=== PATIENT | female | born 1985 | race Caucasian/White ===

== ENCOUNTER 2023-03-24 08:50 | Emergency (ER) | payer BC ==
[2023-03-24 09:15] LABS: Absolute Lymphocytes (CBC) 1.8 K/uL (0.7-4.9); Hematocrit 38.4 % (36.0-45.0); Lymphocytes % 30.8 % (15.3-44.8); MCV 87.2 fL (80-100); MPV 8.8 fL (7.6-11.3); Platelets 231 thou/uL (152-406); RBC Red Blood Cell Count 4.41 M/uL (3.86-4.86)
--- OUTSIDE RECORDS SUMMARY | 2023-03-24 09:17 | XMS REPORT | Continuity of Care Document ---
:1985 Author Organization [facility] t Address [address] [facility]. [address] [place] [address] Care Team Providers Name Role Phone Bryon Lopez Jr. Primary Care Physician Courtney Brooks Attending Clinician Unavailable Barbara Macdonald Attending Clinician STEPHANI BARRETT Attending Clinician Unavailable Yanira Perry MD Attending Clinician ISSAC BARBER Attending Clinician Unavailable Stephani Barrett PA-C Attending Clinician Doctor Unassigned, [place] Attending Clinician Unavailable KRISTIN LOZANO Attending Clinician Unavailable MD KRISTIN LOZANO Attending Clinician Unavailable KRISTIN LOZANO Admitting Clinician Unavailable MD KRISTIN LOZANO Admitting Clinician Unavailable Payers Payer Name Policy Type Policy Number Effective Date Expiration Date S karen [employer] 6 [id number] 2021 [facility] t [employer] of 00:00:00 - [facility] Problems Condition Condition Condition Status Onset Resolution Last Treating Co mments Source Name Details Category Date Date Treatment Clinician Date [id number] Reactive Problem Com wed airway Spirit disease - [facility]I with acute [facility] exacerbati [facility] on, Medical unspecifie Center d asthma severity, unspecifie d whether persistent Allergic Allergic Problem Commo n rhinitis rhinitis [facility] [id number] BMI Problem Common 34.0-34.9, [facility] adult - [facility] [id number] Gross Problem Common hematuria [facility] Chronic Chronic Problem Common obstructiv obstructiv Sp elias e e asthma, - CHI pulmonary unspecifie St disease d [facility] Exacerbati Unspecifie Problem C ommon on of d asthma Spirit asthma with - [facility]I (acute) exacerbati [facility] Allergic Chronic Problem Common rhinitis allergic Spirit caused by rhinitis - [facility]I pollen due to [facility] unspecifie [facility]ica [facility] d Center seasonalit y Allergies, Adverse Reactions, Alerts Allergy Allergy Status Severity Reaction(s) Onset Inactive Treating Comm ents Source Name Type Date Date Clinician Iodine Propensi Active Hives 2019-05 Throat Methodi ty to 2-[address] adverse 00:00: Hospita reaction 00 l s to drug Shrimp Propensi Active Hives 2019-05 Methodi ty to 2-24 st adverse 00:00: Hospita reaction 00 l s to drug Iodine Propensi Active Hives 2018-0 Univers ty to 614 ity of adverse 00:00: [place] reaction 00 [facility] Shellfis Propensi Active Hives 2018-0 Univer s h ty to 614 ity of Derived adverse 00:00: [place] reaction 00 [facility] IODINE DRUG Active Med Hives 2018-0 Univers INGREDI 614 ity of 00:00: [place] 00 [facility] SHELLFIS DRUG Active Anaphylaxis 2018-0 Uni vers H INGREDI 14 ity of DERIVED 00:00: [place] 00 [facility] Shellfis Shellfis Active hives Common h (FN) h (FN) [facility] [id number] Drug Active hives Common 82 allergy [facility] Family History Family Member Diagnosis Comments Start Date Stop Date Source Other [facility]ergies [facility] Diabetes [facility] Other Hearing loss [facility] Other Hypertension [facility] Other Stroke [facility] Social History Social Habit Start Date Stop Date Quantity Comments Source [facility] of [facility] - Use [facility] Sex Assigned At Common Sp elias - [facility] Exposure to 2020-06-18 2020-07-18 Not sure University of SARS-CoV-2 (event) 00:00:00 11:31:00 [facility] Alcohol intake 2020-06-05 2020-06-05 Lifetime Buddhist 00:00:00 00:00:00 non-drinker Hospital (finding) History of Social 2020-06-05 2020-06-[address] function 00:00:00 00:00:00 Hospital Tobacco use and 2018-10-14 2018-10-14 Smokeless Universit y of exposure 00:00:00 00:00:00 tobacco non-user [facility] [facility] Smoking Status Start Date Stop Date Source Never Smoker [facility] Medications Ordered Filled Start Stop Current Ordering Indication Dosage Frequency Signature Comments Components Source Medication Medication Date Date Medication? Clinician (SIG) Name Name Amoxicillin Amoxicillin 2022-05 No 1{table BID Amoxicilli -Pot -Pot 0-30 t} n-Pot Clavulanate Clavulanate 00:00: Clavulanat 875-125 MG 875-125 MG 00 e 875-125 MG Amoxicillin Amoxicillin 2022-05 No 1{table BID Amoxicilli -Pot -Pot 0-30 t} n-Pot Clavulanate Clavulanate 00:00: Clavulanat 875-125 MG 875-125 MG 00 e 875-125 MG Amoxicillin Amoxicillin 2022-05 No 1{table BID Amoxicilli -Pot -Pot 0-30 t} n-Pot Clavulanate Clavulanate 00:00: Clavulanat 875-125 MG 875-125 MG 00 e 875-125 MG Amoxicillin Amoxicillin 2022-05 No 1{table BID Amoxicilli -Pot -Pot 0-30 t} n-Pot Clavulanate Clavulanate 00:00: Clavulanat 875-125 MG 875-125 MG 00 e 875-125 MG Amoxicillin Amoxicillin 2022-05 No 1{table BID Amoxicilli -Pot -Pot 0-30 t} n-Pot Clavulanate Clavulanate 00:00: Clavulanat 875-125 MG 875-125 MG 00 e 875-125 MG Amoxicillin Amoxicillin 2022- No 1{table BID Amoxicilli -Pot -Pot 0-30 t} n-Pot Clavulanate Clavulanate 00:00: Clavulanat 875-125 MG 875-125 MG 00 e 875-125 MG Amoxicillin Amoxicillin 2022- No 1{table BID Amoxicilli -Pot -Pot 0-30 t} n-Pot Clavulanate Clavulanate 00:00: Clavulanat 875-125 MG 875-125 MG 00 e 875-125 MG Amoxicillin Amoxicillin 2022- No 1{table BID Amoxicilli -Pot -Pot 0-30 t} n-Pot Clavulanate Clavulanate 00:00: Clavulanat 875-125 MG 875-125 MG 00 e 875-125 MG Amoxicillin Amoxicillin 2022- No 1{table BID Amoxicilli -Pot -Pot 0-30 t} n-Pot Clavulanate Clavulanate 00:00: Clavulanat 875-125 MG 875-125 MG 00 e 875-125 MG Amoxicillin Amoxicillin 2022- No 1{table BID Amoxicilli -Pot -Pot 0-30 t} n-Pot Clavulanate Clavulanate 00:00: Clavulanat 875-125 MG 875-125 MG 00 e 875-125 MG Amoxicillin Amoxicillin 2022-1 No 1{table BID Amoxicilli -Pot -Pot 0-30 t} n-Pot Clavulanate Clavulanate 00:00: Clavulanat 875-125 MG 875-125 MG 00 e 875-125 MG Amoxicillin Amoxicillin 2022- No 1{table BID Amoxicilli -Pot -Pot 0-30 t} n-Pot Clavulanate Clavulanate 00:00: Clavulanat 875-125 MG 875-125 MG 00 e 875-125 MG Amoxicillin Amoxicillin 2022- No 1{table BID Amoxicilli -Pot -Pot 0-30 t} n-Pot Clavulanate Clavulanate 00:00: Clavulanat 875-125 MG 875-125 MG 00 e 875-125 MG Amoxicillin Amoxicillin 2022-1 No 1{table BID Amoxicilli -Pot -Pot 0-30 t} n-Pot Clavulanate Clavulanate 00:00: Clavulanat 875-125 MG 875-125 MG 00 e 875-125 MG allergy allergy 2023-0 No .2mL Common extract extract 6-30 Spirit 00:00: - [facility]I 00 [facility] allergy allergy 2023-0 No .2mL Common extract extract 30 Spirit 00:00: - [facility]I 00 [facility] allergy allergy 2023-0 No .2mL Common extract extract 10-30 Spirit 00:00: - [facility]I 00 [facility] allergy allergy 2023-0 No .2mL Common extract extract 10-30 Spirit 00:00: - [facility] 00 [facility] allergy allergy 2023-0 No .2mL Common extract extract 10-30 Spirit 00:00: - [facility] 00 [facility] allergy allergy 2023-0 No .2mL Common extract extract 10-30 Spirit 00:00: - [facility] allergy allergy 2023-0 No .2mL Common extract extract 10-30 Spirit 00:00: - CHI [facility] allergy allergy 2023-0 No .2mL Common extract extract 10-30 Spirit 00:00: - [facility] 00 [facility] allergy allergy 2023-0 No .2mL Common extract extract 10-30 Spirit 00:00: - [facility] 00 [facility] allergy allergy 2023-0 No .2mL Common extract extract 10-30 Spirit 00:00: - [facility] 00 [facility] allergy allergy 2023-0 No .2mL Common extract extract 10-30 Spirit 00:00: - [facility] 00 [facility] allergy allergy 2023-0 No .2mL Common extract extract 10-30 Spirit 00:00: - [facility] 00 [facility] allergy allergy 2023-0 No .2mL Common extract extract 10-30 Spirit 00:00: - [facility] 00 [facility] allergy allergy 2023-0 No .2mL Common extract extract 10-30 Spirit 00:00: - [facility] 00 [facility] allergy allergy 2023-0 No .2mL Common extract extract 10-30 Spirit 00:00: - [facility] 00 [facility] allergy allergy 2023-0 No .2mL Common extract extract 30 Spirit 00:00: - [facility] 00 [facility] allergy allergy 2023-0 No .2mL Common extract extract 6-30 Spirit 00:00: - [facility] 00 [facility] allergy allergy 3-0 No .2mL Common extract extract 630 Spirit 00:00: - [facility]I 00 [facility] allergy allergy 3-0 No .2mL Common extract extract 630 Spirit 00:00: - [facility] 00 [facility] allergy allergy 3-0 No .2mL Common extract extract 630 Spirit 00:00: - [facility] 00 [facility] allergy allergy 3-0 No .2mL Common extract extract 30 Spirit 00:00: - CHI [facility] allergy allergy 3-0 No .2mL Common extract extract 10-30 Spirit 00:00: - CHI [facility] allergy allergy 3-0 No .2mL Common extract extract 10-30 Spirit 00:00: - CH[facility] allergy allergy 3-0 No .2mL Common extract extract 10-30 Spirit 00:00: - CHI [facility] allergy allergy 3-0 No .2mL Common extract extract 10-30 Spirit 00:00: - CH[facility] allergy allergy 3-0 No .2mL Common extract extract 10-30 Spirit 00:00: - CHI [facility] allergy allergy 3-0 No .2mL Common extract extract 10-30 Spirit 00:00: - CHI [facility] allergy allergy 3-0 No .2mL Common extract extract 30 Spirit 00:00: - CHI [facility] allergy allergy 2023-0 No .2mL Common extract extract 10-30 Spirit 00:00: - [facility] 00 [facility] allergy allergy 2023-0 No .2mL Common extract extract 30 Spirit 00:00: - [facility] 00 [facility] allergy allergy 2023-0 No .2mL Common extract extract 30 Spirit 00:00: - [facility] 00 [facility] allergy allergy 2023-0 No .2mL Common extract extract 630 Spirit 00:00: - [facility] 00 [facility] allergy allergy 2023-0 No .2mL Common extract extract 630 Spirit 00:00: - [facility] 00 [facility] allergy allergy 2023-0 No .2mL Common extract extract 6-30 Spirit 00:00: - [facility] 00 [facility] allergy allergy 2023-0 No .2mL Common extract extract 30 Spirit 00:00: - [facility] 00 [facility] allergy allergy 3-0 No .2mL Common extract extract 30 Spirit 00:00: - [facility] 00 [facility] allergy allergy 2023-0 No .2mL Common extract extract 30 Spirit 00:00: - [facility] 00 [facility] allergy allergy 3-0 No .2mL Common extract extract 10-30 Spirit 00:00: - [facility]I 00 [facility] allergy allergy 3-0 No .2mL Common extract extract 10-30 Spirit 00:00: - CHI [facility] allergy allergy 3-0 No .2mL Common extract extract 10-30 Spirit 00:00: - CHI [facility] allergy allergy 3-0 No .2mL Common extract extract 10-30 Spirit 00:00: - CHI [facility] allergy allergy 3-0 No .2mL Common extract extract 10-30 Spirit 00:00: - CHI [facility] allergy allergy 3-0 No .2mL Common extract extract 10-30 Spirit 00:00: - CHI [facility] allergy allergy 3-0 No .2mL Common extract extract 10-30 Spirit 00:00: - [facility]I 00 [facility] allergy allergy 3-0 No .2mL Common extract extract 10-30 Spirit 00:00: - CHI [facility] allergy allergy 2023-0 No .2mL Common extract extract 10-30 Spirit 00:00: - [facility]I 00 [facility] allergy allergy 2023-0 No .2mL Common extract extract 10-30 Spirit 00:00: - [facility] 00 [facility] allergy allergy 2023-0 No .2mL Common extract extract 10-30 Spirit 00:00: - [facility]I 00 [facility] allergy allergy 2023-0 No .2mL Common extract extract 30 Spirit 00:00: - [facility]I 00 [facility] allergy allergy 2023-0 No .2mL Common extract extract 30 Spirit 00:00: - [facility]I 00 [facility] allergy allergy 2023-0 No .2mL Common extract extract 30 Spirit 00:00: - [facility] 00 [facility] allergy allergy 2023-0 No .2mL Common extract extract 10-30 Spirit 00:00: - [facility]I 00 [facility] allergy allergy 2023-0 No .2mL Common extract extract 10-30 Spirit 00:00: - [facility] 00 [facility] allergy allergy 2023-0 No .2mL Common extract extract 10-30 Spirit 00:00: - [facility] 00 [facility] allergy allergy 2023-0 No .2mL Common extract extract 10-30 Spirit 00:00: - [facility] 00 [facility] allergy allergy 3-0 No .2mL Common extract extract 10-30 Spirit 00:00: - [facility] 00 [facility] allergy allergy 3-0 No .2mL Common extract extract 10-30 Spirit 00:00: - [facility] 00 [facility] allergy allergy 3-0 No .2mL Common extract extract 10-30 Spirit 00:00: - CHI [facility] allergy allergy 3-0 No .2mL Common extract extract 10-30 Spirit 00:00: - [facility]I 00 [facility] allergy allergy 3-0 No .2mL Common extract extract 10-30 Spirit 00:00: - [facility] 00 [facility] allergy allergy 3-0 No .2mL Common extract extract 10-30 Spirit 00:00: - [facility] 00 [facility] allergy allergy 2023-0 No .2mL Common extract extract 10-30 Spirit 00:00: - [facility] 00 [facility] allergy allergy 2023-0 No .2mL Common extract extract 10-30 Spirit 00:00: - [facility] 00 [facility] allergy allergy 2023-0 No .2mL Common extract extract 10-30 Spirit 00:00: - [facility] 00 [facility] allergy allergy 2023-0 No .2mL Common extract extract 10-30 Spirit 00:00: - [facility] 00 [facility] allergy allergy 2023-0 No .2mL Common extract extract 10-30 Spirit 00:00: - [facility] 00 [facility] allergy allergy 2023-0 No .2mL Common extract extract 10-30 Spirit 00:00: - [facility]I 00 [facility] allergy allergy 2023-0 No .2mL Common extract extract 6-30 Spirit 00:00: - [facility] 00 [facility] allergy allergy 2023-0 No .2mL Common extract extract 630 Spirit 00:00: - [facility] 00 [facility] allergy allergy 2023-0 No .2mL Common extract extract 630 Spirit 00:00: - [facility] 00 [facility] allergy allergy 2023-0 No .2mL Common extract extract 630 [facility] 00:00: - [facility] 00 [facility] allergy allergy 2023-0 No .2mL Common extract extract 630 Spirit 00:00: - [facility] 00 [facility] allergy allergy 2023-0 No .15mL Common extract extract 6 Spirit 00:00: - [facility] 00 [facility] allergy allergy 2023-0 No .15mL Common extract extract 6 Spirit 00:00: - [facility] 00 [facility] allergy allergy 2023-0 No .15mL Common extract extract 6 Spirit 00:00: - [facility] 00 [facility] allergy allergy 2023-0 No .15mL Common extract extract 6 Spirit 00:00: - [facility] 00 [facility] allergy allergy 2023-0 No .15mL Common extract extract 6 Spirit 00:00: - [facility] 00 [facility] allergy allergy 2023-0 No .15mL Common extract extract 6 Spirit 00:00: - [facility] 00 [facility] allergy allergy 2023-0 No .15mL Common extract extract 6 Spirit 00:00: - [facility] 00 [facility] allergy allergy 2023-0 No .15mL Common extract extract 6-23 Spirit 00:00: - [facility] 00 [facility] allergy allergy 2023-0 No .15mL Common extract extract 6- Spirit 00:00: - [facility]I 00 [facility] allergy allergy 2023-0 No .15mL Common extract extract 6-23 Spirit 00:00: - [facility] 00 [facility] allergy allergy 2023-0 No .15mL Common extract extract 6- Spirit 00:00: - [facility] 00 [facility] allergy allergy 2023-0 No .15mL Common extract extract 6-23 Spirit 00:00: - [facility] 00 [facility] allergy allergy 2023-0 No .15mL Common extract extract 6-23 Spirit 00:00: - [facility] 00 [facility] allergy allergy 2023-0 No .15mL Common extract extract 6-23 Spirit 00:00: - [facility] 00 [facility] allergy allergy 2023-0 No .15mL Common extract extract 6-23 Spirit 00:00: - [facility] 00 [facility] allergy allergy 3-0 No .15mL Common extract extract 6-23 Spirit 00:00: - [facility] 00 [facility] allergy allergy 3-0 No .15mL Common extract extract 6-23 Spirit 00:00: - [facility] 00 [facility] allergy allergy 3-0 No .15mL Common extract extract 6- Spirit 00:00: - [facility] 00 [facility] allergy allergy 3-0 No .15mL Common extract extract 6-23 Spirit 00:00: - [facility] 00 [facility] allergy allergy 3-0 No .15mL Common extract extract 6 Spirit 00:00: - [facility] 00 [facility] allergy allergy 3-0 No .15mL Common extract extract 6-23 Spirit 00:00: - [facility] 00 [facility] allergy allergy 3-0 No .15mL Common extract extract 6- Spirit 00:00: - [facility] 00 [facility] allergy allergy 3-0 No .15mL Common extract extract 6-23 Spirit 00:00: - [facility] 00 [facility] allergy allergy 3-0 No .15mL Common extract extract 6-23 Spirit 00:00: - [facility] 00 [facility] allergy allergy 2023-0 No .15mL Common extract extract 6-23 Spirit 00:00: - [facility] 00 [facility] allergy allergy 2023-0 No .15mL Common extract extract 6-23 Spirit 00:00: - [facility] 00 [facility] allergy allergy 2023-0 No .15mL Common extract extract 6-23 Spirit 00:00: - [facility] 00 [facility] allergy allergy 2023-0 No .15mL Common extract extract 6-23 Spirit 00:00: - [facility] 00 [facility] allergy allergy 2023-0 No .15mL Common extract extract 6-23 Spirit 00:00: - [facility] 00 [facility] allergy allergy 2023-0 No .15mL Common extract extract 6-23 Spirit 00:00: - [facility] 00 [facility] allergy allergy 2023-0 No .15mL Common extract extract 6 Spirit 00:00: - [facility] 00 [facility] allergy allergy 2023-0 No .15mL Common extract extract 6 Spirit 00:00: - [facility] 00 [facility] allergy allergy 3-0 No .15mL Common extract extract 6 Spirit 00:00: - [facility] 00 [facility] allergy allergy 2023-0 No .15mL Common extract extract 6 [facility] 00:00: - [facility] 00 [facility] allergy allergy 2023-0 No .15mL Common extract extract 6 Spirit 00:00: - [facility] 00 [facility] allergy allergy 3-0 No .15mL Common extract extract 6 Spirit 00:00: - [facility] 00 [facility] allergy allergy 3-0 No .15mL Common extract extract 6 [facility] 00:00: - [facility] 00 [facility] allergy allergy 2023-0 No .15mL Common extract extract 6 [facility] 00:00: - [facility] 00 [facility] allergy allergy 2023-0 No .15mL Common extract extract 6 [facility] 00:00: - [facility] 00 [facility] allergy allergy 3-0 No .15mL Common extract extract 6 [facility] 00:00: - [facility] 00 [facility] allergy allergy 2023-0 No .15mL Common extract extract 10-23 Spirit 00:00: - [facility] 00 [facility] allergy allergy 2023-0 No .15mL Common extract extract 6 [facility] 00:00: - [facility] 00 [facility] allergy allergy 2023-0 No .15mL Common extract extract 6 [facility] 00:00: - [facility] 00 [facility] allergy allergy 2023-0 No .15mL Common extract extract 6 [facility] 00:00: - [facility] 00 [facility] allergy allergy 2023-0 No .15mL Common extract extract 6 [facility] 00:00: - [facility] 00 [facility] allergy allergy 2023-0 No .15mL Common extract extract 6 [facility] 00:00: - [facility] 00 [facility] allergy allergy 2023-0 No .15mL Common extract extract 623 Spirit 00:00: - [facility] 00 [facility] allergy allergy 2023-0 No .15mL Common extract extract 6-23 [facility] 00:00: - [facility] 00 [facility] allergy allergy 2023-0 No .15mL Common extract extract 6- Spirit 00:00: - [facility] 00 [facility] allergy allergy 2023-0 No .15mL Common extract extract 6- Spirit 00:00: - [facility] 00 [facility] allergy allergy 2023-0 No .15mL Common extract extract 6- Spirit 00:00: - [facility] 00 [facility] allergy allergy 2023-0 No .15mL Common extract extract 6 [facility] 00:00: - [facility] 00 [facility] allergy allergy 2023-0 No .15mL Common extract extract 6 [facility] 00:00: - [facility] 00 [facility] allergy allergy 2023-0 No .15mL Common extract extract 6 [facility] 00:00: - [facility] 00 [facility] allergy allergy 2023-0 No .15mL Common extract extract 6 Spirit 00:00: - [facility] 00 [facility] allergy allergy 2023-0 No .15mL Common extract extract 6 Spirit 00:00: - [facility] 00 [facility] allergy allergy 2023-0 No .15mL Common extract extract 6 [facility] 00:00: - [facility] 00 [facility] allergy allergy 2023-0 No .15mL Common extract extract 6 Spirit 00:00: - [facility] 00 [facility] allergy allergy 2023-0 No .15mL Common extract extract 6 [facility] 00:00: - [facility] 00 [facility] allergy allergy 2023-0 No .15mL Common extract extract 6-23 Spirit 00:00: - [facility] 00 [facility] allergy allergy 2023-0 No .15mL Common extract extract 6- Spirit 00:00: - [facility] 00 [facility] allergy allergy 2023-0 No .15mL Common extract extract 6- Spirit 00:00: - [facility] 00 [facility] allergy allergy 2023-0 No .15mL Common extract extract 6-23 [facility] 00:00: - [facility] 00 [facility] allergy allergy 2023-0 No .15mL Common extract extract 6-23 [facility] 00:00: - [facility] 00 [facility] allergy allergy 2023-0 No .15mL Common extract extract 6-23 [facility] 00:00: - [facility] 00 [facility] allergy allergy 2023-0 No .15mL Common extract extract 6 [facility] 00:00: - [facility] 00 [facility] allergy allergy 2023-0 No .15mL Common extract extract 6 [facility] 00:00: - [facility] 00 [facility] allergy allergy 2023-0 No .15mL Common extract extract 10-23 Spirit 00:00: - [facility] 00 [facility] allergy allergy 2023-0 No .15mL Common extract extract 10-23 [facility] 00:00: - [facility] 00 [facility] allergy allergy 2023-0 No .15mL Common extract extract 10-23 [facility] 00:00: - [facility] 00 [facility] allergy allergy 2023-0 No .15mL Common extract extract 10-23 [facility] 00:00: - [facility] 00 [facility] allergy allergy 2023-0 No .15mL Common extract extract 10-23 [facility] 00:00: - [facility] 00 [facility] allergy allergy 2023-0 No .1mL Common extract extract 6-16 Spirit 00:00: - [facility] 00 [facility] allergy allergy 2023-0 No .1mL Common extract extract 616 [facility] 00:00: - [facility] 00 [facility] allergy allergy 2023-0 No .1mL Common extract extract 6-16 [facility] 00:00: - [facility] 00 [facility] allergy allergy 2023-0 No .1mL Common extract extract 6-16 [facility] 00:00: - [facility] 00 [facility] allergy allergy 2023-0 No .1mL Common extract extract 6-16 [facility] 00:00: - [facility] 00 [facility] allergy allergy 2023-0 No .1mL Common extract extract 6-16 [facility] 00:00: - [facility] 00 [facility] allergy allergy 2023-0 No .1mL Common extract extract 6-16 [facility] 00:00: - [facility] 00 [facility] allergy allergy 2023-0 No .1mL Common extract extract 6-16 [facility] 00:00: - [facility] 00 [facility] allergy allergy 2023-0 No .1mL Common extract extract 6-16 [facility] 00:00: - [facility] 00 [facility] allergy allergy 2023-0 No .1mL Common extract extract 6-16 [facility] 00:00: - [facility] 00 [facility] allergy allergy 2023-0 No .1mL Common extract extract 6-16 [facility] 00:00: - [facility] 00 [facility] allergy allergy 3-0 No .1mL Common extract extract 6-16 [facility] 00:00: - [facility] 00 [facility] allergy allergy 3-0 No .1mL Common extract extract 6-16 [facility] 00:00: - [facility] 00 [facility] allergy allergy 3-0 No .1mL Common extract extract 6-16 [facility] 00:00: - [facility] 00 [facility] allergy allergy 3-0 No .1mL Common extract extract 616 [facility] 00:00: - [facility] 00 [facility] allergy allergy 3-0 No .1mL Common extract extract 16 [facility] 00:00: - [facility] 00 [facility] allergy allergy 3-0 No .1mL Common extract extract 16 [facility] 00:00: - [facility] 00 [facility] allergy allergy 3-0 No .1mL Common extract extract 616 [facility] 00:00: - [facility] 00 [facility] allergy allergy 3-0 No .1mL Common extract extract 16 [facility] 00:00: - [facility] 00 [facility] allergy allergy 3-0 No .1mL Common extract extract 616 [facility] 00:00: - [facility] 00 [facility] allergy allergy 3-0 No .1mL Common extract extract 16 [facility] 00:00: - [facility] 00 [facility] allergy allergy 3-0 No .1mL Common extract extract 6-16 [facility] 00:00: - [facility] 00 [facility] allergy allergy 2023-0 No .1mL Common extract extract -16 [facility] 00:00: - [facility] 00 [facility] allergy allergy 2023-0 No .1mL Common extract extract 6-16 [facility] 00:00: - [facility] 00 [facility] allergy allergy 3-0 No .1mL Common extract extract 6-16 [facility] 00:00: - [facility] 00 [facility] allergy allergy 2023-0 No .1mL Common extract extract [facility] 00:00: - [facility] 00 [facility] allergy allergy 2023-0 No .1mL Common extract extract [facility]16 [facility] 00:00: - [facility] 00 [facility] allergy allergy 2023-0 No .1mL Common extract extract [facility]16 [facility] 00:00: - [facility] 00 [facility] allergy allergy 3-0 No .1mL Common extract extract [facility]16 [facility] 00:00: - [facility] 00 [facility] allergy allergy 3-0 No .1mL Common extract extract [facility] 00:00: - [facility] 00 [facility] allergy allergy 3-0 No .1mL Common extract extract [facility]16 [facility] 00:00: - [facility] 00 [facility] allergy allergy 3-0 No .1mL Common extract extract [facility] 00:00: - [facility] 00 [facility] allergy allergy 3-0 No .1mL Common extract extract [facility]16 [facility] 00:00: - [facility] 00 [facility] allergy allergy 3-0 No .1mL Common extract extract [facility]16 [facility] 00:00: - [facility] 00 [facility] allergy allergy 3-0 No .1mL Common extract extract [facility]16 [facility] 00:00: - [facility] 00 [facility] allergy allergy 3-0 No .1mL Common extract extract [facility]16 [facility] 00:00: - [facility] 00 [facility] allergy allergy 3-0 No .1mL Common extract extract [facility]16 [facility] 00:00: - [facility] 00 [facility] allergy allergy 3-0 No .1mL Common extract extract 616 [facility] 00:00: - [facility] 00 [facility] allergy allergy 3-0 No .1mL Common extract extract [facility]16 [facility] 00:00: - [facility] 00 [facility] allergy allergy 2023-0 No .1mL Common extract extract [facility]16 [facility] 00:00: - [facility]I 00 [facility] allergy allergy 2023-0 No .1mL Common extract extract [facility] 00:00: - [facility] 00 [facility] allergy allergy 2023-0 No .1mL Common extract extract [facility] 00:00: - [facility] 00 [facility] allergy allergy 2023-0 No .1mL Common extract extract [facility] 00:00: - [facility] 00 [facility] allergy allergy 2023-0 No .1mL Common extract extract [facility] 00:00: - [facility] 00 [facility] allergy allergy 2023-0 No .1mL Common extract extract [facility] 00:00: - [facility] 00 [facility] allergy allergy 2023-0 No .1mL Common extract extract [facility]16 [facility] 00:00: - [facility] 00 [facility] allergy allergy 3-0 No .1mL Common extract extract [facility] 00:00: - [facility] 00 [facility] allergy allergy 2023-0 No .1mL Common extract extract [facility] 00:00: - [facility] 00 [facility] allergy allergy 3-0 No .1mL Common extract extract [facility] 00:00: - [facility] 00 [facility] allergy allergy 3-0 No .1mL Common extract extract [facility] 00:00: - [facility]I 00 [facility] allergy allergy 3-0 No .1mL Common extract extract 16 [facility] 00:00: - [facility]I 00 [facility] allergy allergy 3-0 No .1mL Common extract extract 16 [facility] 00:00: - [facility]I 00 [facility] allergy allergy 3-0 No .1mL Common extract extract 16 [facility] 00:00: - [facility]I 00 [facility] allergy allergy 3-0 No .1mL Common extract extract 16 [facility] 00:00: - [facility] 00 [facility] allergy allergy 3-0 No .1mL Common extract extract 16 [facility] 00:00: - [facility]I 00 [facility] allergy allergy 2023-0 No .1mL Common extract extract 16 [facility] 00:00: - [facility] 00 [facility] allergy allergy 2023-0 No .1mL Common extract extract 16 [facility] 00:00: - [facility] 00 [facility] allergy allergy 2023-0 No .1mL Common extract extract 16 [facility] 00:00: - [facility]I 00 [facility] allergy allergy 2023-0 No .1mL Common extract extract 616 [facility] 00:00: - [facility] 00 [facility] allergy allergy 2023-0 No .1mL Common extract extract [facility] 00:00: - [facility] 00 [facility] allergy allergy 2023-0 No .1mL Common extract extract [facility] 00:00: - [facility] 00 [facility] allergy allergy 2023-0 No .1mL Common extract extract 16 [facility] 00:00: - [facility] 00 [facility] allergy allergy 2023-0 No .1mL Common extract extract [facility] 00:00: - [facility] 00 [facility] allergy allergy 2023-0 No .1mL Common extract extract [facility] 00:00: - [facility] 00 [facility] allergy allergy 2023-0 No .1mL Common extract extract 616 [facility] 00:00: - [facility] 00 [facility] allergy allergy 2023-0 No .1mL Common extract extract 616 [facility] 00:00: - [facility] 00 [facility] allergy allergy 2023-0 No .1mL Common extract extract [facility] 00:00: - [facility] 00 [facility] allergy allergy 2023-0 No .1mL Common extract extract 616 [facility] 00:00: - [facility] 00 [facility] allergy allergy 2023-0 No .1mL Common extract extract [facility] 00:00: - [facility] 00 [facility] allergy allergy 2023-0 No .1mL Common extract extract [facility] 00:00: - [facility] 00 [facility] allergy allergy 2023-0 No .1mL Common extract extract [facility] 00:00: - [facility] 00 [facility] allergy allergy 2023-0 No .1mL Common extract extract [facility] 00:00: - [facility] 00 [facility] allergy allergy 2023-0 No .05mL Common extract extract [facility]05 [facility] 00:00: - [facility] 00 [facility] allergy allergy 2023-0 No .05mL Common extract extract 6[facility]05 [facility] 00:00: - [facility] 00 [facility] allergy allergy 2023-0 No .05mL Common extract extract 6[facility]05 [facility] 00:00: - [facility] 00 [facility] allergy allergy 2023-0 No .05mL Common extract extract [facility] 00:00: - [facility] 00 [facility] allergy allergy 2023-0 No .05mL Common extract extract 6[facility]05 [facility] 00:00: - [facility] 00 [facility] allergy allergy 2023-0 No .05mL Common extract extract 6[facility] 00:00: - [facility] 00 [facility] allergy allergy 2023-0 No .05mL Common extract extract [facility] 00:00: - [facility] 00 [facility] allergy allergy 2023-0 No .05mL Common extract extract 6[facility] 00:00: - [facility] 00 [facility] allergy allergy 2023-0 No .05mL Common extract extract 6[facility] 00:00: - [facility] 00 [facility] allergy allergy 2023-0 No .05mL Common extract extract 6[facility] 00:00: - [facility] 00 [facility] allergy allergy 2023-0 No .05mL Common extract extract 6[facility] 00:00: - [facility] 00 [facility] allergy allergy 2023-0 No .05mL Common extract extract 6[facility] 00:00: - [facility] 00 [facility] allergy allergy 2023-0 No .05mL Common extract extract 6[facility]05 [facility] 00:00: - [facility] 00 [facility] allergy allergy 2023-0 No .05mL Common extract extract 6[facility] 00:00: - [facility] 00 [facility] allergy allergy 2023-0 No .05mL Common extract extract 6[facility]05 [facility] 00:00: - [facility] 00 [facility] allergy allergy 2023-0 No .05mL Common extract extract 6[facility] 00:00: - [facility] 00 [facility] allergy allergy 2023-0 No .05mL Common extract extract [facility] 00:00: - [facility] 00 [facility] allergy allergy 2023-0 No .05mL Common extract extract [facility] 00:00: - [facility] 00 [facility] allergy allergy 2023-0 No .05mL Common extract extract [facility] 00:00: - [facility] 00 [facility] allergy allergy 2023-0 No .05mL Common extract extract 6[facility] 00:00: - [facility] 00 [facility] allergy allergy 2023-0 No .05mL Common extract extract [facility] 00:00: - [facility] 00 [facility] allergy allergy 2023-0 No .05mL Common extract extract [facility] 00:00: - [facility] 00 [facility] allergy allergy 2023-0 No .05mL Common extract extract [facility] 00:00: - [facility] 00 [facility] allergy allergy 2023-0 No .05mL Common extract extract [facility] 00:00: - [facility] 00 [facility] allergy allergy 2023-0 No .05mL Common extract extract [facility] 00:00: - [facility] 00 [facility] allergy allergy 2023-0 No .05mL Common extract extract [facility] 00:00: - [facility] 00 [facility] allergy allergy 2023-0 No .05mL Common extract extract [facility] 00:00: - [facility] 00 [facility] allergy allergy 2023-0 No .05mL Common extract extract [facility] 00:00: - [facility] 00 [facility] allergy allergy 2023-0 No .05mL Common extract extract [facility] 00:00: - [facility] 00 [facility] allergy allergy 2023-0 No .05mL Common extract extract [facility] 00:00: - [facility] 00 [facility] allergy allergy 2023-0 No .05mL Common extract extract [facility] 00:00: - [facility] 00 [facility] allergy allergy 2023-0 No .05mL Common extract extract [facility] 00:00: - [facility] 00 [facility] allergy allergy 2023-0 No .05mL Common extract extract [facility] 00:00: - [facility] 00 [facility] allergy allergy 2023-0 No .05mL Common extract extract [facility] 00:00: - [facility] 00 [facility] allergy allergy 2023-0 No .05mL Common extract extract [facility] 00:00: - [facility] 00 [facility] allergy allergy 2023-0 No .05mL Common extract extract [facility] 00:00: - [facility] 00 [facility] allergy allergy 2023-0 No .05mL Common extract extract 6[facility] 00:00: - [facility] 00 [facility] allergy allergy 2023-0 No .05mL Common extract extract 6[facility] 00:00: - [facility] 00 [facility] allergy allergy 2023-0 No .05mL Common extract extract 6[facility] 00:00: - [facility] 00 [facility] allergy allergy 2023-0 No .05mL Common extract extract [facility] 00:00: - [facility] 00 [facility] allergy allergy 2023-0 No .05mL Common extract extract [facility] 00:00: - [facility] 00 [facility] allergy allergy 2023-0 No .05mL Common extract extract [facility] 00:00: - [facility] 00 [facility] allergy allergy 2023-0 No .05mL Common extract extract [facility] 00:00: - [facility] 00 [facility] allergy allergy 2023-0 No .05mL Common extract extract [facility] 00:00: - [facility] 00 [facility] allergy allergy 2023-0 No .05mL Common extract extract [facility] 00:00: - [facility] 00 [facility] allergy allergy 2023-0 No .05mL Common extract extract [facility] 00:00: - [facility] 00 [facility] allergy allergy 2023-0 No .05mL Common extract extract [facility] 00:00: - [facility] 00 [facility] allergy allergy 2023-0 No .05mL Common extract extract [facility] 00:00: - [facility] 00 [facility] allergy allergy 2023-0 No .05mL Common extract extract [facility] 00:00: - [facility] 00 [facility] allergy allergy 2023-0 No .05mL Common extract extract [facility] 00:00: - [facility] 00 [facility] allergy allergy 2023-0 No .05mL Common extract extract [facility] 00:00: - [facility] 00 [facility] allergy allergy 2023-0 No .05mL Common extract extract [facility] 00:00: - [facility] 00 [facility] allergy allergy 2023-0 No .05mL Common extract extract [facility] 00:00: - [facility] 00 [facility] allergy allergy 2023-0 No .05mL Common extract extract [facility] 00:00: - [facility] 00 [facility] allergy allergy 2023-0 No .05mL Common extract extract [facility] 00:00: - [facility] 00 [facility] allergy allergy 2023-0 No .05mL Common extract extract [facility] 00:00: - [facility] 00 [facility] allergy allergy 2023-0 No .05mL Common extract extract [facility] 00:00: - [facility] 00 [facility] allergy allergy 2023-0 No .05mL Common extract extract [facility] 00:00: - [facility] 00 [facility] allergy allergy 2023-0 No .05mL Common extract extract [facility] 00:00: - [facility] 00 [facility] allergy allergy 2023-0 No .05mL Common extract extract [facility] 00:00: - [facility] 00 [facility] allergy allergy 2023-0 No .05mL Common extract extract [facility] 00:00: - [facility] 00 [facility] allergy allergy 2023-0 No .05mL Common extract extract [facility] 00:00: - [facility] 00 [facility] allergy allergy 2023-0 No .05mL Common extract extract [facility] 00:00: - [facility] 00 [facility] allergy allergy 2023-0 No .05mL Common extract extract [facility] 00:00: - [facility] 00 [facility] allergy allergy 2023-0 No .05mL Common extract extract [facility] 00:00: - [facility] 00 [facility] allergy allergy 2023-0 No .05mL Common extract extract [facility] 00:00: - [facility] 00 [facility] allergy allergy 2023-0 No .05mL Common extract extract 6[facility] 00:00: - [facility] 00 [facility] allergy allergy 2023-0 No .05mL Common extract extract [facility] 00:00: - [facility] 00 [facility] allergy allergy 2023-0 No .05mL Common extract extract [facility] 00:00: - [facility] 00 [facility] allergy allergy 2023-0 No .05mL Common extract extract [facility] 00:00: - [facility] 00 [facility] allergy allergy 2023-0 No .05mL Common extract extract 6[facility] 00:00: - [facility]I 00 [facility] allergy allergy 2023-0 No .05mL Common extract extract [facility] 00:00: - [facility]I 00 [facility] allergy allergy 2023-0 No .5mL Common extract extract 5[facility]26 [facility] 00:00: - [facility]I 00 [facility] allergy allergy 2023-0 No .5mL Common extract extract 5[facility]26 [facility] 00:00: - [facility]I 00 [facility] allergy allergy 2023-0 No .5mL Common extract extract 5[facility]26 [facility] 00:00: - [facility] 00 [facility] allergy allergy 2023-0 No .5mL Common extract extract 5[facility]26 [facility] 00:00: - [facility]I 00 [facility] allergy allergy 2023-0 No .5mL Common extract extract 09-25 [facility] 00:00: - [facility]I 00 [facility] allergy allergy 2023-0 No .5mL Common extract extract 09[facility]25 [facility] 00:00: - [facility]I 00 [facility] allergy allergy 2023-0 No .5mL Common extract extract 09[facility]25 [facility] 00:00: - [facility]I 00 [facility] allergy allergy 2023-0 No .5mL Common extract extract 09[facility]25 [facility] 00:00: - [facility]I 00 [facility] allergy allergy 2023-0 No .5mL Common extract extract 09[facility]25 [facility] 00:00: - [facility]I 00 [facility] allergy allergy 3-0 No .5mL Common extract extract 09-25 [facility] 00:00: - CHI [facility] allergy allergy 2023-0 No .5mL Common extract extract 09[facility]25 [facility] 00:00: - CHI [facility] allergy allergy 3-0 No .5mL Common extract extract 09-25 [facility] 00:00: - CHI [facility] allergy allergy 2023-0 No .5mL Common extract extract 09[facility]25 [facility] 00:00: - [facility] 00 [facility] allergy allergy 3-0 No .5mL Common extract extract 09[facility]25 [facility] 00:00: - CHI [facility] allergy allergy 2023-0 No .5mL Common extract extract 09[facility]25 [facility] 00:00: - CHI [facility] allergy allergy 2023-0 No .5mL Common extract extract 09[facility]25 [facility] 00:00: - [facility]I 00 [facility] allergy allergy 2023-0 No .5mL Common extract extract 09[facility]25 [facility] 00:00: - [facility]I 00 [facility] allergy allergy 2023-0 No .5mL Common extract extract 09[facility]25 [facility] 00:00: - [facility]I 00 [facility] allergy allergy 2023-0 No .5mL Common extract extract 09[facility]25 [facility] 00:00: - [facility] 00 [facility] allergy allergy 2023-0 No .5mL Common extract extract 09[facility]25 [facility] 00:00: - [facility]I 00 [facility] allergy allergy 2023-0 No .5mL Common extract extract 5 [facility] 00:00: - [facility] 00 [facility] allergy allergy 2023-0 No .5mL Common extract extract 09[facility]25 [facility] 00:00: - [facility] 00 [facility] allergy allergy 3-0 No .5mL Common extract extract 09[facility]25 [facility] 00:00: - [facility] 00 [facility] allergy allergy 3-0 No .5mL Common extract extract 09[facility]25 [facility] 00:00: - [facility] 00 [facility] allergy allergy 3-0 No .5mL Common extract extract 09[facility]25 [facility] 00:00: - [facility]I 00 [facility] allergy allergy 3-0 No .5mL Common extract extract 09[facility]25 [facility] 00:00: - [facility]I 00 [facility] allergy allergy 3-0 No .5mL Common extract extract 09[facility]25 [facility] 00:00: - [facility]I 00 [facility] allergy allergy 3-0 No .5mL Common extract extract 09[facility]25 [facility] 00:00: - [facility]I 00 [facility] allergy allergy 3-0 No .5mL Common extract extract 09[facility]25 [facility] 00:00: - [facility]I 00 [facility] allergy allergy 3-0 No .5mL Common extract extract 09[facility]25 [facility] 00:00: - [facility]I 00 [facility] allergy allergy 3-0 No .5mL Common extract extract 09[facility]25 [facility] 00:00: - [facility]I 00 [facility] allergy allergy 3-0 No .5mL Common extract extract 09[facility]25 [facility] 00:00: - [facility]I 00 [facility] allergy allergy 3-0 No .5mL Common extract extract 09[facility]25 [facility] 00:00: - [facility] 00 [facility] allergy allergy 2023-0 No .5mL Common extract extract 09[facility]25 [facility] 00:00: - [facility] 00 [facility] allergy allergy 2023-0 No .5mL Common extract extract 09[facility]25 [facility] 00:00: - [facility]I 00 [facility] allergy allergy 3-0 No .5mL Common extract extract 09[facility]25 [facility] 00:00: - [facility]I 00 [facility] allergy allergy 2023-0 No .5mL Common extract extract 5 [facility] 00:00: - [facility] 00 [facility] allergy allergy 2023-0 No .5mL Common extract extract 5 [facility] 00:00: - [facility] 00 [facility] allergy allergy 2023-0 No .5mL Common extract extract 09[facility]25 [facility] 00:00: - [facility] 00 [facility] allergy allergy 2023-0 No .5mL Common extract extract 09[facility]25 [facility] 00:00: - [facility]I 00 [facility] allergy allergy 2023-0 No .5mL Common extract extract 09[facility]25 [facility] 00:00: - [facility] 00 [facility] allergy allergy 2023-0 No .5mL Common extract extract 09[facility]25 [facility] 00:00: - [facility] 00 [facility] allergy allergy 2023-0 No .5mL Common extract extract 09[facility]25 [facility] 00:00: - [facility] 00 [facility] allergy allergy 2023-0 No .5mL Common extract extract 09[facility]25 [facility] 00:00: - [facility]I 00 [facility] allergy allergy 2023-0 No .5mL Common extract extract 09[facility]25 [facility] 00:00: - [facility] 00 [facility] allergy allergy 2023-0 No .5mL Common extract extract 09-25 [facility] 00:00: - CHI [facility] allergy allergy 2023-0 No .5mL Common extract extract 09[facility]25 [facility] 00:00: - [facility] 00 [facility] allergy allergy 3-0 No .5mL Common extract extract 09[facility]25 [facility] 00:00: - [facility]I 00 [facility] allergy allergy 2023-0 No .5mL Common extract extract 09[facility]25 [facility] 00:00: - [facility] 00 [facility] allergy allergy 2023-0 No .5mL Common extract extract 09[facility]25 [facility] 00:00: - [facility] 00 [facility] allergy allergy 2023-0 No .5mL Common extract extract 09[facility]25 [facility] 00:00: - [facility] 00 [facility] allergy allergy 2023-0 No .5mL Common extract extract 09-25 [facility] 00:00: - [facility] 00 [facility] allergy allergy 2023-0 No .5mL Common extract extract 09[facility]25 [facility] 00:00: - [facility] 00 [facility] allergy allergy 2023-0 No .5mL Common extract extract 09[facility]25 [facility] 00:00: - [facility] 00 [facility] allergy allergy 2023-0 No .5mL Common extract extract 09[facility]25 [facility] 00:00: - [facility] 00 [facility] allergy allergy 2023-0 No .5mL Common extract extract 09[facility]25 [facility] 00:00: - [facility] 00 [facility] allergy allergy 2023-0 No .5mL Common extract extract 09[facility]25 [facility] 00:00: - [facility] 00 [facility] allergy allergy 2023-0 No .5mL Common extract extract 09[facility]25 [facility] 00:00: - [facility] 00 [facility] allergy allergy 2023-0 No .5mL Common extract extract 09[facility]25 [facility] 00:00: - [facility] 00 [facility] allergy allergy 2023-0 No .5mL Common extract extract 09[facility]25 [facility] 00:00: - [facility] 00 [facility] allergy allergy 2023-0 No .5mL Common extract extract 09[facility]25 [facility] 00:00: - [facility] 00 [facility] allergy allergy 3-0 No .5mL Common extract extract 09[facility]25 [facility] 00:00: - [facility] 00 [facility] allergy allergy 2023-0 No .5mL Common extract extract 09[facility]25 [facility] 00:00: - CHI [facility] allergy allergy 2023-0 No .5mL Common extract extract 09[facility]25 [facility] 00:00: - [facility] 00 [facility] allergy allergy 2023-0 No .5mL Common extract extract 09[facility]25 [facility] 00:00: - [facility] 00 [facility] allergy allergy 2023-0 No .5mL Common extract extract 09[facility]25 [facility] 00:00: - CHI [facility] allergy allergy 2023-0 No .5mL Common extract extract 09[facility]25 [facility] 00:00: - [facility] 00 [facility] allergy allergy 2023-0 No .5mL Common extract extract 09[facility]25 [facility] 00:00: - [facility] 00 [facility] allergy allergy 2023-0 No .5mL Common extract extract 09[facility]25 [facility] 00:00: - [facility] 00 [facility] allergy allergy 2023-0 No .5mL Common extract extract 09[facility]25 [facility] 00:00: - [facility] 00 [facility] allergy allergy 2023-0 No .5mL Common extract extract 09[facility]25 [facility] 00:00: - [facility] 00 [facility] allergy allergy 2023-0 No .5mL Common extract extract 09[facility]25 [facility] 00:00: - [facility] 00 [facility] allergy allergy 2023-0 No .4mL Common extract extract 5 [facility] 00:00: - [facility] 00 [facility] allergy allergy 2023-0 No .4mL Common extract extract 5[facility]19 [facility] 00:00: - [facility] 00 [facility] allergy allergy 3-0 No .4mL Common extract extract 5- [facility] 00:00: - [facility] 00 [facility] allergy allergy 3-0 No .4mL Common extract extract 5- [facility] 00:00: - [facility] 00 [facility] allergy allergy 3-0 No .4mL Common extract extract 5- [facility] 00:00: - [facility] 00 [facility] allergy allergy 3-0 No .4mL Common extract extract 5- [facility] 00:00: - [facility] 00 [facility] allergy allergy 3-0 No .4mL Common extract extract 5- [facility] 00:00: - [facility] 00 [facility] allergy allergy 3-0 No .4mL Common extract extract 5 [facility] 00:00: - [facility] 00 [facility] allergy allergy 3-0 No .4mL Common extract extract 5- [facility] 00:00: - [facility] 00 [facility] allergy allergy 3-0 No .4mL Common extract extract 5- [facility] 00:00: - [facility] 00 [facility] allergy allergy 3-0 No .4mL Common extract extract 5- [facility] 00:00: - [facility] 00 [facility] allergy allergy 3-0 No .4mL Common extract extract 5- [facility] 00:00: - [facility] 00 [facility] allergy allergy 3-0 No .4mL Common extract extract 5[facility]19 [facility] 00:00: - [facility] 00 [facility] allergy allergy 2023-0 No .4mL Common extract extract [facility]- [facility] 00:00: - [facility] 00 [facility] allergy allergy 3-0 No .4mL Common extract extract 5- [facility] 00:00: - [facility] 00 [facility] allergy allergy 3-0 No .4mL Common extract extract [facility]- [facility] 00:00: - [facility] 00 [facility] allergy allergy 3-0 No .4mL Common extract extract [facility]- [facility] 00:00: - [facility] 00 [facility] allergy allergy 3-0 No .4mL Common extract extract 5[facility]19 [facility] 00:00: - [facility] 00 [facility] allergy allergy 2023-0 No .4mL Common extract extract 5[facility]19 [facility] 00:00: - [facility] 00 [facility] allergy allergy 3-0 No .4mL Common extract extract 5[facility]19 [facility] 00:00: - [facility] 00 [facility] allergy allergy 3-0 No .4mL Common extract extract 5- [facility] 00:00: - [facility] 00 [facility] allergy allergy 3-0 No .4mL Common extract extract 5[facility]19 [facility] 00:00: - [facility] 00 [facility] allergy allergy 3-0 No .4mL Common extract extract [facility] 00:00: - [facility] 00 [facility] allergy allergy 3-0 No .4mL Common extract extract 5[facility] 00:00: - [facility] 00 [facility] allergy allergy 3-0 No .4mL Common extract extract [facility] 00:00: - [facility] 00 [facility] allergy allergy 3-0 No .4mL Common extract extract [facility] 00:00: - [facility] 00 [facility] allergy allergy 3-0 No .4mL Common extract extract [facility] 00:00: - [facility] 00 [facility] allergy allergy 3-0 No .4mL Common extract extract [facility] 00:00: - [facility] 00 [facility] allergy allergy 3-0 No .4mL Common extract extract [facility] 00:00: - [facility] 00 [facility] allergy allergy 3-0 No .4mL Common extract extract [facility] 00:00: - [facility] 00 [facility] allergy allergy 3-0 No .4mL Common extract extract [facility] 00:00: - [facility] 00 [facility] allergy allergy 3-0 No .4mL Common extract extract [facility] 00:00: - [facility] 00 [facility] allergy allergy 3-0 No .4mL Common extract extract [facility] 00:00: - [facility] 00 [facility] allergy allergy 3-0 No .4mL Common extract extract 5[facility] 00:00: - [facility] 00 [facility] allergy allergy 3-0 No .4mL Common extract extract 5[facility] 00:00: - [facility] 00 [facility] allergy allergy 2023-0 No .4mL Common extract extract 5[facility] 00:00: - [facility] 00 [facility] allergy allergy 3-0 No .4mL Common extract extract 5[facility] 00:00: - [facility] 00 [facility] allergy allergy 3-0 No .4mL Common extract extract [facility] 00:00: - [facility] 00 [facility] allergy allergy 3-0 No .4mL Common extract extract 5[facility]19 [facility] 00:00: - [facility] 00 [facility] allergy allergy 3-0 No .4mL Common extract extract [facility] 00:00: - [facility] 00 [facility] allergy allergy 3-0 No .4mL Common extract extract [facility] 00:00: - [facility] 00 [facility] allergy allergy 3-0 No .4mL Common extract extract [facility] 00:00: - [facility] 00 [facility] allergy allergy 3-0 No .4mL Common extract extract 5- [facility] 00:00: - [facility]I 00 [facility] allergy allergy 3-0 No .4mL Common extract extract 5- [facility] 00:00: - [facility]I 00 [facility] allergy allergy 3-0 No .4mL Common extract extract 5- [facility] 00:00: - [facility]I 00 [facility] allergy allergy 3-0 No .4mL Common extract extract 5- [facility] 00:00: - [facility]I 00 [facility] allergy allergy 3-0 No .4mL Common extract extract 5- [facility] 00:00: - [facility]I 00 [facility] allergy allergy 3-0 No .4mL Common extract extract 5- [facility] 00:00: - [facility]I 00 [facility] allergy allergy 2023-0 No .4mL Common extract extract 5- [facility] 00:00: - [facility]I 00 [facility] allergy allergy 2023-0 No .4mL Common extract extract 5-19 [facility] 00:00: - [facility]I 00 [facility] allergy allergy 2023-0 No .4mL Common extract extract 5-19 [facility] 00:00: - [facility]I 00 [facility] allergy allergy 2023-0 No .4mL Common extract extract 5-19 [facility] 00:00: - [facility] 00 [facility] allergy allergy 3-0 No .4mL Common extract extract 5-19 [facility] 00:00: - [facility]I 00 [facility] allergy allergy 2023-0 No .4mL Common extract extract 5-19 [facility] 00:00: - [facility]I 00 [facility] allergy allergy 3-0 No .4mL Common extract extract 5-19 [facility] 00:00: - [facility]I 00 [facility] allergy allergy 3-0 No .4mL Common extract extract 5-19 [facility] 00:00: - [facility]I 00 [facility] allergy allergy 3-0 No .4mL Common extract extract 5- [facility] 00:00: - [facility]I 00 [facility] allergy allergy 3-0 No .4mL Common extract extract 5- [facility] 00:00: - [facility]I 00 [facility] allergy allergy 3-0 No .4mL Common extract extract 5- [facility] 00:00: - [facility]I 00 [facility] allergy allergy 3-0 No .4mL Common extract extract 5- [facility] 00:00: - [facility]I 00 [facility] allergy allergy 3-0 No .4mL Common extract extract 5- [facility] 00:00: - [facility]I 00 [facility] allergy allergy 3-0 No .4mL Common extract extract 5- [facility] 00:00: - [facility]I 00 [facility] allergy allergy 3-0 No .4mL Common extract extract 5- [facility] 00:00: - [facility]I 00 [facility] allergy allergy 3-0 No .4mL Common extract extract 5- [facility] 00:00: - [facility]I 00 [facility] allergy allergy 3-0 No .4mL Common extract extract 5-19 [facility] 00:00: - [facility]I 00 [facility] allergy allergy 2023-0 No .4mL Common extract extract 5-19 [facility] 00:00: - [facility]I 00 [facility] allergy allergy 2023-0 No .4mL Common extract extract 5-19 [facility] 00:00: - [facility] 00 [facility] allergy allergy 2023-0 No .4mL Common extract extract 5-19 [facility] 00:00: - [facility]I 00 [facility] allergy allergy 2023-0 No .4mL Common extract extract 5-19 [facility] 00:00: - [facility]I 00 [facility] allergy allergy 3-0 No .4mL Common extract extract 5-19 [facility] 00:00: - [facility]I 00 [facility] allergy allergy 2023-0 No .4mL Common extract extract 5-19 [facility] 00:00: - [facility] 00 [facility] allergy allergy 3-0 No .4mL Common extract extract 5-19 [facility] 00:00: - [facility]I 00 [facility] allergy allergy 3-0 No .35mL Common extract extract 5-12 [facility] 00:00: - [facility] 00 [facility] allergy allergy 3-0 No .35mL Common extract extract 5-12 [facility] 00:00: - [facility] 00 [facility] allergy allergy 3-0 No .35mL Common extract extract 5-12 [facility] 00:00: - [facility] 00 [facility] allergy allergy 3-0 No .35mL Common extract extract 5-12 [facility] 00:00: - [facility]I 00 [facility] allergy allergy 3-0 No .35mL Common extract extract 5-12 [facility] 00:00: - CHI [facility] allergy allergy 3-0 No .35mL Common extract extract 5-12 [facility] 00:00: - CHI [facility] allergy allergy 3-0 No .35mL Common extract extract 5-12 [facility] 00:00: - [facility]I 00 [facility] allergy allergy 3-0 No .35mL Common extract extract 5-12 [facility] 00:00: - [facility] 00 [facility] allergy allergy 3-0 No .35mL Common extract extract 5-12 [facility] 00:00: - CHI [facility] allergy allergy 2023-0 No .35mL Common extract extract 5-12 [facility] 00:00: - [facility]I 00 [facility] allergy allergy 2023-0 No .35mL Common extract extract 5-12 [facility] 00:00: - [facility]I 00 [facility] allergy allergy 2023-0 No .35mL Common extract extract 5-12 [facility] 00:00: - [facility] 00 [facility] allergy allergy 2023-0 No .35mL Common extract extract 5-12 [facility] 00:00: - [facility] 00 [facility] allergy allergy 2023-0 No .35mL Common extract extract 5-12 [facility] 00:00: - [facility]I 00 [facility] allergy allergy 2023-0 No .35mL Common extract extract 5-12 [facility] 00:00: - [facility]I 00 [facility] allergy allergy 2023-0 No .35mL Common extract extract 5-12 [facility] 00:00: - [facility] 00 [facility] allergy allergy 3-0 No .35mL Common extract extract 5-12 [facility] 00:00: - [facility]I 00 [facility] allergy allergy 3-0 No .35mL Common extract extract 5-12 [facility] 00:00: - [facility]I 00 [facility] allergy allergy 3-0 No .35mL Common extract extract 5-12 [facility] 00:00: - [facility]I 00 [facility] allergy allergy 3-0 No .35mL Common extract extract 5-12 [facility] 00:00: - [facility] 00 [facility] allergy allergy 3-0 No .35mL Common extract extract 5-12 [facility] 00:00: - [facility] 00 [facility] allergy allergy 3-0 No .35mL Common extract extract 5-12 [facility] 00:00: - CHI [facility] allergy allergy 3-0 No .35mL Common extract extract 5-12 [facility] 00:00: - CHI [facility] allergy allergy 3-0 No .35mL Common extract extract 5-12 [facility] 00:00: - CHI [facility] allergy allergy 3-0 No .35mL Common extract extract 5-12 [facility] 00:00: - [facility] 00 [facility] allergy allergy 3-0 No .35mL Common extract extract 5-12 [facility] 00:00: - CHI [facility] allergy allergy 3-0 No .35mL Common extract extract 5-12 [facility] 00:00: - CHI [facility] allergy allergy 3-0 No .35mL Common extract extract 5-12 [facility] 00:00: - [facility] 00 [facility] allergy allergy 3-0 No .35mL Common extract extract 5-12 [facility] 00:00: - [facility] 00 [facility] allergy allergy 3-0 No .35mL Common extract extract 5-12 [facility] 00:00: - [facility] 00 [facility] allergy allergy 3-0 No .35mL Common extract extract 5-12 [facility] 00:00: - [facility] 00 [facility] allergy allergy 3-0 No .35mL Common extract extract 5-12 [facility] 00:00: - [facility]I 00 [facility] allergy allergy 2023-0 No .35mL Common extract extract 5-12 [facility] 00:00: - [facility] 00 [facility] allergy allergy 3-0 No .35mL Common extract extract 5-12 [facility] 00:00: - [facility] 00 [facility] allergy allergy 3-0 No .35mL Common extract extract 5-12 [facility] 00:00: - [facility]I 00 [facility] allergy allergy 3-0 No .35mL Common extract extract 5-12 [facility] 00:00: - [facility]I 00 [facility] allergy allergy 3-0 No .35mL Common extract extract 5-12 [facility] 00:00: - [facility]I 00 [facility] allergy allergy 3-0 No .35mL Common extract extract 5-12 [facility] 00:00: - [facility] 00 [facility] allergy allergy 3-0 No .35mL Common extract extract 5-12 [facility] 00:00: - [facility] 00 [facility] allergy allergy 3-0 No .35mL Common extract extract 5-12 [facility] 00:00: - CHI [facility] allergy allergy 3-0 No .35mL Common extract extract 5-12 [facility] 00:00: - [facility] 00 [facility] allergy allergy 3-0 No .35mL Common extract extract 5-12 [facility] 00:00: - CHI [facility] allergy allergy 3-0 No .35mL Common extract extract 5-12 [facility] 00:00: - [facility] 00 [facility] allergy allergy 3-0 No .35mL Common extract extract 5-12 [facility] 00:00: - [facility] 00 [facility] allergy allergy 2023-0 No .35mL Common extract extract 5-12 [facility] 00:00: - [facility] 00 [facility] allergy allergy 2023-0 No .35mL Common extract extract 5-12 [facility] 00:00: - [facility] 00 [facility] allergy allergy 2023-0 No .35mL Common extract extract 5-12 [facility] 00:00: - [facility] 00 [facility] allergy allergy 2023-0 No .35mL Common extract extract 5-12 [facility] 00:00: - [facility] 00 [facility] allergy allergy 2023-0 No .35mL Common extract extract 5-12 [facility] 00:00: - [facility] 00 [facility] allergy allergy 2023-0 No .35mL Common extract extract 5-12 [facility] 00:00: - [facility] 00 [facility] allergy allergy 2023-0 No .35mL Common extract extract 5-12 [facility] 00:00: - [facility] 00 [facility] allergy allergy 3-0 No .35mL Common extract extract 5-12 [facility] 00:00: - [facility] 00 [facility] allergy allergy 3-0 No .35mL Common extract extract 5-12 [facility] 00:00: - [facility] 00 [facility] allergy allergy 3-0 No .35mL Common extract extract 5-12 [facility] 00:00: - [facility] 00 [facility] allergy allergy 3-0 No .35mL Common extract extract 5-12 [facility] 00:00: - [facility] 00 [facility] allergy allergy 3-0 No .35mL Common extract extract 5-12 [facility] 00:00: - [facility] 00 [facility] allergy allergy 3-0 No .35mL Common extract extract 5-12 [facility] 00:00: - [facility] 00 [facility] allergy allergy 3-0 No .35mL Common extract extract 5-12 [facility] 00:00: - [facility] 00 [facility] allergy allergy 3-0 No .35mL Common extract extract 5-12 [facility] 00:00: - [facility] 00 [facility] allergy allergy 3-0 No .35mL Common extract extract 5-12 [facility] 00:00: - [facility] 00 [facility] allergy allergy 3-0 No .35mL Common extract extract 5-12 [facility] 00:00: - [facility] 00 [facility] allergy allergy 3-0 No .35mL Common extract extract 5-12 [facility] 00:00: - [facility]I 00 [facility] allergy allergy 2023-0 No .35mL Common extract extract 5-12 [facility] 00:00: - [facility] 00 [facility] allergy allergy 3-0 No .35mL Common extract extract 5-12 [facility] 00:00: - [facility] 00 [facility] allergy allergy 3-0 No .35mL Common extract extract 5-12 [facility] 00:00: - [facility] 00 [facility] allergy allergy 2023-0 No .35mL Common extract extract 5-12 [facility] 00:00: - [facility] 00 [facility] allergy allergy 2023-0 No .35mL Common extract extract 5-12 [facility] 00:00: - [facility]I 00 [facility] allergy allergy 2023-0 No .35mL Common extract extract 5-12 [facility] 00:00: - [facility]I 00 [facility] allergy allergy 2023-0 No .35mL Common extract extract 5-12 [facility] 00:00: - [facility]I 00 [facility] allergy allergy 2023-0 No .35mL Common extract extract 5-12 [facility] 00:00: - [facility]I 00 [facility] allergy allergy 3-0 No .35mL Common extract extract 5-12 [facility] 00:00: - [facility]I 00 [facility] allergy allergy 2023-0 No .35mL Common extract extract 5-12 [facility] 00:00: - [facility]I 00 [facility] allergy allergy 3-0 No .3mL Common extract extract [facility]- [facility] 00:00: - [facility] 00 [facility] allergy allergy 3-0 No .3mL Common extract extract 5- [facility] 00:00: - CHI [facility] allergy allergy 3-0 No .3mL Common extract extract 5- [facility] 00:00: - CHI [facility] allergy allergy 2023-0 No .3mL Common extract extract 5- [facility] 00:00: - [facility]I 00 [facility] allergy allergy 3-0 No .3mL Common extract extract 5- [facility] 00:00: - [facility]I 00 [facility] allergy allergy 2023-0 No .3mL Common extract extract 5- [facility] 00:00: - [facility]I 00 [facility] allergy allergy 2023-0 No .3mL Common extract extract 5- [facility] 00:00: - [facility]I 00 [facility] allergy allergy 2023-0 No .3mL Common extract extract 5- [facility] 00:00: - [facility]I 00 [facility] allergy allergy 2023-0 No .3mL Common extract extract 5- [facility] 00:00: - [facility]I 00 [facility] allergy allergy 2023-0 No .3mL Common extract extract 5- [facility] 00:00: - [facility]I 00 [facility] allergy allergy 2023-0 No .3mL Common extract extract 5- [facility] 00:00: - [facility]I 00 [facility] allergy allergy 2023-0 No .3mL Common extract extract 5- [facility] 00:00: - [facility]I 00 [facility] allergy allergy 2023-0 No .3mL Common extract extract 5- [facility] 00:00: - [facility]I 00 [facility] allergy allergy 2023-0 No .3mL Common extract extract 5- [facility] 00:00: - [facility]I 00 [facility] allergy allergy 2023-0 No .3mL Common extract extract 5- [facility] 00:00: - [facility]I 00 [facility] allergy allergy 2023-0 No .3mL Common extract extract 5- [facility] 00:00: - [facility]I 00 [facility] allergy allergy 2023-0 No .3mL Common extract extract 5- [facility] 00:00: - [facility]I 00 [facility] allergy allergy 3-0 No .3mL Common extract extract 5- [facility] 00:00: - [facility]I 00 [facility] allergy allergy 3-0 No .3mL Common extract extract - [facility] 00:00: - [facility]I 00 [facility] allergy allergy 2023-0 No .3mL Common extract extract 5- [facility] 00:00: - [facility]I 00 [facility] allergy allergy 2023-0 No .3mL Common extract extract - [facility] 00:00: - [facility] 00 [facility] allergy allergy 3-0 No .3mL Common extract extract 5- [facility] 00:00: - [facility]I 00 [facility] allergy allergy 3-0 No .3mL Common extract extract - [facility] 00:00: - [facility]I 00 [facility] allergy allergy 2023-0 No .3mL Common extract extract 5- [facility] 00:00: - [facility]I 00 [facility] allergy allergy 2023-0 No .3mL Common extract extract 5- [facility] 00:00: - [facility]I 00 [facility] allergy allergy 2023-0 No .3mL Common extract extract 5- [facility] 00:00: - [facility]I 00 [facility] allergy allergy 2023-0 No .3mL Common extract extract 5- [facility] 00:00: - [facility]I 00 [facility] allergy allergy 2023-0 No .3mL Common extract extract 5- [facility] 00:00: - [facility]I 00 [facility] allergy allergy 2023-0 No .3mL Common extract extract 5- [facility] 00:00: - [facility]I 00 [facility] allergy allergy 2023-0 No .3mL Common extract extract 5- [facility] 00:00: - [facility]I 00 [facility] allergy allergy 2023-0 No .3mL Common extract extract 5- [facility] 00:00: - [facility]I 00 [facility] allergy allergy 2023-0 No .3mL Common extract extract 5- [facility] 00:00: - [facility]I 00 [facility] allergy allergy 2023-0 No .3mL Common extract extract 5- [facility] 00:00: - [facility]I 00 [facility] allergy allergy 2023-0 No .3mL Common extract extract - [facility] 00:00: - [facility]I 00 [facility] allergy allergy 2023-0 No .3mL Common extract extract 09-02 [facility] 00:00: - [facility] 00 [facility] allergy allergy 2023-0 No .3mL Common extract extract 09-02 [facility] 00:00: - [facility]I 00 [facility] allergy allergy 2023-0 No .3mL Common extract extract - [facility] 00:00: - [facility]I 00 [facility] allergy allergy 2023-0 No .3mL Common extract extract 09-02 [facility] 00:00: - [facility]I 00 [facility] allergy allergy 2023-0 No .3mL Common extract extract 09-02 [facility] 00:00: - [facility]I 00 [facility] allergy allergy 2023-0 No .3mL Common extract extract 09-02 [facility] 00:00: - [facility]I 00 [facility] allergy allergy 2023-0 No .3mL Common extract extract 09-02 [facility] 00:00: - [facility]I 00 [facility] allergy allergy 2023-0 No .3mL Common extract extract - [facility] 00:00: - [facility]I 00 [facility] allergy allergy 2023-0 No .3mL Common extract extract - [facility] 00:00: - [facility]I 00 [facility] allergy allergy 2023-0 No .3mL Common extract extract 5- [facility] 00:00: - [facility]I 00 [facility] allergy allergy 2023-0 No .3mL Common extract extract - [facility] 00:00: - [facility]I 00 [facility] allergy allergy 2023-0 No .3mL Common extract extract - [facility] 00:00: - [facility]I 00 [facility] allergy allergy 2023-0 No .3mL Common extract extract - [facility] 00:00: - [facility]I 00 [facility] allergy allergy 2023-0 No .3mL Common extract extract 5- [facility] 00:00: - [facility]I 00 [facility] allergy allergy 2023-0 No .3mL Common extract extract - [facility] 00:00: - [facility]I 00 [facility] allergy allergy 2023-0 No .3mL Common extract extract - [facility] 00:00: - [facility]I 00 [facility] allergy allergy 2023-0 No .3mL Common extract extract - [facility] 00:00: - [facility]I 00 [facility] allergy allergy 2023-0 No .3mL Common extract extract 09-02 [facility] 00:00: - [facility] 00 [facility] allergy allergy 2023-0 No .3mL Common extract extract 09-02 [facility] 00:00: - [facility] 00 [facility] allergy allergy 2023-0 No .3mL Common extract extract 09-02 [facility] 00:00: - [facility]I 00 [facility] allergy allergy 2023-0 No .3mL Common extract extract 09-02 [facility] 00:00: - [facility]I 00 [facility] allergy allergy 2023-0 No .3mL Common extract extract 09-02 [facility] 00:00: - [facility]I 00 [facility] allergy allergy 2023-0 No .3mL Common extract extract 09-02 [facility] 00:00: - [facility]I 00 [facility] allergy allergy 2023-0 No .3mL Common extract extract 09-02 [facility] 00:00: - [facility]I 00 [facility] allergy allergy 2023-0 No .3mL Common extract extract - [facility] 00:00: - [facility]I 00 [facility] allergy allergy 2023-0 No .3mL Common extract extract - [facility] 00:00: - [facility]I 00 [facility] allergy allergy 2023-0 No .3mL Common extract extract 09-02 [facility] 00:00: - [facility] 00 [facility] allergy allergy 2023-0 No .3mL Common extract extract - [facility] 00:00: - [facility]I 00 [facility] allergy allergy 2023-0 No .3mL Common extract extract - [facility] 00:00: - [facility] 00 [facility] allergy allergy 2023-0 No .3mL Common extract extract 5- [facility] 00:00: - [facility]I 00 [facility] allergy allergy 2023-0 No .3mL Common extract extract 5- [facility] 00:00: - [facility]I 00 [facility] allergy allergy 2023-0 No .3mL Common extract extract 5- [facility] 00:00: - [facility] 00 [facility] allergy allergy 2023-0 No .3mL Common extract extract 5- [facility] 00:00: - [facility]I 00 [facility] allergy allergy 2023-0 No .3mL Common extract extract 5- [facility] 00:00: - [facility]I 00 [facility] allergy allergy 2023-0 No .3mL Common extract extract 5 [facility] 00:00: - [facility] 00 [facility] allergy allergy 2023-0 No .3mL Common extract extract 5 [facility] 00:00: - [facility] 00 [facility] allergy allergy 2023-0 No .3mL Common extract extract 5 [facility] 00:00: - [facility] 00 [facility] allergy allergy 2023-0 No .3mL Common extract extract 5- [facility] 00:00: - [facility]I 00 [facility] allergy allergy 2023-0 No .2mL Common extract extract 08-28 [facility] 00:00: - [facility] 00 [facility] allergy allergy 2023-0 No .2mL Common extract extract - [facility] 00:00: - [facility]I 00 [facility] allergy allergy 2023-0 No .2mL Common extract extract 08-28 [facility] 00:00: - [facility]I 00 [facility] allergy allergy 2023-0 No .2mL Common extract extract 4-28 [facility] 00:00: - [facility] 00 [facility] allergy allergy 2023-0 No .2mL Common extract extract 4- [facility] 00:00: - [facility]I 00 [facility] allergy allergy 2023-0 No .2mL Common extract extract 4- [facility] 00:00: - [facility]I 00 [facility] allergy allergy 2023-0 No .2mL Common extract extract 4- [facility] 00:00: - [facility]I 00 [facility] allergy allergy 2023-0 No .2mL Common extract extract 4- [facility] 00:00: - [facility]I 00 [facility] allergy allergy 2023-0 No .2mL Common extract extract 4- [facility] 00:00: - [facility]I 00 [facility] allergy allergy 2023-0 No .2mL Common extract extract 08-28 [facility] 00:00: - [facility] 00 [facility] allergy allergy 2023-0 No .2mL Common extract extract 08-28 [facility] 00:00: - [facility]I 00 [facility] allergy allergy 2023-0 No .2mL Common extract extract 08-28 [facility] 00:00: - [facility] 00 [facility] allergy allergy 2023-0 No .2mL Common extract extract 08-28 [facility] 00:00: - [facility]I 00 [facility] allergy allergy 2023-0 No .2mL Common extract extract 08-28 [facility] 00:00: - [facility]I 00 [facility] allergy allergy 3-0 No .2mL Common extract extract 08-28 [facility] 00:00: - [facility] 00 [facility] allergy allergy 3-0 No .2mL Common extract extract 08-28 [facility] 00:00: - [facility]I 00 [facility] allergy allergy 2023-0 No .2mL Common extract extract 08-28 [facility] 00:00: - [facility]I 00 [facility] allergy allergy 2023-0 No .2mL Common extract extract 08-28 [facility] 00:00: - [facility] 00 [facility] allergy allergy 3-0 No .2mL Common extract extract 08-28 [facility] 00:00: - [facility] 00 [facility] allergy allergy 2023-0 No .2mL Common extract extract 08-28 [facility] 00:00: - [facility] 00 [facility] allergy allergy 2023-0 No .2mL Common extract extract 08-28 [facility] 00:00: - [facility] 00 [facility] allergy allergy 2023-0 No .2mL Common extract extract 08-28 [facility] 00:00: - [facility]I 00 [facility] allergy allergy 2023-0 No .2mL Common extract extract 08-28 [facility] 00:00: - [facility]I 00 [facility] allergy allergy 2023-0 No .2mL Common extract extract 08-28 [facility] 00:00: - [facility]I 00 [facility] allergy allergy 2023-0 No .2mL Common extract extract 08-28 [facility] 00:00: - [facility] 00 [facility] allergy allergy 2023-0 No .2mL Common extract extract 08-28 [facility] 00:00: - [facility]I 00 [facility] allergy allergy 2023-0 No .2mL Common extract extract 08-28 [facility] 00:00: - [facility] 00 [facility] allergy allergy 2023-0 No .2mL Common extract extract 08-28 [facility] 00:00: - [facility]I 00 [facility] allergy allergy 2023-0 No .2mL Common extract extract 08-28 [facility] 00:00: - [facility] 00 [facility] allergy allergy 2023-0 No .2mL Common extract extract 08-28 [facility] 00:00: - [facility] 00 [facility] allergy allergy 2023-0 No .2mL Common extract extract 08-28 [facility] 00:00: - [facility] 00 [facility] allergy allergy 2023-0 No .2mL Common extract extract 08-28 [facility] 00:00: - [facility] 00 [facility] allergy allergy 3-0 No .2mL Common extract extract 08-28 [facility] 00:00: - [facility] 00 [facility] allergy allergy 2023-0 No .2mL Common extract extract 08-28 [facility] 00:00: - [facility] 00 [facility] allergy allergy 2023-0 No .2mL Common extract extract 08-28 [facility] 00:00: - [facility] 00 [facility] allergy allergy 2023-0 No .2mL Common extract extract 08-28 [facility] 00:00: - [facility] 00 [facility] allergy allergy 2023-0 No .2mL Common extract extract 08-28 [facility] 00:00: - [facility] 00 [facility] allergy allergy 2023-0 No .2mL Common extract extract 08-28 [facility] 00:00: - [facility] 00 [facility] allergy allergy 2023-0 No .2mL Common extract extract 08-28 [facility] 00:00: - [facility] 00 [facility] allergy allergy 2023-0 No .2mL Common extract extract 08-28 [facility] 00:00: - [facility] 00 [facility] allergy allergy 2023-0 No .2mL Common extract extract 08-28 [facility] 00:00: - [facility] 00 [facility] allergy allergy 2023-0 No .2mL Common extract extract 08-28 [facility] 00:00: - [facility] 00 [facility] allergy allergy 2023-0 No .2mL Common extract extract 08-28 [facility] 00:00: - [facility] 00 [facility] allergy allergy 2023-0 No .2mL Common extract extract 08-28 [facility] 00:00: - [facility] 00 [facility] allergy allergy 2023-0 No .2mL Common extract extract 08-28 [facility] 00:00: - [facility] 00 [facility] allergy allergy 2023-0 No .2mL Common extract extract 08-28 [facility] 00:00: - [facility] 00 [facility] allergy allergy 2023-0 No .2mL Common extract extract 08-28 [facility] 00:00: - [facility] 00 [facility] allergy allergy 2023-0 No .2mL Common extract extract 08-28 [facility] 00:00: - [facility] 00 [facility] allergy allergy 2023-0 No .2mL Common extract extract 08-28 [facility] 00:00: - [facility] 00 [facility] allergy allergy 3-0 No .2mL Common extract extract 08-28 [facility] 00:00: - [facility] 00 [facility] allergy allergy 2023-0 No .2mL Common extract extract 08-28 [facility] 00:00: - [facility] 00 [facility] allergy allergy 2023-0 No .2mL Common extract extract 08-28 [facility] 00:00: - [facility] 00 [facility] allergy allergy 2023-0 No .2mL Common extract extract 08-28 [facility] 00:00: - [facility] 00 [facility] allergy allergy 2023-0 No .2mL Common extract extract 08-28 [facility] 00:00: - [facility] 00 [facility] allergy allergy 2023-0 No .2mL Common extract extract 08-28 [facility] 00:00: - [facility] 00 [facility] allergy allergy 2023-0 No .2mL Common extract extract 08-28 [facility] 00:00: - [facility] 00 [facility] allergy allergy 2023-0 No .2mL Common extract extract 08-28 [facility] 00:00: - [facility] 00 [facility] allergy allergy 2023-0 No .2mL Common extract extract 08-28 [facility] 00:00: - [facility] 00 [facility] allergy allergy 2023-0 No .2mL Common extract extract 08-28 [facility] 00:00: - [facility] 00 [facility] allergy allergy 2023-0 No .2mL Common extract extract 08-28 [facility] 00:00: - [facility] 00 [facility] allergy allergy 2023-0 No .2mL Common extract extract 08-28 [facility] 00:00: - [facility] 00 [facility] allergy allergy 2023-0 No .2mL Common extract extract 08-28 [facility] 00:00: - [facility] 00 [facility] allergy allergy 2023-0 No .2mL Common extract extract 08-28 [facility] 00:00: - [facility] 00 [facility] allergy allergy 2023-0 No .2mL Common extract extract 08-28 [facility] 00:00: - [facility] 00 [facility] allergy allergy 2023-0 No .2mL Common extract extract 08-28 [facility] 00:00: - [facility] 00 [facility] allergy allergy 2023-0 No .2mL Common extract extract 08-28 [facility] 00:00: - [facility] 00 [facility] allergy allergy 2023-0 No .2mL Common extract extract 08-28 [facility] 00:00: - [facility] 00 [facility] allergy allergy 2023-0 No .2mL Common extract extract 08-28 [facility] 00:00: - [facility] 00 [facility] allergy allergy 2023-0 No .2mL Common extract extract 08-28 [facility] 00:00: - [facility] 00 [facility] allergy allergy 2023-0 No .2mL Common extract extract 08-28 [facility] 00:00: - [facility] 00 [facility] allergy allergy 2023-0 No .2mL Common extract extract 08-28 [facility] 00:00: - [facility] 00 [facility] allergy allergy 2023-0 No .2mL Common extract extract 08-28 [facility] 00:00: - [facility] 00 [facility] allergy allergy 2023-0 No .1mL Common extract extract 08-21 [facility] 00:00: - [facility] 00 [facility] allergy allergy 2023-0 No .1mL Common extract extract 08-21 [facility] 00:00: - [facility] 00 [facility] allergy allergy 2023-0 No .1mL Common extract extract 08-21 [facility] 00:00: - [facility] 00 [facility] allergy allergy 2023-0 No .1mL Common extract extract 08-21 [facility] 00:00: - [facility] 00 [facility] allergy allergy 2023-0 No .1mL Common extract extract 08-21 [facility] 00:00: - [facility] 00 [facility] allergy allergy 2023-0 No .1mL Common extract extract 08-21 [facility] 00:00: - [facility] 00 [facility] allergy allergy 2023-0 No .1mL Common extract extract 08-21 [facility] 00:00: - [facility] 00 [facility] allergy allergy 2023-0 No .1mL Common extract extract 08-21 [facility] 00:00: - [facility] 00 [facility] allergy allergy 2023-0 No .1mL Common extract extract 08-21 [facility] 00:00: - [facility] 00 [facility] allergy allergy 3-0 No .1mL Common extract extract 08-21 [facility] 00:00: - [facility] 00 [facility] allergy allergy 2023-0 No .1mL Common extract extract 08-21 [facility] 00:00: - [facility] 00 [facility] allergy allergy 3-0 No .1mL Common extract extract 08-21 [facility] 00:00: - [facility] 00 [facility] allergy allergy 3-0 No .1mL Common extract extract 08-21 [facility] 00:00: - [facility] 00 [facility] allergy allergy 3-0 No .1mL Common extract extract 08-21 [facility] 00:00: - [facility] 00 [facility] allergy allergy 2023-0 No .1mL Common extract extract 08-21 [facility] 00:00: - [facility] 00 [facility] allergy allergy 3-0 No .1mL Common extract extract 08-21 [facility] 00:00: - [facility] 00 [facility] allergy allergy 2023-0 No .1mL Common extract extract 08-21 [facility] 00:00: - [facility] 00 [facility] allergy allergy 2023-0 No .1mL Common extract extract 08-21 [facility] 00:00: - [facility] 00 [facility] allergy allergy 2023-0 No .1mL Common extract extract 08-21 [facility] 00:00: - [facility] 00 [facility] allergy allergy 2023-0 No .1mL Common extract extract 08-21 [facility] 00:00: - [facility] 00 [facility] allergy allergy 2023-0 No .1mL Common extract extract 08-21 [facility] 00:00: - [facility] 00 [facility] allergy allergy 2023-0 No .1mL Common extract extract 08-21 [facility] 00:00: - [facility] 00 [facility] allergy allergy 2023-0 No .1mL Common extract extract 08-21 [facility] 00:00: - [facility] 00 [facility] allergy allergy 2023-0 No .1mL Common extract extract 08-21 [facility] 00:00: - [facility] 00 [facility] allergy allergy 2023-0 No .1mL Common extract extract 08-21 [facility] 00:00: - [facility] 00 [facility] allergy allergy 2023-0 No .1mL Common extract extract 08-21 [facility] 00:00: - [facility] 00 [facility] allergy allergy 2023-0 No .1mL Common extract extract 08-21 [facility] 00:00: - [facility] 00 [facility] allergy allergy 2023-0 No .1mL Common extract extract 08-21 [facility] 00:00: - [facility] 00 [facility] allergy allergy 3-0 No .1mL Common extract extract 08-21 [facility] 00:00: - [facility] 00 [facility] allergy allergy 3-0 No .1mL Common extract extract 08-21 [facility] 00:00: - [facility] 00 [facility] allergy allergy 3-0 No .1mL Common extract extract 08-21 [facility] 00:00: - [facility] 00 [facility] allergy allergy 3-0 No .1mL Common extract extract 08-21 [facility] 00:00: - [facility] 00 [facility] allergy allergy 3-0 No .1mL Common extract extract 08-21 [facility] 00:00: - [facility] 00 [facility] allergy allergy 3-0 No .1mL Common extract extract 08-21 [facility] 00:00: - [facility] 00 [facility] allergy allergy 2023-0 No .1mL Common extract extract 08-21 [facility] 00:00: - [facility] 00 [facility] allergy allergy 2023-0 No .1mL Common extract extract 08-21 [facility] 00:00: - [facility] 00 [facility] allergy allergy 2023-0 No .1mL Common extract extract 08-21 [facility] 00:00: - [facility] 00 [facility] allergy allergy 2023-0 No .1mL Common extract extract 08-21 [facility] 00:00: - [facility] 00 [facility] allergy allergy 2023-0 No .1mL Common extract extract 08-21 [facility] 00:00: - [facility] 00 [facility] allergy allergy 2023-0 No .1mL Common extract extract 08-21 [facility] 00:00: - [facility] 00 [facility] allergy allergy 2023-0 No .1mL Common extract extract 4-21 [facility] 00:00: - [facility] 00 [facility] allergy allergy 2023-0 No .1mL Common extract extract 08-21 [facility] 00:00: - [facility] 00 [facility] allergy allergy 2023-0 No .1mL Common extract extract 08-21 [facility] 00:00: - [facility] 00 [facility] allergy allergy 2023-0 No .1mL Common extract extract 08-21 [facility] 00:00: - [facility] 00 [facility] allergy allergy 2023-0 No .1mL Common extract extract 08-21 [facility] 00:00: - [facility] 00 [facility] allergy allergy 2023-0 No .1mL Common extract extract 08-21 [facility] 00:00: - [facility] 00 [facility] allergy allergy 2023-0 No .1mL Common extract extract 08-21 [facility] 00:00: - [facility] 00 [facility] allergy allergy 2023-0 No .1mL Common extract extract 08-21 [facility] 00:00: - [facility] 00 [facility] allergy allergy 2023-0 No .1mL Common extract extract 08-21 [facility] 00:00: - [facility] 00 [facility] allergy allergy 2023-0 No .1mL Common extract extract 08-21 [facility] 00:00: - [facility] 00 [facility] allergy allergy 2023-0 No .1mL Common extract extract 08-21 [facility] 00:00: - [facility] 00 [facility] allergy allergy 2023-0 No .1mL Common extract extract 08-21 [facility] 00:00: - [facility] 00 [facility] allergy allergy 2023-0 No .1mL Common extract extract 08-21 [facility] 00:00: - [facility] 00 [facility] allergy allergy 2023-0 No .1mL Common extract extract 08-21 [facility] 00:00: - [facility] 00 [facility] allergy allergy 2023-0 No .1mL Common extract extract 08-21 [facility] 00:00: - [facility] 00 [facility] allergy allergy 2023-0 No .1mL Common extract extract 08-21 [facility] 00:00: - [facility] 00 [facility] allergy allergy 2023-0 No .1mL Common extract extract 08-21 [facility] 00:00: - [facility] 00 [facility] allergy allergy 2023-0 No .1mL Common extract extract 08-21 [facility] 00:00: - [facility] 00 [facility] allergy allergy 2023-0 No .1mL Common extract extract 08-21 [facility] 00:00: - [facility] 00 [facility] allergy allergy 2023-0 No .1mL Common extract extract 08-21 [facility] 00:00: - [facility] 00 [facility] allergy allergy 2023-0 No .1mL Common extract extract 08-21 [facility] 00:00: - [facility] 00 [facility] allergy allergy 2023-0 No .1mL Common extract extract 08-21 [facility] 00:00: - [facility] 00 [facility] allergy allergy 2023-0 No .1mL Common extract extract 08-21 [facility] 00:00: - [facility] 00 [facility] allergy allergy 2023-0 No .1mL Common extract extract 08-21 [facility] 00:00: - [facility] 00 [facility] allergy allergy 2023-0 No .1mL Common extract extract 08-21 [facility] 00:00: - [facility] 00 [facility] allergy allergy 2023-0 No .1mL Common extract extract 08-21 [facility] 00:00: - [facility] 00 [facility] allergy allergy 2023-0 No .1mL Common extract extract 08-21 [facility] 00:00: - [facility] 00 [facility] allergy allergy 2023-0 No .1mL Common extract extract 08-21 [facility] 00:00: - [facility] 00 [facility] allergy allergy 2023-0 No .1mL Common extract extract 08-21 [facility] 00:00: - [facility] 00 [facility] allergy allergy 2023-0 No .1mL Common extract extract 08-21 [facility] 00:00: - [facility] 00 [facility] allergy allergy 2023-0 No .1mL Common extract extract 08-21 [facility] 00:00: - [facility] 00 [facility] allergy allergy 2023-0 No .1mL Common extract extract 08-21 [facility] 00:00: - [facility] 00 [facility] allergy allergy 2023-0 No .05mL Common extract extract 08-14 [facility] 00:00: - [facility] 00 [facility] allergy allergy 2023-0 No .05mL Common extract extract 414 [facility] 00:00: - [facility] 00 [facility] allergy allergy 2023-0 No .05mL Common extract extract 14 [facility] 00:00: - [facility] 00 [facility] allergy allergy 2023-0 No .05mL Common extract extract 4-14 [facility] 00:00: - [facility] 00 [facility] allergy allergy 2023-0 No .05mL Common extract extract 4-14 [facility] 00:00: - [facility] 00 [facility] allergy allergy 2023-0 No .05mL Common extract extract 4-14 [facility] 00:00: - [facility] 00 [facility] allergy allergy 2023-0 No .05mL Common extract extract 4-14 [facility] 00:00: - [facility] 00 [facility] allergy allergy 2023-0 No .05mL Common extract extract 4-14 [facility] 00:00: - [facility] 00 [facility] allergy allergy 3-0 No .05mL Common extract extract 4-14 [facility] 00:00: - [facility] 00 [facility] allergy allergy 3-0 No .05mL Common extract extract 4-14 [facility] 00:00: - [facility] 00 [facility] allergy allergy 3-0 No .05mL Common extract extract 4-14 [facility] 00:00: - [facility] 00 [facility] allergy allergy 2023-0 No .05mL Common extract extract 4-14 [facility] 00:00: - [facility] 00 [facility] allergy allergy 2023-0 No .05mL Common extract extract 4-14 [facility] 00:00: - [facility] 00 [facility] allergy allergy 2023-0 No .05mL Common extract extract 4-14 [facility] 00:00: - [facility] 00 [facility] allergy allergy 2023-0 No .05mL Common extract extract 4-14 [facility] 00:00: - [facility] 00 [facility] allergy allergy 2023-0 No .05mL Common extract extract 4-14 [facility] 00:00: - [facility] 00 [facility] allergy allergy 2023-0 No .05mL Common extract extract 4-14 [facility] 00:00: - [facility] 00 [facility] allergy allergy 2023-0 No .05mL Common extract extract 4-14 [facility] 00:00: - [facility] 00 [facility] allergy allergy 2023-0 No .05mL Common extract extract 4-14 [facility] 00:00: - [facility] 00 [facility] allergy allergy 2023-0 No .05mL Common extract extract 4-14 [facility] 00:00: - [facility] 00 [facility] allergy allergy 2023-0 No .05mL Common extract extract 4-14 [facility] 00:00: - [facility] 00 [facility] allergy allergy 2023-0 No .05mL Common extract extract 4-14 [facility] 00:00: - [facility] 00 [facility] allergy allergy 2023-0 No .05mL Common extract extract 4-14 [facility] 00:00: - [facility] 00 [facility] allergy allergy 2023-0 No .05mL Common extract extract 4-14 [facility] 00:00: - [facility] 00 [facility] allergy allergy 2023-0 No .05mL Common extract extract 4-14 [facility] 00:00: - [facility] 00 [facility] allergy allergy 3-0 No .05mL Common extract extract 4-14 [facility] 00:00: - [facility] 00 [facility] allergy allergy 3-0 No .05mL Common extract extract 4-14 [facility] 00:00: - [facility] 00 [facility] allergy allergy 3-0 No .05mL Common extract extract 4-14 [facility] 00:00: - [facility] 00 [facility] allergy allergy 3-0 No .05mL Common extract extract 4-14 [facility] 00:00: - [facility] 00 [facility] allergy allergy 2023-0 No .05mL Common extract extract 4-14 [facility] 00:00: - [facility] 00 [facility] allergy allergy 2023-0 No .05mL Common extract extract 4-14 [facility] 00:00: - [facility] 00 [facility] allergy allergy 2023-0 No .05mL Common extract extract 4-14 [facility] 00:00: - [facility] 00 [facility] allergy allergy 2023-0 No .05mL Common extract extract 4-14 [facility] 00:00: - [facility] 00 [facility] allergy allergy 2023-0 No .05mL Common extract extract 4-14 [facility] 00:00: - [facility] 00 [facility] allergy allergy 2023-0 No .05mL Common extract extract 4-14 [facility] 00:00: - [facility] 00 [facility] allergy allergy 2023-0 No .05mL Common extract extract 4-14 [facility] 00:00: - [facility] 00 [facility] allergy allergy 2023-0 No .05mL Common extract extract 4-14 [facility] 00:00: - [facility] 00 [facility] allergy allergy 2023-0 No .05mL Common extract extract 4-14 [facility] 00:00: - [facility] 00 [facility] allergy allergy 2023-0 No .05mL Common extract extract 4-14 [facility] 00:00: - [facility] 00 [facility] allergy allergy 2023-0 No .05mL Common extract extract 4-14 [facility] 00:00: - [facility] 00 [facility] allergy allergy 2023-0 No .05mL Common extract extract 4-14 [facility] 00:00: - [facility] 00 [facility] allergy allergy 2023-0 No .05mL Common extract extract 4-14 [facility] 00:00: - [facility] 00 [facility] allergy allergy 2023-0 No .05mL Common extract extract 4-14 [facility] 00:00: - [facility] 00 [facility] allergy allergy 2023-0 No .05mL Common extract extract 4-14 [facility] 00:00: - [facility] 00 [facility] allergy allergy 2023-0 No .05mL Common extract extract 4-14 [facility] 00:00: - [facility] 00 [facility] allergy allergy 2023-0 No .05mL Common extract extract 4-14 [facility] 00:00: - [facility] 00 [facility] allergy allergy 2023-0 No .05mL Common extract extract 4-14 [facility] 00:00: - [facility] 00 [facility] allergy allergy 2023-0 No .05mL Common extract extract 4-14 [facility] 00:00: - [facility] 00 [facility] allergy allergy 2023-0 No .05mL Common extract extract 4-14 [facility] 00:00: - [facility] 00 [facility] allergy allergy 2023-0 No .05mL Common extract extract 4-14 [facility] 00:00: - [facility] 00 [facility] allergy allergy 2023-0 No .05mL Common extract extract 4-14 [facility] 00:00: - [facility] 00 [facility] allergy allergy 2023-0 No .05mL Common extract extract 4-14 [facility] 00:00: - [facility] 00 [facility] allergy allergy 2023-0 No .05mL Common extract extract 4-14 [facility] 00:00: - [facility] 00 [facility] allergy allergy 2023-0 No .05mL Common extract extract 4-14 [facility] 00:00: - [facility] 00 [facility] allergy allergy 2023-0 No .05mL Common extract extract 4-14 [facility] 00:00: - [facility] 00 [facility] allergy allergy 2023-0 No .05mL Common extract extract 4-14 [facility] 00:00: - [facility] 00 [facility] allergy allergy 2023-0 No .05mL Common extract extract 4-14 [facility] 00:00: - [facility] 00 [facility] allergy allergy 2023-0 No .05mL Common extract extract 4-14 [facility] 00:00: - [facility] 00 [facility] allergy allergy 2023-0 No .05mL Common extract extract 4-14 [facility] 00:00: - [facility] 00 [facility] allergy allergy 2023-0 No .05mL Common extract extract 4-14 [facility] 00:00: - [facility] 00 [facility] allergy allergy 2023-0 No .05mL Common extract extract 4-14 [facility] 00:00: - [facility] 00 [facility] allergy allergy 2023-0 No .05mL Common extract extract 4-14 [facility] 00:00: - [facility] 00 [facility] allergy allergy 2023-0 No .05mL Common extract extract 4-14 [facility] 00:00: - [facility] 00 [facility] allergy allergy 2023-0 No .05mL Common extract extract 4-14 [facility] 00:00: - [facility] 00 [facility] allergy allergy 2023-0 No .05mL Common extract extract 4-14 [facility] 00:00: - [facility] 00 [facility] allergy allergy 2023-0 No .05mL Common extract extract 4-14 [facility] 00:00: - [facility] 00 [facility] allergy allergy 2023-0 No .05mL Common extract extract 4-14 [facility] 00:00: - [facility] 00 [facility] allergy allergy 2023-0 No .05mL Common extract extract 4-14 [facility] 00:00: - [facility] 00 [facility] allergy allergy 2023-0 No .05mL Common extract extract 4-14 [facility] 00:00: - [facility] 00 [facility] allergy allergy 2023-0 No .05mL Common extract extract 4-14 [facility] 00:00: - [facility] 00 [facility] allergy allergy 2023-0 No .05mL Common extract extract 4-14 [facility] 00:00: - [facility] 00 [facility] allergy allergy 2023-0 No .05mL Common extract extract 4-14 [facility] 00:00: - [facility] 00 [facility] allergy allergy 2023-0 No .5mL Common extract extract 4 [facility] 00:00: - [facility] 00 [facility] allergy allergy 2023-0 No .5mL Common extract extract 4 [facility] 00:00: - [facility] 00 [facility] allergy allergy 2023-0 No .5mL Common extract extract 4 [facility] 00:00: - [facility] 00 [facility] allergy allergy 2023-0 No .5mL Common extract extract 4 [facility] 00:00: - [facility] 00 [facility] allergy allergy 2023-0 No .5mL Common extract extract 4 [facility] 00:00: - [facility] 00 [facility] allergy allergy 2023-0 No .5mL Common extract extract 4 [facility] 00:00: - [facility] 00 [facility] allergy allergy 2023-0 No .5mL Common extract extract 4 [facility] 00:00: - [facility] 00 [facility] allergy allergy 2023-0 No .5mL Common extract extract 4 [facility] 00:00: - [facility] 00 [facility] allergy allergy 2023-0 No .5mL Common extract extract 4 [facility] 00:00: - [facility] 00 [facility] allergy allergy 2023-0 No .5mL Common extract extract 4 [facility] 00:00: - [facility] 00 [facility] allergy allergy 2023-0 No .5mL Common extract extract 4 [facility] 00:00: - [facility] 00 [facility] allergy allergy 2023-0 No .5mL Common extract extract 4 [facility] 00:00: - [facility] 00 [facility] allergy allergy 2023-0 No .5mL Common extract extract 4 [facility] 00:00: - [facility] 00 [facility] allergy allergy 2023-0 No .5mL Common extract extract 4 [facility] 00:00: - [facility] 00 [facility] allergy allergy 2023-0 No .5mL Common extract extract 4 [facility] 00:00: - [facility] 00 [facility] allergy allergy 2023-0 No .5mL Common extract extract 4 [facility] 00:00: - [facility] 00 [facility] allergy allergy 2023-0 No .5mL Common extract extract 4 [facility] 00:00: - [facility] 00 [facility] allergy allergy 2023-0 No .5mL Common extract extract 4 [facility] 00:00: - [facility] 00 [facility] allergy allergy 2023-0 No .5mL Common extract extract 4 [facility] 00:00: - [facility] 00 [facility] allergy allergy 2023-0 No .5mL Common extract extract 4 [facility] 00:00: - [facility] 00 [facility] allergy allergy 2023-0 No .5mL Common extract extract 4 [facility] 00:00: - [facility] 00 [facility] allergy allergy 2023-0 No .5mL Common extract extract 4 [facility] 00:00: - [facility] 00 [facility] allergy allergy 3-0 No .5mL Common extract extract 4 [facility] 00:00: - [facility] 00 [facility] allergy allergy 3-0 No .5mL Common extract extract 4 [facility] 00:00: - [facility] 00 [facility] allergy allergy 2023-0 No .5mL Common extract extract 4 [facility] 00:00: - [facility] 00 [facility] allergy allergy 2023-0 No .5mL Common extract extract 4 [facility] 00:00: - [facility] 00 [facility] allergy allergy 2023-0 No .5mL Common extract extract 4 [facility] 00:00: - [facility] 00 [facility] allergy allergy 2023-0 No .5mL Common extract extract 4 [facility] 00:00: - [facility] 00 [facility] allergy allergy 2023-0 No .5mL Common extract extract 4 [facility] 00:00: - [facility] 00 [facility] allergy allergy 2023-0 No .5mL Common extract extract 4 [facility] 00:00: - [facility] 00 [facility] allergy allergy 2023-0 No .5mL Common extract extract 4 [facility] 00:00: - [facility] 00 [facility] allergy allergy 2023-0 No .5mL Common extract extract 4 [facility] 00:00: - [facility] 00 [facility] allergy allergy 2023-0 No .5mL Common extract extract 4 [facility] 00:00: - [facility] 00 [facility] allergy allergy 2023-0 No .5mL Common extract extract 4 [facility] 00:00: - [facility] 00 [facility] allergy allergy 2023-0 No .5mL Common extract extract 4 [facility] 00:00: - [facility] 00 [facility] allergy allergy 2023-0 No .5mL Common extract extract 4 [facility] 00:00: - [facility] 00 [facility] allergy allergy 2023-0 No .5mL Common extract extract 4 [facility] 00:00: - [facility] 00 [facility] allergy allergy 2023-0 No .5mL Common extract extract 4 [facility] 00:00: - [facility] 00 [facility] allergy allergy 2023-0 No .5mL Common extract extract 4 [facility] 00:00: - [facility] 00 [facility] allergy allergy 2023-0 No .5mL Common extract extract 4 [facility] 00:00: - [facility] 00 [facility] allergy allergy 2023-0 No .5mL Common extract extract 4 [facility] 00:00: - [facility] 00 [facility] allergy allergy 2023-0 No .5mL Common extract extract 4 [facility] 00:00: - [facility] 00 [facility] allergy allergy 2023-0 No .5mL Common extract extract 4 [facility] 00:00: - [facility] 00 [facility] allergy allergy 2023-0 No .5mL Common extract extract 4 [facility] 00:00: - [facility] 00 [facility] allergy allergy 2023-0 No .5mL Common extract extract 4 [facility] 00:00: - [facility] 00 [facility] allergy allergy 2023-0 No .5mL Common extract extract 4 [facility] 00:00: - [facility] 00 [facility] allergy allergy 2023-0 No .5mL Common extract extract 4 [facility] 00:00: - [facility] 00 [facility] allergy allergy 2023-0 No .5mL Common extract extract 4 [facility] 00:00: - [facility] 00 [facility] allergy allergy 2023-0 No .5mL Common extract extract 4 [facility] 00:00: - [facility] 00 [facility] allergy allergy 2023-0 No .5mL Common extract extract 4 [facility] 00:00: - [facility] 00 [facility] allergy allergy 2023-0 No .5mL Common extract extract 4 [facility] 00:00: - [facility] 00 [facility] allergy allergy 2023-0 No .5mL Common extract extract 4 [facility] 00:00: - [facility] 00 [facility] allergy allergy 2023-0 No .5mL Common extract extract 4 [facility] 00:00: - [facility] 00 [facility] allergy allergy 2023-0 No .5mL Common extract extract 4 [facility] 00:00: - [facility] 00 [facility] allergy allergy 2023-0 No .5mL Common extract extract 4 [facility] 00:00: - [facility] 00 [facility] allergy allergy 2023-0 No .5mL Common extract extract 4 [facility] 00:00: - [facility] 00 [facility] allergy allergy 2023-0 No .5mL Common extract extract 4 [facility] 00:00: - [facility] 00 [facility] allergy allergy 2023-0 No .5mL Common extract extract 4 [facility] 00:00: - [facility] 00 [facility] allergy allergy 2023-0 No .5mL Common extract extract 4 [facility] 00:00: - [facility] 00 [facility] allergy allergy 2023-0 No .5mL Common extract extract 4 [facility] 00:00: - [facility] 00 [facility] allergy allergy 2023-0 No .5mL Common extract extract 4 [facility] 00:00: - [facility] 00 [facility] allergy allergy 2023-0 No .5mL Common extract extract 4 [facility] 00:00: - [facility] 00 [facility] allergy allergy 2023-0 No .5mL Common extract extract 4 [facility] 00:00: - [facility] 00 [facility] allergy allergy 2023-0 No .5mL Common extract extract 4 [facility] 00:00: - [facility] 00 [facility] allergy allergy 2023-0 No .5mL Common extract extract 4 [facility] 00:00: - [facility] 00 [facility] allergy allergy 2023-0 No .5mL Common extract extract 4 [facility] 00:00: - [facility] 00 [facility] allergy allergy 2023-0 No .5mL Common extract extract 4 [facility] 00:00: - [facility] 00 [facility] allergy allergy 2023-0 No .5mL Common extract extract 4 [facility] 00:00: - [facility] 00 [facility] allergy allergy 2023-0 No .5mL Common extract extract 4 [facility] 00:00: - [facility] 00 [facility] allergy allergy 2023-0 No .5mL Common extract extract 4-07 [facility] 00:00: - [facility] 00 [facility] allergy allergy 3-0 No .5mL Common extract extract 4- [facility] 00:00: - [facility] 00 [facility] allergy allergy 3-0 No .5mL Common extract extract 4- [facility] 00:00: - [facility] 00 [facility] allergy allergy 3-0 No .4mL Common extract extract 3-31 [facility] 00:00: - [facility] 00 [facility] allergy allergy 3-0 No .4mL Common extract extract 3-31 [facility] 00:00: - [facility] 00 [facility] allergy allergy 3-0 No .4mL Common extract extract 3-31 [facility] 00:00: - [facility] 00 [facility] allergy allergy 3-0 No .4mL Common extract extract 3-31 [facility] 00:00: - [facility] 00 [facility] allergy allergy 3-0 No .4mL Common extract extract 3-31 [facility] 00:00: - [facility]I 00 [facility] allergy allergy 3-0 No .4mL Common extract extract 3-31 [facility] 00:00: - [facility]I 00 [facility] allergy allergy 3-0 No .4mL Common extract extract 3-31 [facility] 00:00: - [facility]I 00 [facility] allergy allergy 3-0 No .4mL Common extract extract 3-31 [facility] 00:00: - [facility]I 00 [facility] allergy allergy 3-0 No .4mL Common extract extract 3-31 [facility] 00:00: - [facility]I 00 [facility] allergy allergy 2023-0 No .4mL Common extract extract 3-31 [facility] 00:00: - [facility]I 00 [facility] allergy allergy 2023-0 No .4mL Common extract extract 3-31 [facility] 00:00: - [facility]I 00 [facility] allergy allergy 2023-0 No .4mL Common extract extract 3-31 [facility] 00:00: - [facility]I 00 [facility] allergy allergy 2023-0 No .4mL Common extract extract 3-31 [facility] 00:00: - [facility]I 00 [facility] allergy allergy 2023-0 No .4mL Common extract extract 3-31 [facility] 00:00: - [facility]I 00 [facility] allergy allergy 2023-0 No .4mL Common extract extract 3-31 [facility] 00:00: - [facility]I 00 [facility] allergy allergy 3-0 No .4mL Common extract extract 3-31 [facility] 00:00: - [facility]I 00 [facility] allergy allergy 3-0 No .4mL Common extract extract 3-31 [facility] 00:00: - [facility]I 00 [facility] allergy allergy 3-0 No .4mL Common extract extract 3-31 [facility] 00:00: - [facility]I 00 [facility] allergy allergy 3-0 No .4mL Common extract extract 3-31 [facility] 00:00: - [facility]I 00 [facility] allergy allergy 3-0 No .4mL Common extract extract 3-31 [facility] 00:00: - [facility]I 00 [facility] allergy allergy 3-0 No .4mL Common extract extract 3-31 [facility] 00:00: - [facility]I 00 [facility] allergy allergy 3-0 No .4mL Common extract extract 3-31 [facility] 00:00: - [facility]I 00 [facility] allergy allergy 3-0 No .4mL Common extract extract 3-31 [facility] 00:00: - [facility]I 00 [facility] allergy allergy 3-0 No .4mL Common extract extract 3-31 [facility] 00:00: - [facility]I 00 [facility] allergy allergy 3-0 No .4mL Common extract extract 3-31 [facility] 00:00: - [facility]I 00 [facility] allergy allergy 3-0 No .4mL Common extract extract 3-31 [facility] 00:00: - [facility]I 00 [facility] allergy allergy 2023-0 No .4mL Common extract extract 3-31 [facility] 00:00: - [facility]I 00 [facility] allergy allergy 2023-0 No .4mL Common extract extract 3-31 [facility] 00:00: - [facility]I 00 [facility] allergy allergy 3-0 No .4mL Common extract extract 3-31 [facility] 00:00: - [facility]I 00 [facility] allergy allergy 2023-0 No .4mL Common extract extract 3-31 [facility] 00:00: - [facility]I 00 [facility] allergy allergy 2023-0 No .4mL Common extract extract 3-31 [facility] 00:00: - [facility]I 00 [facility] allergy allergy 2023-0 No .4mL Common extract extract 3-31 [facility] 00:00: - [facility]I 00 [facility] allergy allergy 2023-0 No .4mL Common extract extract 3-31 [facility] 00:00: - [facility]I 00 [facility] allergy allergy 2023-0 No .4mL Common extract extract 3-31 [facility] 00:00: - [facility]I 00 [facility] allergy allergy 2023-0 No .4mL Common extract extract 3-31 [facility] 00:00: - [facility]I 00 [facility] allergy allergy 2023-0 No .4mL Common extract extract 3-31 [facility] 00:00: - [facility]I 00 [facility] allergy allergy 3-0 No .4mL Common extract extract 3-31 [facility] 00:00: - [facility]I 00 [facility] allergy allergy 3-0 No .4mL Common extract extract 3-31 [facility] 00:00: - [facility]I 00 [facility] allergy allergy 2023-0 No .4mL Common extract extract 3-31 [facility] 00:00: - [facility]I 00 [facility] allergy allergy 2023-0 No .4mL Common extract extract 3-31 [facility] 00:00: - [facility]I 00 [facility] allergy allergy 3-0 No .4mL Common extract extract 3-31 [facility] 00:00: - [facility]I 00 [facility] allergy allergy 3-0 No .4mL Common extract extract 3-31 [facility] 00:00: - [facility]I 00 [facility] allergy allergy 2023-0 No .4mL Common extract extract 3-31 [facility] 00:00: - [facility]I 00 [facility] allergy allergy 2023-0 No .4mL Common extract extract 3-31 [facility] 00:00: - [facility]I 00 [facility] allergy allergy 2023-0 No .4mL Common extract extract 3-31 [facility] 00:00: - [facility]I 00 [facility] allergy allergy 2023-0 No .4mL Common extract extract 3-31 [facility] 00:00: - [facility]I 00 [facility] allergy allergy 2023-0 No .4mL Common extract extract 3-31 [facility] 00:00: - [facility]I 00 [facility] allergy allergy 2023-0 No .4mL Common extract extract 3-31 [facility] 00:00: - [facility]I 00 [facility] allergy allergy 2023-0 No .4mL Common extract extract 3-31 [facility] 00:00: - [facility]I 00 [facility] allergy allergy 2023-0 No .4mL Common extract extract 3-31 [facility] 00:00: - [facility]I 00 [facility] allergy allergy 2023-0 No .4mL Common extract extract 3-31 [facility] 00:00: - [facility]I 00 [facility] allergy allergy 2023-0 No .4mL Common extract extract 3-31 [facility] 00:00: - [facility]I 00 [facility] allergy allergy 3-0 No .4mL Common extract extract 3-31 [facility] 00:00: - [facility]I 00 [facility] allergy allergy 3-0 No .4mL Common extract extract 3-31 [facility] 00:00: - [facility]I 00 [facility] allergy allergy 3-0 No .4mL Common extract extract 3-31 [facility] 00:00: - [facility]I 00 [facility] allergy allergy 3-0 No .4mL Common extract extract 3-31 [facility] 00:00: - [facility]I 00 [facility] allergy allergy 3-0 No .4mL Common extract extract 3-31 [facility] 00:00: - [facility]I 00 [facility] allergy allergy 3-0 No .4mL Common extract extract 3-31 [facility] 00:00: - [facility]I 00 [facility] allergy allergy 3-0 No .4mL Common extract extract 3-31 [facility] 00:00: - [facility]I 00 [facility] allergy allergy 2023-0 No .4mL Common extract extract 3-31 [facility] 00:00: - [facility]I 00 [facility] allergy allergy 2023-0 No .4mL Common extract extract 3-31 [facility] 00:00: - [facility]I 00 [facility] allergy allergy 2023-0 No .4mL Common extract extract 3-31 [facility] 00:00: - [facility]I 00 [facility] allergy allergy 2023-0 No .4mL Common extract extract 3-31 [facility] 00:00: - [facility]I 00 [facility] allergy allergy 2023-0 No .4mL Common extract extract 3-31 [facility] 00:00: - [facility]I 00 [facility] allergy allergy 2023-0 No .4mL Common extract extract 3-31 [facility] 00:00: - [facility]I 00 [facility] allergy allergy 2023-0 No .4mL Common extract extract 3-31 [facility] 00:00: - [facility]I 00 [facility] allergy allergy 3-0 No .4mL Common extract extract 3- [facility] 00:00: - CHI [facility] allergy allergy 3-0 No .4mL Common extract extract 3 [facility] 00:00: - [facility]I 00 [facility] allergy allergy 3-0 No .4mL Common extract extract 3 [facility] 00:00: - [facility]I 00 [facility] allergy allergy 3-0 No .4mL Common extract extract 3 [facility] 00:00: - [facility]I 00 [facility] allergy allergy 3-0 No .4mL Common extract extract 3 [facility] 00:00: - [facility]I 00 [facility] allergy allergy 3-0 No .4mL Common extract extract 3 [facility] 00:00: - [facility]I 00 [facility] Dexamethaso Dexamethaso 2022-0 No 4mg Common ne ne 3-03 [facility] 00:00: - CHI [facility] Kenalog Kenalog 2022-0 No 40mg Common (Triamcinol (Triamcinol 3-03 S pirit one) one) 00:00: - CHI 00 [facility] Dexamethaso Dexamethaso 2022-0 No 4mg Common ne ne 3-03 [facility] 00:00: - CHI 00 [facility] Kenalog Kenalog 2022-0 No 40mg Common (Triamcinol (Triamcinol 3-03 S pirit one) one) 00:00: - CHI 00 [facility] Dexamethaso Dexamethaso 2022-0 No 4mg Common ne ne 3-03 [facility] 00:00: - [facility]I 00 [facility] Kenalog Kenalog 2022-0 No 40mg Common (Triamcinol (Triamcinol 3-03 S pirit one) one) 00:00: - CHI 00 [facility] Dexamethaso Dexamethaso 2022-0 No 4mg Common ne ne 3-03 [facility] 00:00: - [facility]I 00 [facility] Kenalog Kenalog 2022-0 No 40mg Common (Triamcinol (Triamcinol 3-03 S pirit one) one) 00:00: - CHI 00 [facility] Dexamethaso Dexamethaso 2023-0 No 4mg Common ne ne 3-03 [facility] 00:00: - [facility]I 00 [facility] Kenalog Kenalog 2022-0 No 40mg Common (Triamcinol (Triamcinol 3-03 S pirit one) one) 00:00: - CHI 00 [facility] Dexamethaso Dexamethaso 3-0 No 4mg Common ne ne 3-03 [facility] 00:00: - CHI 00 [facility] Kenalog Kenalog 2022-0 No 40mg Common (Triamcinol (Triamcinol 3-03 S pirit one) one) 00:00: - CHI 00 [facility] Dexamethaso Dexamethaso 2022-0 No 4mg Common ne ne 3-03 [facility] 00:00: - CHI 00 [facility] Kenalog Kenalog 2022-0 No 40mg Common (Triamcinol (Triamcinol 3-03 S pirit one) one) 00:00: - CHI 00 [facility] Dexamethaso Dexamethaso 3-0 No 4mg Common ne ne 3-03 [facility] 00:00: - CHI 00 [facility] Kenalog Kenalog 2022-0 No 40mg Common (Triamcinol (Triamcinol 3-03 S pirit one) one) 00:00: - CHI 00 [facility] Dexamethaso Dexamethaso 3-0 No 4mg Common ne ne 3-03 [facility] 00:00: - CHI 00 [facility] Kenalog Kenalog 3-0 No 40mg Common (Triamcinol (Triamcinol 3-03 S pirit one) one) 00:00: - CHI 00 [facility] Dexamethaso Dexamethaso 3-0 No 4mg Common ne ne 3-03 [facility] 00:00: - CHI 00 [facility] Kenalog Kenalog 3-0 No 40mg Common (Triamcinol (Triamcinol 3-03 S pirit one) one) 00:00: - CHI 00 [facility] Dexamethaso Dexamethaso 3-0 No 4mg Common ne ne 3-03 [facility] 00:00: - CHI 00 [facility] Kenalog Kenalog 2022-0 No 40mg Common (Triamcinol (Triamcinol 3-03 S pirit one) one) 00:00: - CHI 00 [facility] Dexamethaso Dexamethaso 2022-0 No 4mg Common ne ne 3-03 [facility] 00:00: - CHI 00 [facility] Kenalog Kenalog 2022-0 No 40mg Common (Triamcinol (Triamcinol 3-03 S pirit one) one) 00:00: - CHI 00 [facility] Dexamethaso Dexamethaso 2022-0 No 4mg Common ne ne 3-03 [facility] 00:00: - CHI 00 [facility] Kenalog Kenalog 2022-0 No 40mg Common (Triamcinol (Triamcinol 3-03 S pirit one) one) 00:00: - CHI 00 [facility] Dexamethaso Dexamethaso 2022-0 No 4mg Common ne ne 3-03 [facility] 00:00: - CHI 00 [facility] Kenalog Kenalog 2022-0 No 40mg Common (Triamcinol (Triamcinol 3-03 S pirit one) one) 00:00: - CHI 00 [facility] Dexamethaso Dexamethaso 2022-0 No 4mg Common ne ne 3-03 [facility] 00:00: - CHI 00 [facility] Kenalog Kenalog 2022-0 No 40mg Common (Triamcinol (Triamcinol 3-03 S pirit one) one) 00:00: - CHI 00 [facility] Dexamethaso Dexamethaso 2022-0 No 4mg Common ne ne 3-03 [facility] 00:00: - CHI 00 [facility] Kenalog Kenalog 3-0 No 40mg Common (Triamcinol (Triamcinol 3-03 S pirit one) one) 00:00: - CHI 00 [facility] Dexamethaso Dexamethaso 3-0 No 4mg Common ne ne 3-03 [facility] 00:00: - CHI 00 [facility] Kenalog Kenalog 3-0 No 40mg Common (Triamcinol (Triamcinol 3-03 S pirit one) one) 00:00: - CHI 00 [facility] Dexamethaso Dexamethaso 2022-0 No 4mg Common ne ne 3-03 [facility] 00:00: - [facility]I 00 [facility] Kenalog Kenalog 2022-0 No 40mg Common (Triamcinol (Triamcinol 3-03 S pirit one) one) 00:00: - CHI 00 [facility] allergy allergy 3-0 No .15mL Common extract extract 2-17 [facility] 00:00: - [facility]I 00 [facility] allergy allergy 3-0 No .15mL Common extract extract 2-17 [facility] 00:00: - [facility]I 00 [facility] allergy allergy 3-0 No .15mL Common extract extract 2-17 [facility] 00:00: - [facility]I 00 [facility] allergy allergy 3-0 No .15mL Common extract extract 2-17 [facility] 00:00: - [facility]I 00 [facility] allergy allergy 3-0 No .15mL Common extract extract 2-17 [facility] 00:00: - [facility]I 00 [facility] allergy allergy 3-0 No .15mL Common extract extract 2-17 [facility] 00:00: - [facility]I 00 [facility] allergy allergy 3-0 No .15mL Common extract extract 2-17 [facility] 00:00: - [facility]I 00 [facility] allergy allergy 3-0 No .15mL Common extract extract 2-17 [facility] 00:00: - [facility]I 00 [facility] allergy allergy 3-0 No .15mL Common extract extract 2-17 [facility] 00:00: - [facility]I 00 [facility] allergy allergy 3-0 No .15mL Common extract extract 2-17 [facility] 00:00: - [facility]I 00 [facility] allergy allergy 3-0 No .15mL Common extract extract 2-17 [facility] 00:00: - [facility]I 00 [facility] allergy allergy 3-0 No .15mL Common extract extract 2-17 [facility] 00:00: - [facility]I 00 [facility] allergy allergy 3-0 No .15mL Common extract extract 2-17 [facility] 00:00: - [facility]I 00 [facility] allergy allergy 3-0 No .15mL Common extract extract 2-17 [facility] 00:00: - [facility]I 00 [facility] allergy allergy 2023-0 No .15mL Common extract extract 2-17 [facility] 00:00: - [facility]I 00 [facility] allergy allergy 2023-0 No .15mL Common extract extract 2-17 [facility] 00:00: - [facility]I 00 [facility] allergy allergy 3-0 No .15mL Common extract extract 2-17 [facility] 00:00: - [facility]I 00 [facility] allergy allergy 3-0 No .15mL Common extract extract 2-17 [facility] 00:00: - [facility]I 00 [facility] allergy allergy 3-0 No .15mL Common extract extract 2-17 [facility] 00:00: - [facility]I 00 [facility] allergy allergy 3-0 No .15mL Common extract extract 2-17 [facility] 00:00: - [facility]I 00 [facility] allergy allergy 3-0 No .15mL Common extract extract 2-17 [facility] 00:00: - [facility]I 00 [facility] allergy allergy 3-0 No .15mL Common extract extract 2-17 [facility] 00:00: - [facility]I 00 [facility] allergy allergy 3-0 No .15mL Common extract extract 2-17 [facility] 00:00: - [facility]I 00 [facility] allergy allergy 3-0 No .15mL Common extract extract 2-17 [facility] 00:00: - [facility]I 00 [facility] allergy allergy 3-0 No .15mL Common extract extract 2-17 [facility] 00:00: - [facility]I 00 [facility] allergy allergy 3-0 No .15mL Common extract extract 2-17 [facility] 00:00: - [facility]I 00 [facility] allergy allergy 3-0 No .15mL Common extract extract 2-17 [facility] 00:00: - [facility]I 00 [facility] allergy allergy 2023-0 No .15mL Common extract extract 2-17 [facility] 00:00: - [facility]I 00 [facility] allergy allergy 2023-0 No .15mL Common extract extract 2-17 [facility] 00:00: - [facility]I 00 [facility] allergy allergy 2023-0 No .15mL Common extract extract 2-17 [facility] 00:00: - [facility]I 00 [facility] allergy allergy 2023-0 No .15mL Common extract extract 2-17 [facility] 00:00: - [facility]I 00 [facility] allergy allergy 2023-0 No .15mL Common extract extract 2-17 [facility] 00:00: - [facility]I 00 [facility] allergy allergy 2023-0 No .15mL Common extract extract 2-17 [facility] 00:00: - [facility]I 00 [facility] allergy allergy 3-0 No .15mL Common extract extract 2-17 [facility] 00:00: - [facility]I 00 [facility] allergy allergy 3-0 No .15mL Common extract extract 2-17 [facility] 00:00: - [facility]I 00 [facility] allergy allergy 3-0 No .15mL Common extract extract 2-17 [facility] 00:00: - [facility]I 00 [facility] allergy allergy 3-0 No .15mL Common extract extract 2-17 [facility] 00:00: - [facility]I 00 [facility] allergy allergy 3-0 No .15mL Common extract extract 2-17 [facility] 00:00: - [facility]I 00 [facility] allergy allergy 3-0 No .15mL Common extract extract 2-17 [facility] 00:00: - [facility]I 00 [facility] allergy allergy 3-0 No .15mL Common extract extract 2-17 [facility] 00:00: - [facility]I 00 [facility] allergy allergy 3-0 No .15mL Common extract extract 2-17 [facility] 00:00: - [facility]I 00 [facility] allergy allergy 3-0 No .15mL Common extract extract 2-17 [facility] 00:00: - [facility]I 00 [facility] allergy allergy 3-0 No .15mL Common extract extract 2-17 [facility] 00:00: - [facility]I 00 [facility] allergy allergy 2023-0 No .15mL Common extract extract 2-17 [facility] 00:00: - [facility]I 00 [facility] allergy allergy 2023-0 No .15mL Common extract extract 2-17 [facility] 00:00: - [facility]I 00 [facility] allergy allergy 2023-0 No .15mL Common extract extract 2-17 [facility] 00:00: - [facility]I 00 [facility] allergy allergy 2023-0 No .15mL Common extract extract 2-17 [facility] 00:00: - [facility]I 00 [facility] allergy allergy 2023-0 No .15mL Common extract extract 2-17 [facility] 00:00: - [facility]I 00 [facility] allergy allergy 2023-0 No .15mL Common extract extract 2-17 [facility] 00:00: - [facility]I 00 [facility] allergy allergy 2023-0 No .15mL Common extract extract 2-17 [facility] 00:00: - [facility]I 00 [facility] allergy allergy 3-0 No .15mL Common extract extract 2-17 [facility] 00:00: - [facility]I 00 [facility] allergy allergy 3-0 No .15mL Common extract extract 2-17 [facility] 00:00: - [facility]I 00 [facility] allergy allergy 3-0 No .15mL Common extract extract 2-17 [facility] 00:00: - [facility]I 00 [facility] allergy allergy 3-0 No .15mL Common extract extract 2-17 [facility] 00:00: - [facility]I 00 [facility] allergy allergy 3-0 No .15mL Common extract extract 2-17 [facility] 00:00: - [facility]I 00 [facility] allergy allergy 3-0 No .15mL Common extract extract 2-17 [facility] 00:00: - [facility]I 00 [facility] allergy allergy 3-0 No .15mL Common extract extract 2-17 [facility] 00:00: - [facility]I 00 [facility] allergy allergy 3-0 No .15mL Common extract extract 2-17 [facility] 00:00: - [facility]I 00 [facility] allergy allergy 3-0 No .15mL Common extract extract 2-17 [facility] 00:00: - [facility]I 00 [facility] allergy allergy 3-0 No .15mL Common extract extract 2-17 [facility] 00:00: - [facility]I 00 [facility] allergy allergy 3-0 No .15mL Common extract extract 2-17 [facility] 00:00: - [facility]I 00 [facility] allergy allergy 3-0 No .15mL Common extract extract 2-17 [facility] 00:00: - [facility]I 00 [facility] allergy allergy 3-0 No .15mL Common extract extract 2-17 [facility] 00:00: - [facility]I 00 [facility] allergy allergy 3-0 No .15mL Common extract extract 2-17 [facility] 00:00: - [facility]I 00 [facility] allergy allergy 3-0 No .15mL Common extract extract 2-17 [facility] 00:00: - [facility]I 00 [facility] allergy allergy 3-0 No .15mL Common extract extract 2-17 [facility] 00:00: - [facility]I 00 [facility] allergy allergy 2023-0 No .15mL Common extract extract 2-17 [facility] 00:00: - [facility]I 00 [facility] allergy allergy 3-0 No .15mL Common extract extract 2-17 [facility] 00:00: - [facility]I 00 [facility] allergy allergy 3-0 No .15mL Common extract extract 2-17 [facility] 00:00: - [facility]I 00 [facility] allergy allergy 3-0 No .15mL Common extract extract 2-17 [facility] 00:00: - [facility]I 00 [facility] allergy allergy 3-0 No .15mL Common extract extract 2-17 [facility] 00:00: - [facility]I 00 [facility] allergy allergy 3-0 No .15mL Common extract extract 2-17 [facility] 00:00: - [facility]I 00 [facility] allergy allergy 3-0 No .1mL Common extract extract 2-10 [facility] 00:00: - CHI [facility] allergy allergy 3-0 No .1mL Common extract extract 2-10 [facility] 00:00: - CHI [facility] allergy allergy 3-0 No .1mL Common extract extract 2-10 [facility] 00:00: - [facility]I 00 [facility] allergy allergy 3-0 No .1mL Common extract extract 2-10 [facility] 00:00: - [facility]I 00 [facility] allergy allergy 3-0 No .1mL Common extract extract 2-10 [facility] 00:00: - [facility]I 00 [facility] allergy allergy 3-0 No .1mL Common extract extract 2-10 [facility] 00:00: - [facility]I 00 [facility] allergy allergy 2023-0 No .1mL Common extract extract 2-10 [facility] 00:00: - [facility]I 00 [facility] allergy allergy 2023-0 No .1mL Common extract extract 2-10 [facility] 00:00: - [facility]I 00 [facility] allergy allergy 3-0 No .1mL Common extract extract 2-10 [facility] 00:00: - [facility]I 00 [facility] allergy allergy 3-0 No .1mL Common extract extract 2-10 [facility] 00:00: - [facility]I 00 [facility] allergy allergy 3-0 No .1mL Common extract extract 2-10 [facility] 00:00: - [facility]I 00 [facility] allergy allergy 2023-0 No .1mL Common extract extract 2-10 [facility] 00:00: - [facility]I 00 [facility] allergy allergy 2023-0 No .1mL Common extract extract 2-10 [facility] 00:00: - [facility]I 00 [facility] allergy allergy 3-0 No .1mL Common extract extract 2-10 [facility] 00:00: - [facility]I 00 [facility] allergy allergy 3-0 No .1mL Common extract extract 2-10 [facility] 00:00: - [facility]I 00 [facility] allergy allergy 3-0 No .1mL Common extract extract 2-10 [facility] 00:00: - [facility]I 00 [facility] allergy allergy 3-0 No .1mL Common extract extract 2-10 [facility] 00:00: - [facility]I 00 [facility] allergy allergy 3-0 No .1mL Common extract extract 2-10 [facility] 00:00: - [facility]I 00 [facility] allergy allergy 3-0 No .1mL Common extract extract 2-10 [facility] 00:00: - [facility]I 00 [facility] allergy allergy 3-0 No .1mL Common extract extract 2-10 [facility] 00:00: - [facility]I 00 [facility] allergy allergy 3-0 No .1mL Common extract extract 2-10 [facility] 00:00: - [facility]I 00 [facility] allergy allergy 3-0 No .1mL Common extract extract 2-10 [facility] 00:00: - [facility]I 00 [facility] allergy allergy 3-0 No .1mL Common extract extract 2-10 [facility] 00:00: - [facility]I 00 [facility] allergy allergy 3-0 No .1mL Common extract extract 2-10 [facility] 00:00: - [facility]I 00 [facility] allergy allergy 2023-0 No .1mL Common extract extract 2-10 [facility] 00:00: - [facility]I 00 [facility] allergy allergy 2023-0 No .1mL Common extract extract 2-10 [facility] 00:00: - [facility]I 00 [facility] allergy allergy 2023-0 No .1mL Common extract extract 2-10 [facility] 00:00: - [facility]I 00 [facility] allergy allergy 2023-0 No .1mL Common extract extract 2-10 [facility] 00:00: - [facility]I 00 [facility] allergy allergy 2023-0 No .1mL Common extract extract 2-10 [facility] 00:00: - [facility]I 00 [facility] allergy allergy 2023-0 No .1mL Common extract extract 2-10 [facility] 00:00: - [facility]I 00 [facility] allergy allergy 3-0 No .1mL Common extract extract 2-10 [facility] 00:00: - [facility]I 00 [facility] allergy allergy 3-0 No .1mL Common extract extract 2-10 [facility] 00:00: - [facility]I 00 [facility] allergy allergy 3-0 No .1mL Common extract extract 2-10 [facility] 00:00: - [facility]I 00 [facility] allergy allergy 3-0 No .1mL Common extract extract 2-10 [facility] 00:00: - [facility]I 00 [facility] allergy allergy 3-0 No .1mL Common extract extract 2-10 [facility] 00:00: - [facility]I 00 [facility] allergy allergy 3-0 No .1mL Common extract extract 2-10 [facility] 00:00: - [facility]I 00 [facility] allergy allergy 3-0 No .1mL Common extract extract 2-10 [facility] 00:00: - [facility]I 00 [facility] allergy allergy 3-0 No .1mL Common extract extract 2-10 [facility] 00:00: - [facility]I 00 [facility] allergy allergy 3-0 No .1mL Common extract extract 2-10 [facility] 00:00: - [facility]I 00 [facility] allergy allergy 3-0 No .1mL Common extract extract 2-10 [facility] 00:00: - [facility]I 00 [facility] allergy allergy 3-0 No .1mL Common extract extract 2-10 [facility] 00:00: - [facility]I 00 [facility] allergy allergy 2023-0 No .1mL Common extract extract 2-10 [facility] 00:00: - [facility]I 00 [facility] allergy allergy 2023-0 No .1mL Common extract extract 2-10 [facility] 00:00: - [facility]I 00 [facility] allergy allergy 2023-0 No .1mL Common extract extract 2-10 [facility] 00:00: - [facility]I 00 [facility] allergy allergy 2023-0 No .1mL Common extract extract 2-10 [facility] 00:00: - [facility]I 00 [facility] allergy allergy 2023-0 No .1mL Common extract extract 2-10 [facility] 00:00: - [facility]I 00 [facility] allergy allergy 2023-0 No .1mL Common extract extract 2-10 [facility] 00:00: - [facility]I 00 [facility] allergy allergy 2023-0 No .1mL Common extract extract 2-10 [facility] 00:00: - [facility]I 00 [facility] allergy allergy 2023-0 No .1mL Common extract extract 2-10 [facility] 00:00: - [facility]I 00 [facility] allergy allergy 3-0 No .1mL Common extract extract 2-10 [facility] 00:00: - [facility]I 00 [facility] allergy allergy 3-0 No .1mL Common extract extract 2-10 [facility] 00:00: - [facility]I 00 [facility] allergy allergy 3-0 No .1mL Common extract extract 2-10 [facility] 00:00: - [facility]I 00 [facility] allergy allergy 3-0 No .1mL Common extract extract 2-10 [facility] 00:00: - CHI [facility] allergy allergy 3-0 No .1mL Common extract extract 2-10 [facility] 00:00: - CHI [facility] allergy allergy 3-0 No .1mL Common extract extract 2-10 [facility] 00:00: - [facility]I 00 [facility] allergy allergy 3-0 No .1mL Common extract extract 2-10 [facility] 00:00: - [facility]I 00 [facility] allergy allergy 3-0 No .1mL Common extract extract 2-10 [facility] 00:00: - [facility] allergy allergy 2023-0 No .1mL Common extract extract 2-10 [facility] 00:00: - [facility] 00 [facility] allergy allergy 2023-0 No .1mL Common extract extract 2[facility]10 [facility] 00:00: - [facility] 00 [facility] allergy allergy 2023-0 No .1mL Common extract extract 2[facility]10 [facility] 00:00: - [facility] 00 [facility] allergy allergy 2023-0 No .1mL Common extract extract 2[facility]10 [facility] 00:00: - [facility] 00 [facility] allergy allergy 2023-0 No .1mL Common extract extract 2[facility]10 [facility] 00:00: - [facility] 00 [facility] allergy allergy 2023-0 No .1mL Common extract extract 2[facility]10 [facility] 00:00: - [facility]I 00 [facility] allergy allergy 2023-0 No .1mL Common extract extract 2[facility]10 [facility] 00:00: - [facility]I 00 [facility] allergy allergy 3-0 No .1mL Common extract extract 2[facility]10 [facility] 00:00: - [facility]I 00 [facility] allergy allergy 3-0 No .1mL Common extract extract 2[facility]10 [facility] 00:00: - [facility] 00 [facility] allergy allergy 3-0 No .1mL Common extract extract 2[facility]10 [facility] 00:00: - [facility]I 00 [facility] allergy allergy 3-0 No .1mL Common extract extract 2[facility]10 [facility] 00:00: - [facility]I 00 [facility] allergy allergy 3-0 No .1mL Common extract extract 2[facility]10 [facility] 00:00: - [facility]I 00 [facility] allergy allergy 3-0 No .1mL Common extract extract 2[facility]10 [facility] 00:00: - [facility] 00 [facility] allergy allergy 3-0 No .1mL Common extract extract 2[facility]10 [facility] 00:00: - [facility]I 00 [facility] allergy allergy 3-0 No .1mL Common extract extract 2[facility]10 [facility] 00:00: - [facility] 00 [facility] allergy allergy 3-0 No Common extract extract 1-27 [facility] 00:00: - [facility] 00 [facility] allergy allergy 3-0 No .1mL Common extract extract 1-27 [facility] 00:00: - [facility]I 00 [facility] allergy allergy 3-0 No .1mL Common extract extract 1[facility]27 [facility] 00:00: - [facility] 00 [facility] allergy allergy 2023-0 No .1mL Common extract extract 1[facility]27 [facility] 00:00: - [facility] 00 [facility] allergy allergy 2023-0 No Common extract extract 1-27 [facility] 00:00: - [facility] 00 [facility] allergy allergy 2023-0 No .1mL Common extract extract 1[facility]27 [facility] 00:00: - [facility] 00 [facility] allergy allergy 2023-0 No .1mL Common extract extract 1[facility]27 [facility] 00:00: - [facility] 00 [facility] allergy allergy 2023-0 No .1mL Common extract extract 1[facility]27 [facility] 00:00: - [facility]I 00 [facility] allergy allergy 2023-0 No Common extract extract 1-27 [facility] 00:00: - [facility] 00 [facility] allergy allergy 2023-0 No .1mL Common extract extract 05-29 [facility] 00:00: - [facility] 00 [facility] allergy allergy 2023-0 No .1mL Common extract extract 05-29 [facility] 00:00: - [facility] 00 [facility] allergy allergy 2023-0 No .1mL Common extract extract 05-29 [facility] 00:00: - [facility]I 00 [facility] allergy allergy 3-0 No Common extract extract 05-29 [facility] 00:00: - [facility] 00 [facility] allergy allergy 2023-0 No .1mL Common extract extract 05-29 [facility] 00:00: - [facility] 00 [facility] allergy allergy 3-0 No .1mL Common extract extract 05-29 [facility] 00:00: - [facility] 00 [facility] allergy allergy 3-0 No .1mL Common extract extract 05-29 [facility] 00:00: - [facility] 00 [facility] allergy allergy 3-0 No Common extract extract 05-29 [facility] 00:00: - [facility] 00 [facility] allergy allergy 3-0 No .1mL Common extract extract 05-29 [facility] 00:00: - [facility] 00 [facility] allergy allergy 3-0 No .1mL Common extract extract 05-29 [facility] 00:00: - [facility] 00 [facility] allergy allergy 3-0 No .1mL Common extract extract 05-29 [facility] 00:00: - [facility]I 00 [facility] allergy allergy 2023-0 No Common extract extract 05-29 [facility] 00:00: - [facility] 00 [facility] allergy allergy 2023-0 No .1mL Common extract extract 05-29 [facility] 00:00: - [facility] 00 [facility] allergy allergy 2023-0 No .1mL Common extract extract 05-29 [facility] 00:00: - [facility] 00 [facility] allergy allergy 2023-0 No .1mL Common extract extract 05-29 [facility] 00:00: - [facility]I 00 [facility] allergy allergy 2023-0 No Common extract extract 05-29 [facility] 00:00: - [facility] 00 [facility] allergy allergy 2023-0 No .1mL Common extract extract 05-29 [facility] 00:00: - [facility] 00 [facility] allergy allergy 2023-0 No .1mL Common extract extract 05-29 [facility] 00:00: - [facility] 00 [facility] allergy allergy 2023-0 No .1mL Common extract extract 05-29 [facility] 00:00: - [facility]I 00 [facility] allergy allergy 3-0 No Common extract extract 05-29 [facility] 00:00: - [facility] 00 [facility] allergy allergy 2023-0 No .1mL Common extract extract 05-29 [facility] 00:00: - [facility] 00 [facility] allergy allergy 3-0 No .1mL Common extract extract 05-29 [facility] 00:00: - [facility] 00 [facility] allergy allergy 3-0 No .1mL Common extract extract 05-29 [facility] 00:00: - [facility] 00 [facility] allergy allergy 3-0 No Common extract extract 05-29 [facility] 00:00: - [facility]I 00 [facility] allergy allergy 3-0 No .1mL Common extract extract 05-29 [facility] 00:00: - [facility] 00 [facility] allergy allergy 3-0 No .1mL Common extract extract 05-29 [facility] 00:00: - [facility] 00 [facility] allergy allergy 3-0 No .1mL Common extract extract 05-29 [facility] 00:00: - [facility]I 00 [facility] allergy allergy 3-0 No Common extract extract 05-29 [facility] 00:00: - [facility]I 00 [facility] allergy allergy 3-0 No .1mL Common extract extract 05-29 [facility] 00:00: - [facility]I 00 [facility] allergy allergy 2023-0 No .1mL Common extract extract 05-29 [facility] 00:00: - [facility] 00 [facility] allergy allergy 2023-0 No .1mL Common extract extract 05-29 [facility] 00:00: - [facility]I 00 [facility] allergy allergy 2023-0 No Common extract extract 05-29 [facility] 00:00: - [facility]I 00 [facility] allergy allergy 2023-0 No .1mL Common extract extract 05-29 [facility] 00:00: - [facility]I 00 [facility] allergy allergy 2023-0 No .1mL Common extract extract 05-29 [facility] 00:00: - [facility] 00 [facility] allergy allergy 2023-0 No .1mL Common extract extract 05-29 [facility] 00:00: - [facility]I 00 [facility] allergy allergy 2023-0 No Common extract extract 05-29 [facility] 00:00: - [facility] 00 [facility] allergy allergy 2023-0 No .1mL Common extract extract 05-29 [facility] 00:00: - [facility] 00 [facility] allergy allergy 2023-0 No .1mL Common extract extract 05-29 [facility] 00:00: - [facility] 00 [facility] allergy allergy 2023-0 No .1mL Common extract extract 05-29 [facility] 00:00: - [facility]I 00 [facility] allergy allergy 2023-0 No Common extract extract 05-29 [facility] 00:00: - [facility]I 00 [facility] allergy allergy 2023-0 No .1mL Common extract extract 05-29 [facility] 00:00: - [facility] 00 [facility] allergy allergy 2023-0 No .1mL Common extract extract 05-29 [facility] 00:00: - [facility] 00 [facility] allergy allergy 2023-0 No .1mL Common extract extract 05-29 [facility] 00:00: - [facility]I 00 [facility] allergy allergy 2023-0 No Common extract extract 05-29 [facility] 00:00: - [facility]I 00 [facility] allergy allergy 2023-0 No .1mL Common extract extract 05-29 [facility] 00:00: - [facility] 00 [facility] allergy allergy 2023-0 No .1mL Common extract extract 05-29 [facility] 00:00: - [facility] 00 [facility] allergy allergy 2023-0 No .1mL Common extract extract 05-29 [facility] 00:00: - [facility] 00 [facility] allergy allergy 2023-0 No Common extract extract 05-29 [facility] 00:00: - [facility]I 00 [facility] allergy allergy 2023-0 No .1mL Common extract extract 05-29 [facility] 00:00: - [facility] 00 [facility] allergy allergy 2023-0 No .1mL Common extract extract 05-29 [facility] 00:00: - [facility] 00 [facility] allergy allergy 2023-0 No .1mL Common extract extract 05-29 [facility] 00:00: - [facility]I 00 [facility] allergy allergy 2023-0 No Common extract extract 05-29 [facility] 00:00: - [facility] 00 [facility] allergy allergy 2023-0 No .1mL Common extract extract 05-29 [facility] 00:00: - [facility] 00 [facility] allergy allergy 2023-0 No .1mL Common extract extract 05-29 [facility] 00:00: - [facility] 00 [facility] allergy allergy 3-0 No .1mL Common extract extract 05-29 [facility] 00:00: - [facility] 00 [facility] allergy allergy 3-0 No Common extract extract 05-29 [facility] 00:00: - [facility] 00 [facility] allergy allergy 3-0 No .1mL Common extract extract 05-29 [facility] 00:00: - [facility] 00 [facility] allergy allergy 3-0 No Common extract extract 05-29 [facility] 00:00: - [facility] 00 [facility] allergy allergy 3-0 No .1mL Common extract extract 05-29 [facility] 00:00: - [facility] 00 [facility] allergy allergy 3-0 No .1mL Common extract extract 05-29 [facility] 00:00: - [facility] 00 [facility] allergy allergy 3-0 No .1mL Common extract extract 05-29 [facility] 00:00: - [facility] 00 [facility] allergy allergy 3-0 No Common extract extract 05-29 [facility] 00:00: - [facility] 00 [facility] allergy allergy 3-0 No .1mL Common extract extract 05-29 [facility] 00:00: - [facility] 00 [facility] allergy allergy 3-0 No .1mL Common extract extract 05-29 [facility] 00:00: - [facility] 00 [facility] allergy allergy 3-0 No .1mL Common extract extract 05-29 [facility] 00:00: - [facility] 00 [facility] allergy allergy 2023-0 No .1mL Common extract extract 05-29 [facility] 00:00: - [facility] 00 [facility] allergy allergy 2023-0 No .1mL Common extract extract 05-29 [facility] 00:00: - [facility]I 00 [facility] allergy allergy 3-0 No Common extract extract 05-29 [facility] 00:00: - [facility]I 00 [facility] allergy allergy 2023-0 No .1mL Common extract extract 05-29 [facility] 00:00: - [facility]I 00 [facility] allergy allergy 2023-0 No .1mL Common extract extract 05-29 [facility] 00:00: - [facility] 00 [facility] allergy allergy 2023-0 No .1mL Common extract extract 1-27 [facility] 00:00: - [facility] 00 [facility] allergy allergy 2023-0 No .1mL Common extract extract 1-20 [facility] 00:00: - [facility] 00 [facility] allergy allergy 3-0 No .1mL Common extract extract 1-20 [facility] 00:00: - [facility] 00 [facility] allergy allergy 3-0 No .1mL Common extract extract 1-20 [facility] 00:00: - [facility] 00 [facility] allergy allergy 3-0 No .1mL Common extract extract 1-20 [facility] 00:00: - [facility] 00 [facility] allergy allergy 3-0 No .1mL Common extract extract 1-20 [facility] 00:00: - [facility] 00 [facility] allergy allergy 3-0 No .1mL Common extract extract 1-20 [facility] 00:00: - [facility] 00 [facility] allergy allergy 3-0 No .1mL Common extract extract 1-20 [facility] 00:00: - [facility] allergy allergy 3-0 No .1mL Common extract extract 1-20 [facility] 00:00: - [facility] 00 [facility] allergy allergy 3-0 No .1mL Common extract extract 1-20 [facility] 00:00: - [facility] 00 [facility] allergy allergy 3-0 No .1mL Common extract extract 1-20 [facility] 00:00: - [facility] 00 [facility] allergy allergy 3-0 No .1mL Common extract extract 1-20 [facility] 00:00: - [facility]I 00 [facility] allergy allergy 2023-0 No .1mL Common extract extract 1-20 [facility] 00:00: - [facility] 00 [facility] allergy allergy 2023-0 No .1mL Common extract extract 1-20 [facility] 00:00: - [facility]I 00 [facility] allergy allergy 2023-0 No .1mL Common extract extract 1-20 [facility] 00:00: - [facility]I 00 [facility] allergy allergy 2023-0 No .1mL Common extract extract 1-20 [facility] 00:00: - [facility]I 00 [facility] allergy allergy 2023-0 No .1mL Common extract extract 1-20 [facility] 00:00: - [facility]I 00 [facility] allergy allergy 2023-0 No .1mL Common extract extract 1-20 [facility] 00:00: - [facility] 00 [facility] allergy allergy 2023-0 No .1mL Common extract extract 1-20 [facility] 00:00: - [facility] 00 [facility] allergy allergy 3-0 No .1mL Common extract extract 1-20 [facility] 00:00: - [facility] 00 [facility] allergy allergy 3-0 No .1mL Common extract extract 1-20 [facility] 00:00: - [facility]I 00 [facility] allergy allergy 3-0 No .1mL Common extract extract 1-20 [facility] 00:00: - [facility] 00 [facility] allergy allergy 3-0 No .1mL Common extract extract 1-20 [facility] 00:00: - [facility] 00 [facility] allergy allergy 3-0 No .1mL Common extract extract 1-20 [facility] 00:00: - [facility] 00 [facility] allergy allergy 3-0 No .1mL Common extract extract 1-20 [facility] 00:00: - [facility] 00 [facility] allergy allergy 3-0 No .1mL Common extract extract 1-20 [facility] 00:00: - [facility] 00 [facility] allergy allergy 3-0 No .1mL Common extract extract 1-20 [facility] 00:00: - [facility]I 00 [facility] allergy allergy 3-0 No .1mL Common extract extract 1-20 [facility] 00:00: - CH[facility] allergy allergy 3-0 No .1mL Common extract extract 1-20 [facility] 00:00: - [facility]I 00 [facility] allergy allergy 3-0 No .1mL Common extract extract 1-20 [facility] 00:00: - [facility]I 00 [facility] allergy allergy 2023-0 No .1mL Common extract extract 1-20 [facility] 00:00: - [facility] 00 [facility] allergy allergy 2023-0 No .1mL Common extract extract 1-20 [facility] 00:00: - [facility] 00 [facility] allergy allergy 2023-0 No .1mL Common extract extract 1-20 [facility] 00:00: - [facility]I 00 [facility] allergy allergy 2023-0 No .1mL Common extract extract 1-20 [facility] 00:00: - [facility]I 00 [facility] allergy allergy 2023-0 No .1mL Common extract extract 1-20 [facility] 00:00: - [facility]I 00 [facility] allergy allergy 2023-0 No .1mL Common extract extract 1-20 [facility] 00:00: - [facility] 00 [facility] allergy allergy 3-0 No .1mL Common extract extract 1-20 [facility] 00:00: - [facility]I 00 [facility] allergy allergy 2023-0 No .1mL Common extract extract 1-20 [facility] 00:00: - [facility] 00 [facility] allergy allergy 3-0 No .1mL Common extract extract 1-20 [facility] 00:00: - [facility]I 00 [facility] allergy allergy 3-0 No .1mL Common extract extract 1-20 [facility] 00:00: - [facility] 00 [facility] allergy allergy 3-0 No .1mL Common extract extract 1-20 [facility] 00:00: - [facility] 00 [facility] allergy allergy 3-0 No .1mL Common extract extract 1-20 [facility] 00:00: - CH[facility] allergy allergy 3-0 No .1mL Common extract extract 1-20 [facility] 00:00: - CH[facility] allergy allergy 3-0 No .1mL Common extract extract 1-20 [facility] 00:00: - [facility]I 00 [facility] allergy allergy 3-0 No .1mL Common extract extract 1-20 [facility] 00:00: - [facility] 00 [facility] allergy allergy 3-0 No .1mL Common extract extract 1-20 [facility] 00:00: - CH[facility] allergy allergy 2023-0 No .1mL Common extract extract 1-20 [facility] 00:00: - [facility]I 00 [facility] allergy allergy 2023-0 No .1mL Common extract extract 1-20 [facility] 00:00: - [facility]I 00 [facility] allergy allergy 2023-0 No .1mL Common extract extract 1-20 [facility] 00:00: - [facility] 00 [facility] allergy allergy 2023-0 No .1mL Common extract extract 1-20 [facility] 00:00: - [facility] 00 [facility] allergy allergy 2023-0 No .1mL Common extract extract 1-20 [facility] 00:00: - [facility] 00 [facility] allergy allergy 2023-0 No .1mL Common extract extract 1-20 [facility] 00:00: - [facility] 00 [facility] allergy allergy 2023-0 No .1mL Common extract extract 1-20 [facility] 00:00: - [facility]I 00 [facility] allergy allergy 3-0 No .1mL Common extract extract 1-20 [facility] 00:00: - [facility]I 00 [facility] allergy allergy 3-0 No .1mL Common extract extract 1-20 [facility] 00:00: - [facility] 00 [facility] allergy allergy 3-0 No .1mL Common extract extract 1-20 [facility] 00:00: - [facility] 00 [facility] allergy allergy 3-0 No .1mL Common extract extract 1-20 [facility] 00:00: - [facility] 00 [facility] allergy allergy 3-0 No .1mL Common extract extract 1-20 [facility] 00:00: - [facility] 00 [facility] allergy allergy 3-0 No .1mL Common extract extract 1[facility]20 [facility] 00:00: - [facility] allergy allergy 3-0 No .1mL Common extract extract 1-20 [facility] 00:00: - CH[facility] allergy allergy 3-0 No .1mL Common extract extract 1-20 [facility] 00:00: - CH[facility] allergy allergy 3-0 No .1mL Common extract extract 1-20 [facility] 00:00: - [facility] 00 [facility] allergy allergy 3-0 No .1mL Common extract extract 1-20 [facility] 00:00: - CH[facility] allergy allergy 3-0 No .1mL Common extract extract 1-20 [facility] 00:00: - CHI [facility] allergy allergy 3-0 No .1mL Common extract extract 1[facility]20 [facility] 00:00: - [facility]I 00 [facility] allergy allergy 3-0 No .1mL Common extract extract 1-20 [facility] 00:00: - [facility] 00 [facility] allergy allergy 3-0 No .1mL Common extract extract 1-20 [facility] 00:00: - [facility]I 00 [facility] allergy allergy 3-0 No .1mL Common extract extract 1[facility]20 [facility] 00:00: - [facility]I 00 [facility] allergy allergy 3-0 No .1mL Common extract extract 1[facility]20 [facility] 00:00: - [facility] 00 [facility] allergy allergy 3-0 No .1mL Common extract extract 1[facility]20 [facility] 00:00: - [facility]I 00 [facility] allergy allergy 3-0 No .1mL Common extract extract 1[facility]20 [facility] 00:00: - [facility]I 00 [facility] allergy allergy 3-0 No .1mL Common extract extract 1[facility]20 [facility] 00:00: - [facility] 00 [facility] allergy allergy 3-0 No .1mL Common extract extract 1[facility]20 [facility] 00:00: - [facility]I 00 [facility] allergy allergy 3-0 No .1mL Common extract extract 1[facility]20 [facility] 00:00: - [facility] 00 [facility] allergy allergy 3-0 No .1mL Common extract extract 1-20 [facility] 00:00: - [facility] 00 [facility] allergy allergy 3-0 No .1mL Common extract extract 1[facility]20 [facility] 00:00: - CH[facility] allergy allergy 3-0 No .1mL Common extract extract 1[facility]20 [facility] 00:00: - CHI [facility] allergy allergy 3-0 No .1mL Common extract extract 1[facility]20 [facility] 00:00: - CH[facility] allergy allergy 3-0 No .1mL Common extract extract 1[facility]20 [facility] 00:00: - CH[facility] allergy allergy 3-0 No .1mL Common extract extract 1-20 [facility] 00:00: - CHI [facility] allergy allergy 3-0 No .1mL Common extract extract 1[facility]20 [facility] 00:00: - CHI [facility] allergy allergy 2-1 No .05mL Common extract extract 2-30 [facility] 00:00: - [facility]I 00 [facility] allergy allergy 2021-1 No .05mL Common extract extract 2[facility]30 [facility] 00:00: - [facility]I 00 [facility] allergy allergy 2-1 No .05mL Common extract extract 2[facility]30 [facility] 00:00: - [facility]I 00 [facility] allergy allergy 2-1 No .05mL Common extract extract 2[facility]30 [facility] 00:00: - [facility] 00 [facility] allergy allergy 2021-1 No .05mL Common extract extract 2[facility]30 [facility] 00:00: - [facility]I 00 [facility] allergy allergy 2021-1 No .05mL Common extract extract 2[facility]30 [facility] 00:00: - [facility] 00 [facility] allergy allergy 2021- No .05mL Common extract extract 2[facility]30 [facility] 00:00: - [facility] 00 [facility] allergy allergy 2021- No .05mL Common extract extract 2-30 [facility] 00:00: - [facility] 00 [facility] allergy allergy 2021- No .05mL Common extract extract 2[facility]30 [facility] 00:00: - [facility] 00 [facility] allergy allergy 2021- No .05mL Common extract extract 2[facility]30 [facility] 00:00: - [facility] 00 [facility] allergy allergy 2021- No .05mL Common extract extract 2[facility]30 [facility] 00:00: - [facility] 00 [facility] allergy allergy 2021- No .05mL Common extract extract 2[facility]30 [facility] 00:00: - [facility] 00 [facility] allergy allergy 2021- No .05mL Common extract extract 2[facility]30 [facility] 00:00: - [facility] 00 [facility] allergy allergy 2021- No .05mL Common extract extract 2[facility]30 [facility] 00:00: - [facility] 00 [facility] allergy allergy 2021- No .05mL Common extract extract 2[facility]30 [facility] 00:00: - [facility] 00 [facility] allergy allergy 2021- No .05mL Common extract extract 2[facility]30 [facility] 00:00: - [facility] 00 [facility] allergy allergy 2021- No .05mL Common extract extract 2[facility]30 [facility] 00:00: - [facility] 00 [facility] allergy allergy 2021- No .05mL Common extract extract 2[facility]30 [facility] 00:00: - [facility] 00 [facility] allergy allergy 2021- No .05mL Common extract extract 2[facility]30 [facility] 00:00: - [facility] 00 [facility] allergy allergy 2021- No .05mL Common extract extract 2[facility]30 [facility] 00:00: - [facility] 00 [facility] allergy allergy 2021- No .05mL Common extract extract 2[facility]30 [facility] 00:00: - [facility] 00 [facility] allergy allergy 2021- No .05mL Common extract extract 2[facility]30 [facility] 00:00: - [facility] 00 [facility] allergy allergy 2021- No .05mL Common extract extract 2[facility]30 [facility] 00:00: - [facility] 00 [facility] allergy allergy 2021- No .05mL Common extract extract 2[facility]30 [facility] 00:00: - [facility] 00 [facility] allergy allergy 2021- No .05mL Common extract extract 2[facility]30 [facility] 00:00: - [facility] 00 [facility] allergy allergy 2021- No .05mL Common extract extract 2[facility]30 [facility] 00:00: - [facility] 00 [facility] allergy allergy 2021- No .05mL Common extract extract 2[facility]30 [facility] 00:00: - [facility] 00 [facility] allergy allergy 2021- No .05mL Common extract extract 2[facility]30 [facility] 00:00: - [facility] 00 [facility] allergy allergy 2021- No .05mL Common extract extract 2[facility]30 [facility] 00:00: - [facility] 00 [facility] allergy allergy 2021- No .05mL Common extract extract 2[facility]30 [facility] 00:00: - CH[facility] allergy allergy 2021- No .05mL Common extract extract 2[facility]30 [facility] 00:00: - [facility] 00 [facility] allergy allergy 2021- No .05mL Common extract extract 2[facility]30 [facility] 00:00: - [facility] 00 [facility] allergy allergy 2021- No .05mL Common extract extract 2[facility]30 [facility] 00:00: - [facility] 00 [facility] allergy allergy 2021- No .05mL Common extract extract 2[facility]30 [facility] 00:00: - [facility] 00 [facility] allergy allergy 2021- No .05mL Common extract extract 2[facility]30 [facility] 00:00: - [facility] 00 [facility] allergy allergy 2021- No .05mL Common extract extract 2[facility]30 [facility] 00:00: - [facility] 00 [facility] allergy allergy 2021- No .05mL Common extract extract 2[facility]30 [facility] 00:00: - [facility] 00 [facility] allergy allergy 2021- No .05mL Common extract extract 2[facility] 00:00: - [facility] 00 [facility] allergy allergy 2021- No .05mL Common extract extract 2[facility] 00:00: - [facility] 00 [facility] allergy allergy 2021- No .05mL Common extract extract 2[facility]30 [facility] 00:00: - [facility] 00 [facility] allergy allergy 2021- No .05mL Common extract extract 2[facility] 00:00: - [facility] 00 [facility] allergy allergy 2021- No .05mL Common extract extract 2[facility] 00:00: - [facility] 00 [facility] allergy allergy 2021- No .05mL Common extract extract 2[facility] 00:00: - [facility] 00 [facility] allergy allergy 2021- No .05mL Common extract extract 2[facility] 00:00: - [facility] 00 [facility] allergy allergy 2021- No .05mL Common extract extract 2[facility] 00:00: - [facility] 00 [facility] allergy allergy 2021- No .05mL Common extract extract 2[facility] 00:00: - [facility] 00 [facility] allergy allergy 2021- No .05mL Common extract extract 2[facility] 00:00: - CH[facility] allergy allergy 2021- No .05mL Common extract extract 2[facility] 00:00: - [facility] 00 [facility] allergy allergy 2021- No .05mL Common extract extract 2[facility] 00:00: - CH[facility] allergy allergy 2021- No .05mL Common extract extract 2[facility] 00:00: - [facility] 00 [facility] allergy allergy 2021- No .05mL Common extract extract 2[facility] 00:00: - [facility] 00 [facility] allergy allergy 2021- No .05mL Common extract extract 2[facility] 00:00: - [facility] 00 [facility] allergy allergy 2021- No .05mL Common extract extract 2[facility] 00:00: - [facility] 00 [facility] allergy allergy 2021- No .05mL Common extract extract 2[facility] 00:00: - [facility] 00 [facility] allergy allergy 2021- No .05mL Common extract extract 2[facility] 00:00: - [facility] 00 [facility] allergy allergy 2021- No .05mL Common extract extract 2[facility] 00:00: - [facility] 00 [facility] allergy allergy 2021- No .05mL Common extract extract 2[facility] 00:00: - [facility] 00 [facility] allergy allergy 2021- No .05mL Common extract extract 2[facility] 00:00: - [facility] 00 [facility] allergy allergy 2021- No .05mL Common extract extract [facility] 00:00: - [facility] 00 [facility] allergy allergy 2021- No .05mL Common extract extract [facility] 00:00: - [facility] 00 [facility] allergy allergy 2021- No .05mL Common extract extract [facility] 00:00: - [facility] 00 [facility] allergy allergy 2021- No .05mL Common extract extract [facility] 00:00: - [facility] 00 [facility] allergy allergy 2021- No .05mL Common extract extract [facility] 00:00: - [facility] 00 [facility] allergy allergy 2021- No .05mL Common extract extract [facility] 00:00: - [facility] 00 [facility] allergy allergy 2021- No .05mL Common extract extract [facility] 00:00: - [facility] allergy allergy 2021- No .05mL Common extract extract [facility] 00:00: - [facility] 00 [facility] allergy allergy 2021- No .05mL Common extract extract [facility] 00:00: - [facility] 00 [facility] allergy allergy 2021- No .05mL Common extract extract [facility] 00:00: - [facility] 00 [facility] allergy allergy 2021- No .05mL Common extract extract [facility] 00:00: - [facility] 00 [facility] allergy allergy 2021- No .05mL Common extract extract [facility] 00:00: - [facility] 00 [facility] allergy allergy 2021- No .05mL Common extract extract [facility] 00:00: - [facility] 00 [facility] allergy allergy 2021- No .05mL Common extract extract [facility] 00:00: - [facility] 00 [facility] allergy allergy 2021- No .05mL Common extract extract [facility] 00:00: - [facility] 00 [facility] allergy allergy 2021- No .05mL Common extract extract [facility] 00:00: - [facility] 00 [facility] allergy allergy 2021- No .05mL Common extract extract [facility] 00:00: - [facility] 00 [facility] allergy allergy 2021- No .05mL Common extract extract [facility] 00:00: - [facility] 00 [facility] allergy allergy 2021- No .05mL Common extract extract [facility] 00:00: - [facility] 00 [facility] allergy allergy 2021- No .05mL Common extract extract [facility] 00:00: - [facility] 00 [facility] allergy allergy 2021- No .05mL Common extract extract [facility] 00:00: - [facility] 00 [facility] allergy allergy 2021- No .05mL Common extract extract [facility] 00:00: - [facility] 00 [facility] allergy allergy 2021- No .05mL Common extract extract [facility] 00:00: - [facility] 00 [facility] allergy allergy 2021- No .05mL Common extract extract [facility] 00:00: - [facility] 00 [facility] allergy allergy 2021- No .05mL Common extract extract [facility] 00:00: - [facility] 00 [facility] allergy allergy 2021- No .05mL [facility] extract extract [facility] 00:00: - [facility] 00 [facility] allergy allergy 2021- No .05mL [facility] extract extract [facility] 00:00: - [facility] 00 [facility] allergy allergy 2021- No .05mL Common extract extract [facility] 00:00: - [facility] 00 [facility] allergy allergy 2021- No .05mL [facility] extract extract [facility] 00:00: - [facility] 00 [facility] allergy allergy 2021- No .05mL Common extract extract [facility] 00:00: - [facility] 00 [facility] allergy allergy 2021- No .05mL [facility] extract extract [facility] 00:00: - [facility] 00 [facility] allergy allergy 2021- No .05mL Common extract extract [facility] 00:00: - [facility] 00 [facility] allergy allergy 2021- No .05mL Common extract extract [facility] 00:00: - [facility] 00 [facility] allergy allergy 2021- No .05mL Common extract extract [facility] 00:00: - [facility] 00 [facility] allergy allergy 2021- No .5mL Common extract extract [facility] 00:00: - [facility] 00 [facility] allergy allergy 2021- No .5mL Common extract extract [facility] 00:00: - [facility] 00 [facility] allergy allergy 2021- No .5mL Common extract extract [facility] 00:00: - [facility] 00 [facility] allergy allergy 2021- No .5mL Common extract extract [facility] 00:00: - [facility] 00 [facility] allergy allergy 2021-05 No .5mL Common extract extract [facility] 00:00: - [facility] 00 [facility] allergy allergy 2021- No .5mL Common extract extract [facility] 00:00: - [facility] 00 [facility] allergy allergy 2021-05 No .5mL Common extract extract [facility] 00:00: - [facility] 00 [facility] allergy allergy 2021-05 No .5mL Common extract extract [facility] 00:00: - [facility] 00 [facility] allergy allergy 2021-05 No .5mL Common extract extract [facility] 00:00: - [facility] 00 [facility] allergy allergy 2021-05 No .5mL Common extract extract [facility] 00:00: - [facility] 00 [facility] allergy allergy 2021- No .5mL Common extract extract [facility] 00:00: - [facility] 00 [facility] allergy allergy 2021- No .5mL Common extract extract [facility] 00:00: - [facility] 00 [facility] allergy allergy 2021- No .5mL Common extract extract [facility] 00:00: - [facility] 00 [facility] allergy allergy 2021- No .5mL Common extract extract [facility] 00:00: - [facility] 00 [facility] allergy allergy 2021- No .5mL Common extract extract [facility] 00:00: - [facility] 00 [facility] allergy allergy 2021- No .5mL Common extract extract [facility] 00:00: - [facility] 00 [facility] allergy allergy 2021- No .5mL Common extract extract [facility] 00:00: - [facility] 00 [facility] allergy allergy 2021-05 No .5mL Common extract extract [facility] 00:00: - [facility] 00 [facility] allergy allergy 2021-05 No .5mL Common extract extract [facility] 00:00: - [facility] 00 [facility] allergy allergy 2021-05 No .5mL Common extract extract [facility] 00:00: - [facility] 00 [facility] allergy allergy 2021-05 No .5mL Common extract extract [facility] 00:00: - [facility] 00 [facility] allergy allergy 2021-05 No .5mL Common extract extract [facility] 00:00: - [facility] 00 [facility] allergy allergy 2021-05 No .5mL Common extract extract [facility] 00:00: - [facility] 00 [facility] allergy allergy 2021-05 No .5mL Common extract extract [facility] 00:00: - [facility] allergy allergy 2021-05 No .5mL Common extract extract [facility] 00:00: - [facility] 00 [facility] allergy allergy 2021-05 No .5mL Common extract extract [facility] 00:00: - [facility] 00 [facility] allergy allergy 2021-05 No .5mL Common extract extract [facility] 00:00: - [facility] 00 [facility] allergy allergy 2021-05 No .5mL Common extract extract [facility] 00:00: - [facility] allergy allergy 2021-05 No .5mL Common extract extract [facility] 00:00: - [facility] 00 [facility] allergy allergy 2021-05 No .5mL Common extract extract [facility] 00:00: - [facility] 00 [facility] allergy allergy 2021-05 No .5mL [facility] extract extract [facility] 00:00: - [facility] 00 [facility] allergy allergy 2021-05 No .5mL Common extract extract [facility] 00:00: - [facility] 00 [facility] allergy allergy 2021-05 No .5mL Common extract extract [facility] 00:00: - [facility] 00 [facility] allergy allergy 2021- No .5mL Common extract extract [facility] 00:00: - [facility] 00 [facility] allergy allergy 2021-05 No .5mL Common extract extract [facility] 00:00: - [facility] 00 [facility] allergy allergy 2021-05 No .5mL Common extract extract [facility] 00:00: - [facility] 00 [facility] allergy allergy 2021-05 No .5mL Common extract extract [facility] 00:00: - [facility] 00 [facility] allergy allergy 2021-05 No .5mL Common extract extract [facility] 00:00: - [facility] 00 [facility] allergy allergy 2021-05 No .5mL Common extract extract [facility] 00:00: - [facility] 00 [facility] allergy allergy 2021-05 No .5mL [facility] extract extract [facility] 00:00: - [facility] 00 [facility] allergy allergy 2021-05 No .5mL Common extract extract [facility] 00:00: - [facility] 00 [facility] allergy allergy 2021-05 No .5mL [facility] extract extract [facility] 00:00: - [facility] 00 [facility] allergy allergy 2021-05 No .5mL [facility] extract extract [facility] 00:00: - [facility] 00 [facility] allergy allergy 2021-05 No .5mL [facility] extract extract [facility] 00:00: - [facility] 00 [facility] allergy allergy 2021-05 No .5mL Common extract extract [facility] 00:00: - [facility] 00 [facility] allergy allergy 2021- No .5mL [facility] extract extract [facility] 00:00: - [facility] 00 [facility] allergy allergy 2021- No .5mL [facility] extract extract [facility] 00:00: - [facility] 00 [facility] allergy allergy 2021- No .5mL [facility] extract extract [facility] 00:00: - [facility] 00 [facility] allergy allergy 2021- No .5mL [facility] extract extract [facility] 00:00: - [facility] 00 [facility] allergy allergy 2021- No .5mL [facility] extract extract [facility] 00:00: - [facility] 00 [facility] allergy allergy 2021- No .5mL [facility] extract extract [facility] 00:00: - [facility] 00 [facility] allergy allergy 2021-1 No .5mL [facility] extract extract [facility] 00:00: - [facility] 00 [facility] allergy allergy 2021-05 No .5mL [facility] extract extract [facility] 00:00: - [facility] 00 [facility] allergy allergy 2021-05 No .5mL Common extract extract [facility] 00:00: - [facility] 00 [facility] allergy allergy 2021-05 No .5mL [facility] extract extract [facility] 00:00: - [facility] 00 [facility] allergy allergy 2021-05 No .5mL [facility] extract extract [facility] 00:00: - [facility] 00 [facility] allergy allergy 2021-05 No .5mL [facility] extract extract [facility] 00:00: - [facility] 00 [facility] allergy allergy 2021-05 No .5mL [facility] extract extract [facility] 00:00: - [facility] 00 [facility] allergy allergy 2021-05 No .5mL [facility] extract extract [facility] 00:00: - [facility] 00 [facility] allergy allergy 2021-05 No .5mL [facility] extract extract [facility] 00:00: - [facility] 00 [facility] allergy allergy 2021-05 No .5mL [facility] extract extract [facility] 00:00: - [facility] 00 [facility] allergy allergy 2021-05 No .5mL [facility] extract extract [facility] 00:00: - [facility] 00 [facility] allergy allergy 2021-05 No .5mL Common extract extract [facility] 00:00: - [facility] 00 [facility] allergy allergy 2021-05 No .5mL [facility] extract extract [facility] 00:00: - [facility] 00 [facility] allergy allergy 2021- No .5mL Common extract extract [facility] 00:00: - [facility] 00 [facility] allergy allergy 2021- No .5mL Common extract extract [facility] 00:00: - [facility] 00 [facility] allergy allergy 2021- No .5mL Common extract extract [facility] 00:00: - [facility] 00 [facility] allergy allergy 2021- No .5mL Common extract extract [facility] 00:00: - [facility] 00 [facility] allergy allergy 2021- No .5mL Common extract extract [facility] 00:00: - [facility] 00 [facility] allergy allergy 2021-05 No .5mL [facility] extract extract [facility] 00:00: - [facility] 00 [facility] allergy allergy 2021-05 No .5mL Common extract extract [facility] 00:00: - [facility] 00 [facility] allergy allergy 2021-05 No .5mL [facility] extract extract [facility] 00:00: - [facility] 00 [facility] allergy allergy 2021-05 No .5mL Common extract extract [facility] 00:00: - [facility] 00 [facility] allergy allergy 2021-05 No .5mL [facility] extract extract [facility] 00:00: - [facility] 00 [facility] allergy allergy 2021-05 No .5mL Common extract extract [facility] 00:00: - [facility] 00 [facility] allergy allergy 2021-05 No .5mL [facility] extract extract [facility] 00:00: - [facility] 00 [facility] allergy allergy 2021-05 No .5mL Common extract extract [facility] 00:00: - [facility] 00 [facility] allergy allergy 2021-05 No .5mL Common extract extract [facility] 00:00: - [facility] 00 [facility] allergy allergy 2021-05 No .5mL Common extract extract [facility] 00:00: - [facility] 00 [facility] allergy allergy 2021- No .5mL Common extract extract [facility] 00:00: - [facility] 00 [facility] allergy allergy 2021- No .5mL Common extract extract [facility] 00:00: - [facility] 00 [facility] allergy allergy 2021- No .5mL Common extract extract [facility] 00:00: - [facility] 00 [facility] allergy allergy 2021- No .5mL [facility] extract extract [facility] 00:00: - [facility] 00 [facility] allergy allergy 2021- No .5mL Common extract extract [facility] 00:00: - [facility] 00 [facility] allergy allergy 2021- No .5mL Common extract extract [facility] 00:00: - [facility] 00 [facility] allergy allergy 2021- No .5mL Common extract extract [facility] 00:00: - [facility] 00 [facility] allergy allergy 2021-05 No .5mL Common extract extract [facility] 00:00: - [facility] 00 [facility] allergy allergy 2021-05 No .5mL Common extract extract [facility] 00:00: - [facility] 00 [facility] allergy allergy 2021-05 No .5mL Common extract extract [facility] 00:00: - [facility] 00 [facility] allergy allergy 2021-05 No .5mL Common extract extract [facility] 00:00: - [facility] 00 [facility] allergy allergy 2021-05 No .5mL Common extract extract [facility] 00:00: - [facility] 00 [facility] allergy allergy 2021-05 No .5mL [facility] extract extract [facility] 00:00: - [facility] 00 [facility] allergy allergy 2021-05 No .5mL Common extract extract [facility] 00:00: - [facility] 00 [facility] allergy allergy 2021-05 No .5mL Common extract extract [facility] 00:00: - [facility] 00 [facility] allergy allergy 2021-05 No .5mL Common extract extract [facility] 00:00: - [facility] 00 [facility] allergy allergy 2021-05 No .5mL Common extract extract [facility] 00:00: - [facility] 00 [facility] allergy allergy 2021-05 No .4mL Common extract extract [facility] 00:00: - [facility] 00 [facility] allergy allergy 2021-05 No .4mL Common extract extract [facility] 00:00: - [facility] 00 [facility] allergy allergy 2021- No .4mL Common extract extract [facility] 00:00: - [facility] 00 [facility] allergy allergy 2021-05 No .4mL Common extract extract [facility] 00:00: - [facility] 00 [facility] allergy allergy 2021- No .4mL Common extract extract [facility] 00:00: - [facility] 00 [facility] allergy allergy 2021- No .4mL [facility] extract extract [facility] 00:00: - [facility] 00 [facility] allergy allergy 2021- No .4mL Common extract extract [facility] 00:00: - [facility] 00 [facility] allergy allergy 2021-05 No .4mL Common extract extract [facility] 00:00: - [facility] 00 [facility] allergy allergy 2021-05 No .4mL Common extract extract [facility] 00:00: - [facility] 00 [facility] allergy allergy 2021-05 No .4mL Common extract extract [facility] 00:00: - [facility] 00 [facility] allergy allergy 2021-05 No .4mL Common extract extract [facility] 00:00: - [facility] 00 [facility] allergy allergy 2021-05 No .4mL Common extract extract [facility] 00:00: - [facility] 00 [facility] allergy allergy 2021-05 No .4mL Common extract extract [facility] 00:00: - [facility] 00 [facility] allergy allergy 2021-05 No .4mL Common extract extract [facility] 00:00: - [facility] 00 [facility] allergy allergy 2021-05 No .4mL [facility] extract extract [facility] 00:00: - [facility] 00 [facility] allergy allergy 2021-05 No .4mL Common extract extract [facility] 00:00: - [facility] 00 [facility] allergy allergy 2021-05 No .4mL [facility] extract extract [facility] 00:00: - [facility] 00 [facility] allergy allergy 2021-05 No .4mL Common extract extract [facility] 00:00: - [facility] 00 [facility] allergy allergy 2021-05 No .4mL [facility] extract extract [facility] 00:00: - [facility] 00 [facility] allergy allergy 2021-05 No .4mL Common extract extract [facility] 00:00: - [facility] 00 [facility] allergy allergy 2021-05 No .4mL Common extract extract [facility] 00:00: - [facility] 00 [facility] allergy allergy 2021-05 No .4mL Common extract extract [facility] 00:00: - [facility] 00 [facility] allergy allergy 2021-05 No .4mL Common extract extract [facility] 00:00: - [facility] 00 [facility] allergy allergy 2021- No .4mL Common extract extract [facility] 00:00: - [facility] 00 [facility] allergy allergy 2021 No .4mL Common extract extract [facility] 00:00: - [facility] 00 [facility] allergy allergy 2021-05 No .4mL Common extract extract [facility] 00:00: - [facility] 00 [facility] allergy allergy 2021-05 No .4mL Common extract extract [facility] 00:00: - [facility] 00 [facility] allergy allergy 2021-05 No .4mL [facility] extract extract [facility] 00:00: - [facility] 00 [facility] allergy allergy 2021-05 No .4mL Common extract extract [facility] 00:00: - [facility] 00 [facility] allergy allergy 2021-05 No .4mL Common extract extract [facility] 00:00: - [facility] 00 [facility] allergy allergy 2021-05 No .4mL Common extract extract [facility] 00:00: - [facility] 00 [facility] allergy allergy 2021-05 No .4mL Common extract extract [facility] 00:00: - [facility] 00 [facility] allergy allergy 2021-05 No .4mL Common extract extract [facility] 00:00: - [facility] 00 [facility] allergy allergy 2021-05 No .4mL [facility] extract extract [facility] 00:00: - [facility] 00 [facility] allergy allergy 2021-05 No .4mL Common extract extract [facility] 00:00: - [facility] 00 [facility] allergy allergy 2021-05 No .4mL [facility] extract extract [facility] 00:00: - [facility] 00 [facility] allergy allergy 2021-05 No .4mL Common extract extract [facility] 00:00: - [facility] 00 [facility] allergy allergy 2021-05 No .4mL [facility] extract extract [facility] 00:00: - [facility] 00 [facility] allergy allergy 2021-05 No .4mL Common extract extract [facility] 00:00: - [facility] 00 [facility] allergy allergy 2021-05 No .4mL Common extract extract [facility] 00:00: - [facility] 00 [facility] allergy allergy 2021-05 No .4mL Common extract extract [facility] 00:00: - [facility] 00 [facility] allergy allergy 2021- No .4mL Common extract extract [facility] 00:00: - [facility] 00 [facility] allergy allergy 2021-05 No .4mL Common extract extract [facility] 00:00: - [facility] 00 [facility] allergy allergy 2021-05 No .4mL Common extract extract [facility] 00:00: - [facility] 00 [facility] allergy allergy 2021-05 No .4mL Common extract extract [facility] 00:00: - [facility] 00 [facility] allergy allergy 2021-05 No .4mL Common extract extract [facility] 00:00: - [facility] 00 [facility] allergy allergy 2021-05 No .4mL [facility] extract extract [facility] 00:00: - [facility] 00 [facility] allergy allergy 2021-05 No .4mL Common extract extract [facility] 00:00: - [facility] 00 [facility] allergy allergy 2021-05 No .4mL [facility] extract extract [facility] 00:00: - [facility] 00 [facility] allergy allergy 2021-05 No .4mL Common extract extract [facility] 00:00: - [facility] 00 [facility] allergy allergy 2021-05 No .4mL [facility] extract extract [facility] 00:00: - [facility] 00 [facility] allergy allergy 2021-05 No .4mL Common extract extract [facility] 00:00: - [facility] 00 [facility] allergy allergy 2021-05 No .4mL [facility] extract extract [facility] 00:00: - [facility] 00 [facility] allergy allergy 2021-05 No .4mL Common extract extract [facility] 00:00: - [facility] 00 [facility] allergy allergy 2021- No .4mL [facility] extract extract [facility] 00:00: - [facility] 00 [facility] allergy allergy 2021-05 No .4mL Common extract extract [facility] 00:00: - [facility] 00 [facility] allergy allergy 2021- No .4mL Common extract extract [facility] 00:00: - [facility] 00 [facility] allergy allergy 2021- No .4mL Common extract extract [facility] 00:00: - [facility] 00 [facility] allergy allergy 2021- No .4mL [facility] extract extract [facility] 00:00: - [facility] 00 [facility] allergy allergy 2021-05 No .4mL [facility] extract extract [facility] 00:00: - [facility] 00 [facility] allergy allergy 2021-05 No .4mL Common extract extract [facility] 00:00: - [facility] 00 [facility] allergy allergy 2021-05 No .4mL [facility] extract extract [facility] 00:00: - [facility] 00 [facility] allergy allergy 2021-05 No .4mL Common extract extract [facility] 00:00: - [facility] 00 [facility] allergy allergy 2021-05 No .4mL [facility] extract extract [facility] 00:00: - [facility] 00 [facility] allergy allergy 2021-05 No .4mL [facility] extract extract [facility] 00:00: - [facility] 00 [facility] allergy allergy 2021-05 No .4mL [facility] extract extract [facility] 00:00: - CH[facility] allergy allergy 2021-05 No .4mL Common extract extract [facility] 00:00: - [facility] 00 [facility] allergy allergy 2021-05 No .4mL [facility] extract extract [facility] 00:00: - [facility] 00 [facility] allergy allergy 2021-05 No .4mL [facility] extract extract [facility] 00:00: - [facility] 00 [facility] allergy allergy 2021-05 No .4mL [facility] extract extract [facility] 00:00: - CH[facility] allergy allergy 2021-05 No .4mL [facility] extract extract [facility] 00:00: - [facility] 00 [facility] allergy allergy 2021- No .4mL [facility] extract extract [facility] 00:00: - [facility] 00 [facility] allergy allergy 2021-05 No .4mL [facility] extract extract [facility] 00:00: - [facility] 00 [facility] allergy allergy 2021- No .4mL [facility] extract extract [facility] 00:00: - [facility] 00 [facility] allergy allergy 2021- No .4mL [facility] extract extract [facility] 00:00: - [facility] 00 [facility] allergy allergy 2021- No .4mL [facility] extract extract [facility] 00:00: - [facility] 00 [facility] allergy allergy 2021-05 No .4mL [facility] extract extract [facility] 00:00: - [facility] 00 [facility] allergy allergy 2021-05 No .4mL [facility] extract extract [facility] 00:00: - [facility] 00 [facility] allergy allergy 2021-05 No .4mL [facility] extract extract [facility] 00:00: - [facility] 00 [facility] allergy allergy 2021-05 No .4mL [facility] extract extract [facility] 00:00: - [facility] 00 [facility] allergy allergy 2021-05 No .4mL [facility] extract extract [facility] 00:00: - [facility] 00 [facility] allergy allergy 2021-05 No .4mL [facility] extract extract [facility] 00:00: - [facility] 00 [facility] allergy allergy 2021-05 No .4mL [facility] extract extract [facility] 00:00: - [facility] 00 [facility] allergy allergy 2021-05 No .4mL [facility] extract extract [facility] 00:00: - [facility] 00 [facility] allergy allergy 2021-05 No .4mL [facility] extract extract [facility] 00:00: - [facility] 00 [facility] allergy allergy 2021-05 No .4mL [facility] extract extract [facility] 00:00: - [facility] 00 [facility] allergy allergy 2021-05 No .4mL [facility] extract extract [facility] 00:00: - [facility] 00 [facility] allergy allergy 2021-05 No .4mL [facility] extract extract [facility] 00:00: - [facility] 00 [facility] allergy allergy 2021-05 No .4mL [facility] extract extract [facility] 00:00: - [facility] 00 [facility] allergy allergy 2021-05 No .4mL [facility] extract extract [facility] 00:00: - [facility] 00 [facility] allergy allergy 2021-05 No .4mL [facility] extract extract [facility] 00:00: - [facility] 00 [facility] allergy allergy 2021-05 No .4mL [facility] extract extract [facility] 00:00: - [facility] 00 [facility] allergy allergy 2021- No .3mL [facility] extract extract [facility] 00:00: - [facility] 00 [facility] allergy allergy 2021- No .3mL [facility] extract extract [facility] 00:00: - [facility] 00 [facility] allergy allergy 2021- No .3mL [facility] extract extract [facility] 00:00: - [facility] 00 [facility] allergy allergy 2021-05 No .3mL [facility] extract extract [facility] 00:00: - [facility] 00 [facility] allergy allergy 2021- No .3mL [facility] extract extract [facility] 00:00: - [facility] 00 [facility] allergy allergy 2021- No .3mL [facility] extract extract [facility] 00:00: - [facility] 00 [facility] allergy allergy 2021-05 No .3mL Common extract extract [facility] 00:00: - [facility] 00 [facility] allergy allergy 2021- No .3mL [facility] extract extract [facility] 00:00: - [facility] 00 [facility] allergy allergy 2021- No .3mL Common extract extract 2- [facility]: - [facility] allergy allergy 2021- No .3mL Common extract extract 2- [facility] 00:00: - [facility] 00 [facility] allergy allergy 2021-05 No .3mL Common extract extract 2- [facility] 00:00: - [facility] 00 [facility] allergy allergy 2021- No .3mL Common extract extract 2- [facility] 00:00: - [facility] 00 [facility] allergy allergy 2021- No .3mL Common extract extract 2- [facility] 00:00: - [facility] 00 [facility] allergy allergy 2021- No .3mL Common extract extract 2- [facility] 00:00: - [facility] 00 [facility] allergy allergy 2021- No .3mL Common extract extract 2- [facility] 00:00: - [facility] 00 [facility] allergy allergy 2021- No .3mL Common extract extract 2- [facility] 00:00: - [facility] 00 [facility] allergy allergy 2021- No .3mL Common extract extract 2- [facility] 00:00: - [facility] 00 [facility] allergy allergy 2021- No .3mL Common extract extract 2- [facility] 00:00: - [facility] 00 [facility] allergy allergy 2021- No .3mL Common extract extract 2- [facility] 00:00: - [facility] 00 [facility] allergy allergy 2021- No .3mL Common extract extract 2- [facility] 00:00: - [facility] 00 [facility] allergy allergy 2021- No .3mL Common extract extract 2- [facility] 00:00: - [facility] 00 [facility] allergy allergy 2021- No .3mL Common extract extract 2- [facility] 00:00: - [facility] 00 [facility] allergy allergy 2021- No .3mL Common extract extract 2- [facility] 00:00: - [facility] 00 [facility] allergy allergy 2021- No .3mL Common extract extract 2- [facility] 00:00: - [facility] 00 [facility] allergy allergy 2021- No .3mL Common extract extract 2 [facility] 00:[facility]: - [facility] 00 [facility] allergy allergy 2021- No .3mL Common extract extract 2 [facility] 00:[facility]: - [facility] allergy allergy 2021- No .3mL Common extract extract 2- [facility] 00:00: - [facility] 00 [facility] allergy allergy 2021- No .3mL Common extract extract 2- [facility] 00:00: - [facility] 00 [facility] allergy allergy 2021- No .3mL Common extract extract 2- [facility] 00:00: - [facility] 00 [facility] allergy allergy 2021- No .3mL Common extract extract 2 [facility] 00:[facility]: - [facility] allergy allergy 2021- No .3mL Common extract extract 2- [facility] 00:00: - [facility] 00 [facility] allergy allergy 2021- No .3mL Common extract extract 2- [facility] 00:00: - [facility] 00 [facility] allergy allergy 2021- No .3mL Common extract extract 2- [facility] 00:00: - [facility] 00 [facility] allergy allergy 2021- No .3mL Common extract extract 2- [facility] 00:00: - [facility] 00 [facility] allergy allergy 2021- No .3mL Common extract extract 2- [facility] 00:00: - [facility] 00 [facility] allergy allergy 2021- No .3mL Common extract extract 2- [facility] 00:00: - [facility] 00 [facility] allergy allergy 2021- No .3mL Common extract extract 2- [facility] 00:00: - [facility] 00 [facility] allergy allergy 2021- No .3mL Common extract extract 2- [facility] 00:00: - [facility] 00 [facility] allergy allergy 2021- No .3mL Common extract extract 2- [facility] 00:00: - [facility] 00 [facility] allergy allergy 2021- No .3mL Common extract extract 2- [facility] 00:00: - [facility] 00 [facility] allergy allergy 2021- No .3mL Common extract extract 2- [facility] 00:00: - [facility] 00 [facility] allergy allergy 2021- No .3mL Common extract extract 2- [facility] 00:00: - [facility] allergy allergy 2021- No .3mL Common extract extract 2- [facility] 00:00: - [facility] allergy allergy 2021- No .3mL Common extract extract 2- [facility] 00:00: - [facility] allergy allergy 2021- No .3mL Common extract extract 2- [facility] 00:00: - [facility] allergy allergy 2021- No .3mL Common extract extract 2- [facility] 00:00: - [facility] allergy allergy 2021- No .3mL Common extract extract 2- [facility] 00:00: - [facility] allergy allergy 2021- No .3mL Common extract extract 2- [facility] 00:00: - [facility] 00 [facility] allergy allergy 2021- No .3mL Common extract extract 2- [facility] 00:00: - [facility] 00 [facility] allergy allergy 2021- No .3mL Common extract extract 2- [facility] 00:00: - [facility] 00 [facility] allergy allergy 2021- No .3mL Common extract extract 2- [facility] 00:00: - [facility] 00 [facility] allergy allergy 2021- No .3mL Common extract extract 2- [facility] 00:00: - [facility] 00 [facility] allergy allergy 2021- No .3mL Common extract extract 2- [facility] 00:00: - [facility] allergy allergy 2021-05 No .3mL Common extract extract 2-09 [facility] 00:00: - [facility] 00 [facility] allergy allergy 2021-05 No .3mL Common extract extract 2- [facility] 00:00: - [facility] 00 [facility] allergy allergy 2021-05 No .3mL Common extract extract 2- [facility] 00:00: - [facility] 00 [facility] allergy allergy 2021-05 No .3mL Common extract extract 2- [facility] 00:00: - [facility] 00 [facility] allergy allergy 2021-05 No .3mL Common extract extract 2- [facility] 00:00: - [facility] 00 [facility] allergy allergy 2021-05 No .3mL Common extract extract 2- [facility] 00:00: - [facility] 00 [facility] allergy allergy 2021-05 No .3mL Common extract extract 2- [facility] 00:00: - [facility] allergy allergy 2021-05 No .3mL Common extract extract 2- [facility] 00:00: - [facility] 00 [facility] allergy allergy 2021-05 No .3mL Common extract extract 2- [facility] 00:00: - [facility] 00 [facility] allergy allergy 2021-05 No .3mL Common extract extract 2- [facility] 00:00: - [facility] 00 [facility] allergy allergy 2021-05 No .3mL Common extract extract 2- [facility] 00:00: - [facility] 00 [facility] allergy allergy 2021- No .3mL Common extract extract 2- [facility] 00:00: - [facility] 00 [facility] allergy allergy 2021- No .3mL Common extract extract 2- [facility] 00:00: - [facility] 00 [facility] allergy allergy 2021- No .3mL Common extract extract 2- [facility] 00:00: - [facility] 00 [facility] allergy allergy 2021- No .3mL Common extract extract 2- [facility] 00:00: - [facility] 00 [facility] allergy allergy 2021- No .3mL Common extract extract 2- [facility] 00:00: - [facility] 00 [facility] allergy allergy 2021- No .3mL Common extract extract 2- [facility] 00:00: - [facility] 00 [facility] allergy allergy 2021-05 No .3mL Common extract extract 2-09 [facility] 00:00: - [facility] 00 [facility] allergy allergy 2021- No .3mL Common extract extract 2- [facility] 00:00: - [facility] 00 [facility] allergy allergy 2021-05 No .3mL Common extract extract 2- [facility] 00:00: - [facility] 00 [facility] allergy allergy 2021-05 No .3mL Common extract extract 2- [facility] 00:00: - [facility] 00 [facility] allergy allergy 2021-05 No .3mL Common extract extract 2- [facility] 00:00: - [facility] 00 [facility] allergy allergy 2021-05 No .3mL Common extract extract 2- [facility] 00:00: - [facility] 00 [facility] allergy allergy 2021-05 No .3mL Common extract extract 2- [facility] 00:00: - [facility] 00 [facility] allergy allergy 2021-05 No .3mL Common extract extract 2- [facility] 00:00: - [facility] allergy allergy 2021- No .3mL Common extract extract 2- [facility] 00:00: - [facility] 00 [facility] allergy allergy 2021-05 No .3mL Common extract extract 2- [facility] 00:00: - [facility] 00 [facility] allergy allergy 2021- No .3mL Common extract extract 2- [facility] 00:00: - [facility] 00 [facility] allergy allergy 2021- No .3mL Common extract extract 2- [facility] 00:00: - [facility] 00 [facility] allergy allergy 2021- No .3mL Common extract extract 2- [facility] 00:00: - [facility] 00 [facility] allergy allergy 2021- No .3mL Common extract extract 2- [facility] 00:00: - [facility] 00 [facility] allergy allergy 2021- No .3mL Common extract extract 2- [facility] 00:00: - [facility] 00 [facility] allergy allergy 2021- No .3mL Common extract extract 2- [facility] 00:00: - [facility] 00 [facility] allergy allergy 2021- No .3mL Common extract extract 2- [facility] 00:00: - [facility] 00 [facility] allergy allergy 2021- No .3mL Common extract extract 2- [facility] 00:00: - [facility] 00 [facility] allergy allergy 2021- No .3mL Common extract extract 2- [facility] 00:00: - [facility] 00 [facility] allergy allergy 2021- No .3mL Common extract extract 2- [facility] 00:00: - [facility] 00 [facility] allergy allergy 2021- No .3mL Common extract extract 2- [facility] 00:00: - [facility] 00 [facility] allergy allergy 2021- No .3mL Common extract extract 2- [facility] 00:00: - [facility] 00 [facility] allergy allergy 2021- No .3mL Common extract extract 2- [facility] 00:00: - [facility] 00 [facility] allergy allergy 2021- No .3mL Common extract extract 2 [facility] 00:[facility]: - [facility] 00 [facility] allergy allergy 2021- No .3mL Common extract extract 2- [facility] 00:00: - [facility] allergy allergy 2021- No .3mL Common extract extract 2- [facility] 00:00: - [facility] 00 [facility] allergy allergy 2021- No .3mL Common extract extract 2- [facility] 00:00: - [facility] 00 [facility] allergy allergy 2021- No .3mL Common extract extract 2- [facility] 00:00: - [facility] 00 [facility] allergy allergy 2021- No .3mL Common extract extract 2- [facility] 00:00: - [facility] 00 [facility] allergy allergy 2021- No .3mL Common extract extract 2- [facility] 00:00: - [facility] 00 [facility] allergy allergy 2021- No .2mL Common extract extract 2- [facility] 00:00: - [facility] 00 [facility] allergy allergy 2021- No .2mL Common extract extract 2- [facility] 00:00: - [facility] 00 [facility] allergy allergy 2021- No .2mL Common extract extract 2- [facility] 00:00: - [facility] 00 [facility] allergy allergy 2021- No .2mL Common extract extract 2- [facility] 00:00: - [facility] 00 [facility] allergy allergy 2021- No .2mL Common extract extract 2- [facility] 00:00: - [facility] 00 [facility] allergy allergy 2021-05 No .2mL Common extract extract 2- [facility] 00:00: - [facility] 00 [facility] allergy allergy 2021-05 No .2mL Common extract extract 2- [facility] 00:00: - [facility] 00 [facility] allergy allergy 2021-05 No .2mL Common extract extract 2- [facility] 00:00: - [facility] 00 [facility] allergy allergy 2021-05 No .2mL Common extract extract 2- [facility] 00:00: - [facility] 00 [facility] allergy allergy 2021-05 No .2mL Common extract extract 2- [facility] 00:00: - [facility] 00 [facility] allergy allergy 2021-05 No .2mL Common extract extract 2- [facility] 00:00: - [facility] 00 [facility] allergy allergy 2021-05 No .2mL Common extract extract 2- [facility] 00:00: - [facility] allergy allergy 2021-05 No .2mL Common extract extract 2- [facility] 00:00: - [facility] allergy allergy 2021-05 No .2mL Common extract extract 2- [facility] 00:00: - [facility] 00 [facility] allergy allergy 2021-05 No .2mL Common extract extract 2- [facility] 00:00: - [facility] 00 [facility] allergy allergy 2021-05 No .2mL Common extract extract 2- [facility] 00:00: - [facility] 00 [facility] allergy allergy 2021-05 No .2mL Common extract extract 2- [facility] 00:00: - [facility] 00 [facility] allergy allergy 2021-05 No .2mL Common extract extract 2- [facility] 00:00: - [facility] 00 [facility] allergy allergy 2021-05 No .2mL Common extract extract 2- [facility] 00:00: - [facility] 00 [facility] allergy allergy 2021-05 No .2mL Common extract extract 2- [facility] 00:00: - [facility] 00 [facility] allergy allergy 2021-05 No .2mL Common extract extract 2- [facility] 00:00: - [facility] 00 [facility] allergy allergy 2021- No .2mL Common extract extract 2- [facility] 00:00: - [facility] 00 [facility] allergy allergy 2021-05 No .2mL Common extract extract 2-02 [facility] 00:00: - [facility] 00 [facility] allergy allergy 2021-05 No .2mL Common extract extract 2- [facility] 00:00: - [facility] 00 [facility] allergy allergy 2021-05 No .2mL Common extract extract 2- [facility] 00:00: - [facility] 00 [facility] allergy allergy 2021-05 No .2mL Common extract extract 2- [facility] 00:00: - [facility] 00 [facility] allergy allergy 2021-05 No .2mL Common extract extract 2- [facility] 00:00: - [facility] 00 [facility] allergy allergy 2021-05 No .2mL Common extract extract 2- [facility] 00:00: - [facility] 00 [facility] allergy allergy 2021-05 No .2mL Common extract extract 2- [facility] 00:00: - [facility] 00 [facility] allergy allergy 2021-05 No .2mL Common extract extract 2- [facility] 00:00: - [facility] 00 [facility] allergy allergy 2021-05 No .2mL Common extract extract 2- [facility] 00:00: - [facility] 00 [facility] allergy allergy 2021-05 No .2mL Common extract extract 2- [facility] 00:00: - [facility] 00 [facility] allergy allergy 2021-05 No .2mL Common extract extract 2- [facility] 00:00: - [facility] 00 [facility] allergy allergy 2021-05 No .2mL Common extract extract 2- [facility] 00:00: - [facility] 00 [facility] allergy allergy 2021-05 No .2mL Common extract extract 2- [facility] 00:00: - [facility] 00 [facility] allergy allergy 2021-05 No .2mL Common extract extract 2- [facility] 00:00: - [facility] 00 [facility] allergy allergy 2021-05 No .2mL Common extract extract 2- [facility] 00:00: - [facility] 00 [facility] allergy allergy 2021-05 No .2mL Common extract extract 2- [facility] 00:00: - [facility] 00 [facility] allergy allergy 2021-05 No .2mL Common extract extract 2- [facility] 00:00: - [facility] 00 [facility] allergy allergy 2021-05 No .2mL Common extract extract 2-02 [facility] 00:00: - [facility] 00 [facility] allergy allergy 2021-05 No .2mL Common extract extract 2- [facility] 00:00: - [facility] 00 [facility] allergy allergy 2021-05 No .2mL Common extract extract 2- [facility] 00:00: - [facility] 00 [facility] allergy allergy 2021-05 No .2mL Common extract extract 2- [facility] 00:00: - [facility] 00 [facility] allergy allergy 2021-05 No .2mL Common extract extract 2- [facility] 00:00: - [facility] 00 [facility] allergy allergy 2021-05 No .2mL Common extract extract 2- [facility] 00:00: - [facility] 00 [facility] allergy allergy 2021-05 No .2mL Common extract extract 2- [facility] 00:00: - [facility] 00 [facility] allergy allergy 2021-05 No .2mL Common extract extract 2- [facility] 00:00: - [facility] 00 [facility] allergy allergy 2021-05 No .2mL Common extract extract 2- [facility] 00:00: - [facility] 00 [facility] allergy allergy 2021-05 No .2mL Common extract extract 2- [facility] 00:00: - [facility] 00 [facility] allergy allergy 2021-05 No .2mL Common extract extract 2- [facility] 00:00: - [facility] 00 [facility] allergy allergy 2021-05 No .2mL Common extract extract 2- [facility] 00:00: - [facility] 00 [facility] allergy allergy 2021-05 No .2mL Common extract extract 2- [facility] 00:00: - [facility] 00 [facility] allergy allergy 2021-05 No .2mL Common extract extract 2- [facility] 00:00: - [facility] 00 [facility] allergy allergy 2021-05 No .2mL Common extract extract 2- [facility] 00:00: - [facility] 00 [facility] allergy allergy 2021- No .2mL Common extract extract 2- [facility] 00:00: - [facility] 00 [facility] allergy allergy 2021-05 No .2mL Common extract extract 2- [facility] 00:00: - [facility] 00 [facility] allergy allergy 2021- No .2mL Common extract extract 2-02 [facility] 00:00: - [facility] 00 [facility] allergy allergy 2021-05 No .2mL Common extract extract 2- [facility] 00:00: - [facility] 00 [facility] allergy allergy 2021-05 No .2mL Common extract extract 2- [facility] 00:00: - [facility] 00 [facility] allergy allergy 2021-05 No .2mL Common extract extract 2- [facility] 00:00: - [facility] 00 [facility] allergy allergy 2021-05 No .2mL Common extract extract 2- [facility] 00:00: - [facility] 00 [facility] allergy allergy 2021-05 No .2mL Common extract extract 2- [facility] 00:00: - [facility] 00 [facility] allergy allergy 2021-05 No .2mL Common extract extract 2- [facility] 00:00: - [facility] 00 [facility] allergy allergy 2021-05 No .2mL Common extract extract 2- [facility] 00:00: - [facility] 00 [facility] allergy allergy 2021-05 No .2mL Common extract extract 2- [facility] 00:00: - [facility] 00 [facility] allergy allergy 2021-05 No .2mL Common extract extract 2- [facility] 00:00: - [facility] 00 [facility] allergy allergy 2021-05 No .2mL Common extract extract 2- [facility] 00:00: - [facility] 00 [facility] allergy allergy 2021-05 No .2mL Common extract extract 2- [facility] 00:00: - [facility] 00 [facility] allergy allergy 2021-05 No .2mL Common extract extract 2- [facility] 00:00: - [facility] 00 [facility] allergy allergy 2021-05 No .2mL Common extract extract 2- [facility] 00:00: - [facility] 00 [facility] allergy allergy 2021-05 No .2mL Common extract extract 2- [facility] 00:00: - [facility] 00 [facility] allergy allergy 2021-05 No .2mL Common extract extract 2- [facility] 00:00: - [facility] 00 [facility] allergy allergy 2021-05 No .2mL Common extract extract 2- [facility] 00:00: - [facility] 00 [facility] allergy allergy 2021- No .2mL Common extract extract 2-02 [facility] 00:00: - [facility] 00 [facility] allergy allergy 2021-05 No .2mL Common extract extract 2- [facility] 00:00: - [facility] 00 [facility] allergy allergy 2021-05 No .2mL Common extract extract 2- [facility] 00:00: - [facility] 00 [facility] allergy allergy 2021-05 No .2mL Common extract extract 2- [facility] 00:00: - [facility] 00 [facility] allergy allergy 2021-05 No .2mL Common extract extract 2- [facility] 00:00: - [facility] 00 [facility] allergy allergy 2021-05 No .2mL Common extract extract 2- [facility] 00:00: - [facility] 00 [facility] allergy allergy 2021-05 No .2mL Common extract extract 2- [facility] 00:00: - [facility] 00 [facility] allergy allergy 2021-05 No .2mL Common extract extract 2- [facility] 00:00: - [facility] 00 [facility] allergy allergy 2021-05 No .2mL Common extract extract 2- [facility] 00:00: - [facility] 00 [facility] allergy allergy 2021-05 No .2mL Common extract extract 2- [facility] 00:00: - [facility] 00 [facility] allergy allergy 2021-05 No .2mL Common extract extract 2- [facility] 00:00: - [facility] 00 [facility] allergy allergy 2021-05 No .2mL Common extract extract 2- [facility] 00:00: - [facility] 00 [facility] allergy allergy 2021-05 No .2mL Common extract extract 2- [facility] 00:00: - [facility] 00 [facility] allergy allergy 2021- No .2mL Common extract extract 2- [facility] 00:00: - [facility] 00 [facility] allergy allergy 2021- No .2mL Common extract extract 2- [facility] 00:00: - [facility] 00 [facility] allergy allergy 2021- No .2mL Common extract extract 2- [facility] 00:00: - [facility] 00 [facility] allergy allergy 2021- No .2mL Common extract extract 2- [facility] 00:00: - [facility] 00 [facility] allergy allergy 2021- No .2mL Common extract extract 2- [facility] 00:00: - [facility] 00 [facility] allergy allergy 2021-05 No .2mL Common extract extract 2-02 [facility] 00:00: - [facility] 00 [facility] allergy allergy 2021-05 No .2mL Common extract extract 2- [facility] 00:00: - [facility] 00 [facility] allergy allergy 2021-05 No .2mL Common extract extract 2- [facility] 00:00: - [facility] 00 [facility] allergy allergy 2021-05 No .2mL Common extract extract 2- [facility] 00:00: - [facility] 00 [facility] allergy allergy 2021-05 No .2mL Common extract extract 2- [facility] 00:00: - [facility] 00 [facility] allergy allergy 2021-05 No .2mL Common extract extract 2- [facility] 00:00: - [facility] 00 [facility] allergy allergy 2021-05 No .2mL Common extract extract 2- [facility] 00:00: - [facility] 00 [facility] allergy allergy 2021-05 No .2mL Common extract extract 2- [facility] 00:00: - [facility] 00 [facility] allergy allergy 2021-05 No .2mL Common extract extract 2- [facility] 00:00: - [facility] 00 [facility] allergy allergy 2021-05 No .2mL Common extract extract 2- [facility] 00:00: - [facility] 00 [facility] allergy allergy 2021-05 No .2mL Common extract extract 2- [facility] 00:00: - [facility] 00 [facility] allergy allergy 2021-05 No .2mL Common extract extract 2- [facility] 00:00: - [facility] 00 [facility] allergy allergy 2021-05 No .2mL Common extract extract 2- [facility] 00:00: - [facility] 00 [facility] allergy allergy 2021-05 No .1mL Common extract extract 1- [facility] 00:00: - [facility] 00 [facility] allergy allergy 2021-05 No .1mL Common extract extract 1- [facility] 00:00: - [facility] 00 [facility] allergy allergy 2021-05 No .1mL Common extract extract 1- [facility] 00:00: - [facility] 00 [facility] allergy allergy 2021-05 No .1mL Common extract extract 1- [facility] 00:00: - [facility] 00 [facility] allergy allergy 2021-05 No .1mL Common extract extract 1- [facility] 00:00: - [facility] 00 [facility] allergy allergy 2021-05 No .1mL Common extract extract 1- [facility] 00:00: - [facility] 00 [facility] allergy allergy 2021-05 No .1mL Common extract extract 1- [facility] 00:00: - [facility] 00 [facility] allergy allergy 2021-05 No .1mL Common extract extract 1- [facility] 00:00: - [facility] 00 [facility] allergy allergy 2021-05 No .1mL Common extract extract 1- [facility] 00:00: - [facility] 00 [facility] allergy allergy 2021-05 No .1mL Common extract extract 1- [facility] 00:00: - [facility] 00 [facility] allergy allergy 2021-05 No .1mL Common extract extract 05-24 [facility] 00:00: - [facility] 00 [facility] allergy allergy 2021-05 No .1mL Common extract extract 05-24 [facility] 00:00: - [facility] 00 [facility] allergy allergy 2021-05 No .1mL Common extract extract 05-24 [facility] 00:00: - [facility] 00 [facility] allergy allergy 2021-05 No .1mL Common extract extract 05-24 [facility] 00:[facility]: - [facility] 00 [facility] allergy allergy 2021-05 No .1mL Common extract extract 05-24 [facility] 00:00: - [facility] 00 [facility] allergy allergy 2021-05 No .1mL Common extract extract 05-24 [facility] 00:[facility]: - [facility] 00 [facility] allergy allergy 2021-05 No .1mL Common extract extract - [facility] 00:[facility]: - [facility] 00 [facility] allergy allergy 2021-05 No .1mL Common extract extract 1- [facility] 00:00: - [facility] 00 [facility] allergy allergy 2021-05 No .1mL Common extract extract 1- [facility] 00:00: - [facility] 00 [facility] allergy allergy 2021-05 No .1mL [facility] extract extract 1- [facility] 00:00: - [facility] 00 [facility] allergy allergy 2021-05 No .1mL [facility] extract extract 1- [facility] 00:00: - [facility] 00 [facility] allergy allergy 2021-05 No .1mL Common extract extract - [facility] 00:00: - [facility] 00 [facility] allergy allergy 2021-05 No .1mL Common extract extract - [facility] 00:00: - [facility] 00 [facility] allergy allergy 2021-05 No .1mL Common extract extract - [facility] 00:00: - [facility] 00 [facility] allergy allergy 2021-05 No .1mL Common extract extract - [facility] 00:00: - [facility] 00 [facility] allergy allergy 2021-05 No .1mL Common extract extract 05-24 [facility] 00:00: - [facility] 00 [facility] allergy allergy 2021-05 No .1mL Common extract extract - [facility] 00:00: - [facility] 00 [facility] allergy allergy 2021-05 No .1mL Common extract extract 05-24 [facility] 00:00: - [facility] 00 [facility] allergy allergy 2021-05 No .1mL Common extract extract 05-24 [facility] 00:[facility]: - [facility] 00 [facility] allergy allergy 2021-05 No .1mL Common extract extract 05-24 [facility] 00:[facility]: - [facility] 00 [facility] allergy allergy 2021-05 No .1mL Common extract extract 05-24 [facility] 00:[facility]: - [facility] 00 [facility] allergy allergy 2021-05 No .1mL Common extract extract 05-24 [facility] 00:[facility]: - [facility] 00 [facility] allergy allergy 2021-05 No .1mL Common extract extract 05-24 [facility] 00:[facility]: - [facility] 00 [facility] allergy allergy 2021-05 No .1mL Common extract extract - [facility] 00:00: - [facility] 00 [facility] allergy allergy 2021-05 No .1mL Common extract extract - [facility] 00:00: - [facility] 00 [facility] allergy allergy 2021- No .1mL Common extract extract - [facility] 00:00: - [facility] 00 [facility] allergy allergy 2021- No .1mL Common extract extract - [facility] 00:00: - [facility] 00 [facility] allergy allergy 2021- No .1mL Common extract extract 1- [facility] 00:00: - [facility] 00 [facility] allergy allergy 2021- No .1mL Common extract extract 05-24 [facility] 00:[facility]: - [facility] 00 [facility] allergy 2021-05 No .1mL Common extract extract - [facility]: - [facility] 00 [facility] allergy allergy 2021- No .1mL Common extract extract 05-24 [facility] 00:[facility]: - [facility] 00 [facility] allergy allergy 2021-05 No .1mL Common extract extract 05-24 [facility]: - [facility] 00 [facility] allergy allergy 2021-05 No .1mL Common extract extract 05-24 [facility]: - [facility] 00 [facility] allergy allergy 2021-05 No .1mL Common extract extract 05-24 [facility]: - [facility] 00 [facility] allergy allergy 2021-05 No .1mL Common extract extract 05-24 [facility]: - [facility] 00 [facility] allergy allergy 2021-05 No .1mL Common extract extract 05-24 [facility]: - [facility] 00 [facility] allergy allergy 2021-05 No .1mL Common extract extract 05-24 [facility]: - [facility] 00 [facility] allergy allergy 2021-05 No .1mL Common extract extract 05-24 [facility]: - [facility] 00 [facility] allergy allergy 2021-05 No .1mL Common extract extract 05-24 [facility]: - [facility] 00 [facility] allergy allergy 2021- No .1mL Common extract extract 05-24 [facility]: - [facility] 00 [facility] allergy allergy 2021- No .1mL Common extract extract 05-24 [facility]: - [facility] 00 [facility] allergy allergy 2021- No .1mL Common extract extract 05-24 [facility]: - [facility] 00 [facility] allergy allergy 2021- No .1mL Common extract extract 05-24 [facility]: - [facility] 00 [facility] allergy allergy 2021- No .1mL Common extract extract 05-24 [facility]: - [facility] 00 [facility] allergy allergy 2021- No .1mL Common extract extract - [facility]: - [facility] 00 [facility] allergy allergy 2021- No .1mL Common extract extract 05-24 [facility]: - [facility] 00 [facility] allergy allergy 2021-05 No .1mL Common extract extract 1- [facility]: - [facility] 00 [facility] allergy allergy 2021-05 No .1mL Common extract extract 1- [facility] 00:[facility]: - [facility] 00 [facility] allergy allergy 2021-05 No .1mL Common extract extract 1- [facility] 00:[facility]: - [facility] 00 [facility] allergy allergy 2021-05 No .1mL Common extract extract 1- [facility] 00:[facility]: - [facility] 00 [facility] allergy allergy 2021-05 No .1mL Common extract extract 1- [facility] 00:[facility]: - [facility] 00 [facility] allergy allergy 2021-05 No .1mL Common extract extract - [facility]: - [facility] 00 [facility] allergy allergy 2021-05 No .1mL Common extract extract 05-24 [facility]: - [facility] 00 [facility] allergy allergy 2021-05 No .1mL Common extract extract - [facility]: - [facility] 00 [facility] allergy allergy 2021-05 No .1mL Common extract extract 05-24 [facility]: - [facility] 00 [facility] allergy allergy 2021-05 No .1mL Common extract extract 05-24 [facility]: - [facility] 00 [facility] allergy allergy 2021-05 No .1mL Common extract extract 05-24 [facility]: - [facility] 00 [facility] allergy allergy 2021-05 No .1mL Common extract extract 1- [facility]: - [facility] 00 [facility] allergy allergy 2021-05 No .1mL Common extract extract - [facility]:00: - [facility] 00 [facility] allergy allergy 2021-05 No .1mL Common extract extract 1- [facility]: - [facility] 00 [facility] allergy allergy 2021-05 No .1mL Common extract extract 1- [facility] 00:[facility]: - [facility] 00 [facility] allergy allergy 2021-05 No .1mL Common extract extract 1- [facility]: - [facility] 00 [facility] allergy allergy 2021-05 No .1mL Common extract extract 1- [facility] 00:[facility]: - [facility] 00 [facility] allergy allergy 2021-05 No .1mL Common extract extract 1- [facility]: - [facility] 00 [facility] allergy allergy 2021-05 No .1mL Common extract extract 1- [facility]: - [facility] 00 [facility] allergy allergy 2021-05 No .1mL Common extract extract 1- [facility]: - [facility] 00 [facility] allergy allergy 2021-05 No .1mL Common extract extract 1- [facility] 00:[facility]: - [facility] 00 [facility] allergy allergy 2021-05 No .1mL Common extract extract 1- [facility] 00:[facility]: - [facility] 00 [facility] allergy allergy 2021-05 No .1mL Common extract extract - [facility] 00:00: - [facility] 00 [facility] allergy allergy 2021-05 No .1mL Common extract extract 05-24 [facility] 00:[facility]: - [facility] 00 [facility] allergy allergy 2021-05 No .1mL Common extract extract 05-24 [facility] 00:[facility]: - [facility] 00 [facility] allergy allergy 2021-05 No .1mL Common extract extract 05-24 [facility] 00:[facility]: - [facility] 00 [facility] allergy allergy 2021-05 No .1mL Common extract extract 05-24 [facility] 00:[facility]: - [facility] 00 [facility] allergy allergy 2021-05 No .1mL Common extract extract 05-24 [facility]: - [facility] 00 [facility] allergy allergy 2021-05 No .1mL Common extract extract 05-24 [facility]: - [facility] 00 [facility] allergy allergy 2021-05 No .1mL Common extract extract - [facility]:00: - [facility] 00 [facility] allergy allergy 2021-05 No .1mL Common extract extract 1- [facility]: - [facility] 00 [facility] allergy allergy 2021-05 No .1mL Common extract extract 1- [facility] 00:00: - [facility] 00 [facility] allergy allergy 2021-05 No .1mL Common extract extract 1- [facility] 00:[facility]: - [facility] 00 [facility] allergy allergy 2021-05 No .1mL Common extract extract 1- [facility] 00:00: - [facility] 00 [facility] allergy allergy 2021-05 No .1mL Common extract extract 1- [facility] 00:00: - [facility] 00 [facility] allergy allergy 2021-05 No .1mL Common extract extract - [facility]:00: - [facility] 00 [facility] allergy allergy 2021-05 No .1mL Common extract extract - [facility]:00: - [facility] 00 [facility] allergy allergy 2021-05 No .1mL Common extract extract - [facility]:00: - [facility] 00 [facility] allergy allergy 2021-05 No .1mL Common extract extract - [facility]:00: - [facility] 00 [facility] allergy allergy 2021-05 No .1mL Common extract extract - [facility] 00:00: - [facility] 00 [facility] allergy allergy 2021-05 No .1mL Common extract extract 05-24 [facility] 00:[facility]: - [facility] 00 [facility] allergy allergy 2021-05 No .1mL Common extract extract 05-24 [facility] 00:[facility]: - [facility] 00 [facility] allergy allergy 2021-05 No .1mL Common extract extract 05-24 [facility] 00:[facility]: - [facility] 00 [facility] allergy allergy 2021-05 No .1mL Common extract extract 05-24 [facility] 00:[facility]: - [facility] 00 [facility] allergy allergy 2021-05 No .1mL Common extract extract 05-24 [facility] 00:00: - [facility] 00 [facility] allergy allergy 2021-05 No .1mL Common extract extract 05-24 [facility] 00:[facility]: - [facility] 00 [facility] allergy allergy 2021- No .1mL Common extract extract - [facility] 00:00: - [facility] 00 [facility] allergy allergy 2021- No .1mL Common extract extract - [facility] 00:00: - [facility] 00 [facility] allergy allergy 2021- No .1mL Common extract extract - [facility] 00:00: - [facility] 00 [facility] allergy allergy 2021- No .1mL Common extract extract - [facility] 00:00: - [facility] 00 [facility] allergy allergy 2021- No .1mL Common extract extract 1- [facility] 00:[facility]: - [facility] 00 [facility] allergy allergy 2021- No .1mL Common extract extract 1-22 [facility] 00:[facility]: - [facility] 00 [facility] allergy allergy 2021- No .05mL Common extract extract 1-18 [facility] 00:[facility]: - [facility] 00 [facility] allergy allergy 2021- No .05mL Common extract extract 1-18 [facility] 00:[facility]: - [facility] 00 [facility] allergy allergy 2021- No .05mL Common extract extract 1-18 [facility] 00:[facility]: - [facility] 00 [facility] allergy allergy 2021- No .05mL Common extract extract 1-18 [facility] 00:[facility]: - [facility] 00 [facility] allergy allergy 2021-05 No .05mL Common extract extract 1-18 [facility] 00:[facility]: - [facility] 00 [facility] allergy allergy 2021- No .05mL Common extract extract 1-18 [facility] 00:[facility]: - [facility] 00 [facility] allergy allergy 2021-05 No .05mL Common extract extract 1-18 [facility] 00:[facility]: - [facility] 00 [facility] allergy allergy 2021-05 No .05mL Common extract extract 1-18 [facility] 00:[facility]: - [facility] 00 [facility] allergy allergy 2021-05 No .05mL Common extract extract 1-18 [facility] 00:[facility]: - [facility] 00 [facility] allergy allergy 2021-05 No .05mL Common extract extract 1-18 [facility] 00:[facility]: - [facility] 00 [facility] allergy allergy 2021- No .05mL Common extract extract 1-18 [facility] 00:[facility]: - [facility] 00 [facility] allergy allergy 2021- No .05mL Common extract extract 1-18 [facility] 00:[facility]: - [facility] 00 [facility] allergy allergy 2021- No .05mL Common extract extract 1-18 [facility] 00:[facility]: - [facility] 00 [facility] allergy allergy 2021- No .05mL Common extract extract 1-18 [facility] 00:[facility]: - [facility] 00 [facility] allergy allergy 2021- No .05mL Common extract extract 1-18 [facility] 00:[facility]: - [facility] 00 [facility] allergy allergy 2021- No .05mL Common extract extract 1-18 [facility] 00:[facility]: - [facility] 00 [facility] allergy allergy 2021- No .05mL Common extract extract 1-18 [facility] 00:[facility]: - [facility] 00 [facility] allergy allergy 2021-05 No .05mL Common extract extract 1-18 [facility] 00:[facility]: - [facility] 00 [facility] allergy allergy 2021-05 No .05mL Common extract extract 1-18 [facility] 00:[facility]: - [facility] 00 [facility] allergy allergy 2021-05 No .05mL Common extract extract 1-18 [facility] 00:[facility]: - [facility] 00 [facility] allergy allergy 2021-05 No .05mL Common extract extract 1-18 [facility] 00:[facility]: - [facility] 00 [facility] allergy allergy 2021-05 No .05mL Common extract extract 1-18 [facility]: - [facility] 00 [facility] allergy allergy 2021-05 No .05mL Common extract extract 1-18 [facility] 00:[facility]: - [facility] 00 [facility] allergy allergy 2021-05 No .05mL Common extract extract 1-18 [facility]: - [facility] allergy allergy 2021-05 No .05mL Common extract extract 1-18 [facility]: - [facility] 00 [facility] allergy allergy 2021-05 No .05mL Common extract extract 1-18 [facility] 00:[facility]: - [facility] 00 [facility] allergy allergy 2021-05 No .05mL Common extract extract 1-18 [facility] 00:[facility]: - [facility] 00 [facility] allergy allergy 2021-05 No .05mL Common extract extract 1-18 [facility]: - [facility] allergy allergy 2021-05 No .05mL Common extract extract 1-18 [facility]: - [facility] 00 [facility] allergy allergy 2021-05 No .05mL Common extract extract 1-18 [facility] 00:[facility]: - [facility] 00 [facility] allergy allergy 2021-05 No .05mL Common extract extract 1-18 [facility]: - [facility] 00 [facility] allergy allergy 2021- No .05mL Common extract extract 1-18 [facility]: - [facility] 00 [facility] allergy allergy 2021- No .05mL Common extract extract 1-18 [facility]: - [facility] 00 [facility] allergy allergy 2021- No .05mL Common extract extract 1-18 [facility]: - [facility] 00 [facility] allergy allergy 2021-05 No .05mL Common extract extract 1-18 [facility]: - [facility] 00 [facility] allergy allergy 2021- No .05mL Common extract extract 1-18 [facility] 00:[facility]: - [facility] 00 [facility] allergy allergy 2021- No .05mL Common extract extract 1-18 [facility]: - [facility] 00 [facility] allergy allergy 2021- No .05mL Common extract extract 1-18 [facility] 00:[facility]: - [facility] 00 [facility] allergy allergy 2021-05 No .05mL Common extract extract 1-18 [facility] 00:[facility]: - [facility] 00 [facility] allergy allergy 2021- No .05mL Common extract extract 1-18 [facility]: - [facility] 00 [facility] allergy allergy 2021-05 No .05mL Common extract extract 1-18 [facility] 00:[facility]: - [facility] 00 [facility] allergy allergy 2021-05 No .05mL Common extract extract 1-18 [facility] 00:[facility]: - [facility] 00 [facility] allergy allergy 2021-05 No .05mL Common extract extract 1-18 [facility] 00:[facility]: - [facility] 00 [facility] allergy allergy 2021- No .05mL Common extract extract 1-18 [facility]: - [facility] 00 [facility] allergy allergy 2021- No .05mL Common extract extract 1-18 [facility]: - [facility] 00 [facility] allergy allergy 2021- No .05mL Common extract extract 1-18 [facility]: - [facility] 00 [facility] allergy allergy 2021- No .05mL Common extract extract 1-18 [facility] 00:[facility]: - [facility] 00 [facility] allergy allergy 2021- No .05mL Common extract extract 1-18 [facility]:00: - [facility] 00 [facility] allergy allergy 2021- No .05mL Common extract extract 1-18 [facility] 00:[facility]: - [facility] 00 [facility] allergy allergy 2021- No .05mL Common extract extract 1-18 [facility] 00:00: - [facility] 00 [facility] allergy allergy 2021- No .05mL Common extract extract 1-18 [facility] 00:[facility]: - [facility] 00 [facility] allergy allergy 2021-1 No .05mL Common extract extract 1-18 [facility] 00:[facility]: - [facility] 00 [facility] allergy allergy 2021-05 No .05mL Common extract extract 1-18 [facility] 00:[facility]: - [facility] 00 [facility] allergy allergy 2021-05 No .05mL Common extract extract 1-18 [facility] 00:00: - [facility] 00 [facility] allergy allergy 2021-05 No .05mL Common extract extract 1-18 [facility] 00:[facility]: - [facility] 00 [facility] allergy allergy 2021-05 No .05mL Common extract extract 1-18 [facility] 00:00: - [facility] 00 [facility] allergy allergy 2021-05 No .05mL Common extract extract 1-18 [facility] 00:00: - [facility] 00 [facility] allergy allergy 2021-05 No .05mL Common extract extract 1-18 [facility] 00:00: - [facility] 00 [facility] allergy allergy 2021-05 No .05mL Common extract extract 1-18 [facility] 00:00: - [facility] 00 [facility] allergy allergy 2021-05 No .05mL Common extract extract 1-18 [facility] 00:00: - [facility] 00 [facility] allergy allergy 2021-05 No .05mL Common extract extract 1-18 [facility] 00:00: - [facility] 00 [facility] allergy allergy 2021-05 No .05mL Common extract extract 1-18 [facility] 00:00: - [facility] 00 [facility] allergy allergy 2021- No .05mL Common extract extract 1-18 [facility] 00:00: - [facility] 00 [facility] allergy allergy 2021- No .05mL Common extract extract 1-18 [facility] 00:00: - [facility] 00 [facility] allergy allergy 2021- No .05mL Common extract extract 1-18 [facility] 00:[facility]: - [facility] 00 [facility] allergy allergy 2021- No .05mL Common extract extract 1-18 [facility] 00:00: - [facility] 00 [facility] allergy allergy 2021- No .05mL Common extract extract 1-18 [facility] 00:00: - [facility] 00 [facility] allergy allergy 2021- No .05mL Common extract extract 1-18 [facility] 00:00: - [facility] 00 [facility] allergy allergy 2021- No .05mL Common extract extract 1-18 [facility] 00:00: - [facility] 00 [facility] allergy allergy 2021-05 No .05mL Common extract extract 1-18 [facility] 00:00: - [facility] 00 [facility] allergy allergy 2021-05 No .05mL Common extract extract 1-18 [facility] 00:[facility]: - [facility] 00 [facility] allergy allergy 2021-05 No .05mL Common extract extract 1-18 [facility] 00:00: - [facility] 00 [facility] allergy allergy 2021- No .05mL Common extract extract 1-18 [facility] 00:00: - [facility] 00 [facility] allergy allergy 2021-05 No .05mL Common extract extract 1-18 [facility] 00:00: - [facility] 00 [facility] allergy allergy 2021- No .05mL Common extract extract 1-18 [facility] 00:00: - [facility] 00 [facility] allergy allergy 2021-05 No .05mL Common extract extract 1-18 [facility] 00:00: - [facility] 00 [facility] allergy allergy 2021-05 No .05mL Common extract extract 1-18 [facility] 00:00: - [facility] 00 [facility] allergy allergy 2021-05 No .05mL Common extract extract 1-18 [facility] 00:00: - [facility] 00 [facility] allergy allergy 2021-05 No .05mL Common extract extract 1-18 [facility] 00:00: - [facility] 00 [facility] allergy allergy 2021- No .05mL Common extract extract 1-18 [facility] 00:[facility]: - [facility] 00 [facility] allergy allergy 2021- No .05mL Common extract extract 1-18 [facility] 00:00: - [facility] 00 [facility] allergy allergy 2021- No .05mL Common extract extract 1-18 [facility] 00:00: - [facility] 00 [facility] allergy allergy 2021- No .05mL Common extract extract 1-18 [facility] 00:[facility]: - [facility] 00 [facility] allergy allergy 2021- No .05mL Common extract extract 1-18 [facility] 00:[facility]: - [facility] 00 [facility] allergy allergy 2021- No .05mL Common extract extract 1-18 [facility] 00:[facility]: - [facility] 00 [facility] allergy allergy 2021- No .05mL Common extract extract 1-18 [facility] 00:00: - [facility] 00 [facility] allergy allergy 2021-05 No .05mL Common extract extract 1-18 [facility] 00:00: - [facility] 00 [facility] allergy allergy 2021- No .05mL Common extract extract 1-18 [facility] 00:[facility]: - [facility] 00 [facility] allergy allergy 2021- No .05mL Common extract extract 1-18 [facility] 00:00: - [facility] 00 [facility] allergy allergy 2021- No .05mL Common extract extract 1-18 [facility] 00:00: - [facility] 00 [facility] allergy allergy 2021-05 No .05mL Common extract extract 1-18 [facility] 00:00: - [facility] 00 [facility] allergy allergy 2021-05 No .05mL Common extract extract 1-18 [facility] 00:00: - [facility] 00 [facility] allergy allergy 2021- No .05mL Common extract extract 1-18 [facility] 00:00: - [facility] 00 [facility] allergy allergy 2021-05 No .05mL Common extract extract 1-18 [facility] 00:00: - [facility] 00 [facility] allergy allergy 2021-05 No .05mL Common extract extract 1-18 [facility] 00:00: - [facility] 00 [facility] allergy allergy 2021- No .05mL Common extract extract 1-18 [facility] 00:00: - [facility] 00 [facility] allergy allergy 2021- No .05mL Common extract extract 1-18 [facility] 00:00: - [facility] 00 [facility] allergy allergy 2021- No .05mL Common extract extract 1-18 [facility] 00:00: - [facility] 00 [facility] allergy allergy 2021- No .05mL Common extract extract 1-18 [facility] 00:00: - [facility] 00 [facility] allergy allergy 2021- No .05mL Common extract extract 1-18 [facility] 00:00: - [facility] 00 [facility] allergy allergy 2021- No .05mL Common extract extract 1-18 [facility] 00:00: - [facility] 00 [facility] allergy allergy 2021- No .05mL Common extract extract 1-18 [facility] 00:00: - [facility] 00 [facility] allergy allergy 2021- No .05mL Common extract extract 1-18 [facility] 00:00: - [facility] 00 [facility] allergy allergy 2021-05 No .05mL Common extract extract 1-18 [facility] 00:00: - [facility] 00 [facility] allergy allergy 2021- No .05mL Common extract extract 1-18 [facility] 00:00: - [facility] 00 [facility] allergy allergy 2021-05 No .05mL Common extract extract 1-18 [facility] 00:00: - [facility] 00 [facility] allergy allergy 2021- No .05mL Common extract extract 1-18 [facility] 00:00: - [facility] 00 [facility] allergy allergy 2021-05 No .05mL Common extract extract 1-18 [facility] 00:00: - [facility] 00 [facility] allergy allergy 2021-05 No .05mL Common extract extract 1-18 [facility] 00:00: - [facility] 00 [facility] allergy allergy 2021-05 No .05mL Common extract extract 1-18 [facility] 00:00: - [facility] allergy allergy 2021-05 No .05mL Common extract extract 1-18 [facility] 00:00: - [facility] allergy allergy 2021-05 No .05mL Common extract extract 1-18 [facility] 00:[facility]: - [facility] 00 [facility] allergy allergy 2021-05 No .5mL Common extract extract 1-11 [facility]: - [facility] 00 [facility] allergy allergy 2021- No .5mL Common extract extract 1-11 [facility]: - [facility] 00 [facility] allergy allergy 2021- No .5mL Common extract extract 1-11 [facility] 00:00: - [facility] allergy allergy 2021- No .5mL Common extract extract 1-11 [facility]: - [facility] 00 [facility] allergy allergy 2021- No .5mL Common extract extract 1-11 [facility]:00: - [facility] 00 [facility] allergy allergy 2021- No .5mL Common extract extract 1-11 [facility] 00:00: - [facility] 00 [facility] allergy allergy 2021- No .5mL Common extract extract 1-11 [facility] 00:[facility]: - [facility] 00 [facility] allergy allergy 2021- No .5mL Common extract extract 1-11 [facility] 00:00: - [facility] 00 [facility] allergy allergy 2021 No .5mL Common extract extract 1-11 [facility] 00:00: - [facility] 00 [facility] allergy allergy 2021-05 No .5mL Common extract extract 1-11 [facility] 00:00: - [facility] 00 [facility] allergy allergy 2021-05 No .5mL Common extract extract 1-11 [facility] 00:00: - [facility] 00 [facility] allergy allergy 2021-05 No .5mL Common extract extract 1-11 [facility] 00:00: - [facility] 00 [facility] allergy allergy 2021-05 No .5mL Common extract extract 1-11 [facility] 00:00: - [facility] 00 [facility] allergy allergy 2021-05 No .5mL Common extract extract 1-11 [facility] 00:00: - [facility] 00 [facility] allergy allergy 2021-05 No .5mL Common extract extract 1-11 [facility] 00:00: - [facility] 00 [facility] allergy allergy 2021-05 No .5mL Common extract extract 1-11 [facility] 00:00: - [facility] allergy allergy 2021-05 No .5mL Common extract extract 1-11 [facility] 00:00: - [facility] 00 [facility] allergy allergy 2021-05 No .5mL Common extract extract 1-11 [facility]:00: - [facility] 00 [facility] allergy allergy 2021-05 No .5mL Common extract extract 1-11 [facility] 00:[facility]: - [facility] 00 [facility] allergy allergy 2021-05 No .5mL Common extract extract 1-11 [facility]:00: - [facility] 00 [facility] allergy allergy 2021-05 No .5mL Common extract extract 1-11 [facility] 00:00: - [facility] 00 [facility] allergy allergy 2021- No .5mL Common extract extract 1-11 [facility] 00:00: - [facility] 00 [facility] allergy allergy 2021- No .5mL Common extract extract 1-11 [facility]:00: - [facility] 00 [facility] allergy allergy 2021- No .5mL Common extract extract 1-11 [facility] 00:00: - [facility] 00 [facility] allergy allergy 2021- No .5mL Common extract extract 1-11 [facility] 00:00: - [facility] 00 [facility] allergy allergy 2021- No .5mL Common extract extract 1-11 [facility] 00:00: - [facility] 00 [facility] allergy allergy 2021-05 No .5mL Common extract extract 1-11 [facility] 00:00: - [facility] 00 [facility] allergy allergy 2021-05 No .5mL Common extract extract 1-11 [facility] 00:00: - [facility] 00 [facility] allergy allergy 2021-05 No .5mL Common extract extract 1-11 [facility] 00:00: - [facility] 00 [facility] allergy allergy 2021- No .5mL Common extract extract 1-11 [facility] 00:00: - [facility] 00 [facility] allergy allergy 2021-05 No .5mL Common extract extract 1-11 [facility]:00: - [facility] 00 [facility] allergy allergy 2021-05 No .5mL Common extract extract 1-11 [facility] 00:00: - [facility] allergy allergy 2021-05 No .5mL Common extract extract 1-11 [facility] 00:00: - [facility] allergy allergy 2021-05 No .5mL Common extract extract 1-11 [facility]:00: - [facility] 00 [facility] allergy allergy 2021-05 No .5mL Common extract extract 1-11 [facility] 00:00: - [facility] 00 [facility] allergy allergy 2021-05 No .5mL Common extract extract 1-11 [facility] 00:00: - [facility] allergy allergy 2021- No .5mL Common extract extract 1-11 [facility]:00: - [facility] allergy allergy 2021- No .5mL Common extract extract 1-11 [facility]:00: - [facility] 00 [facility] allergy allergy 2021- No .5mL Common extract extract 1-11 [facility]:00: - [facility] 00 [facility] allergy allergy 2021- No .5mL Common extract extract 1-11 [facility]:00: - [facility] 00 [facility] allergy allergy 2021- No .5mL Common extract extract 1-11 [facility]:00: - [facility] 00 [facility] allergy allergy 2021- No .5mL Common extract extract 1-11 [facility]:00: - [facility] 00 [facility] allergy allergy 2021- No .5mL Common extract extract 1-11 [facility] 00:00: - [facility] 00 [facility] allergy allergy 2021- No .5mL Common extract extract 1-11 [facility]:00: - [facility] 00 [facility] allergy allergy 2021- No .5mL Common extract extract 1-11 [facility]:00: - [facility] 00 [facility] allergy allergy 2021- No .5mL Common extract extract 1-11 [facility] 00:00: - [facility] allergy allergy 2021- No .5mL Common extract extract 1-11 [facility] 00:00: - [facility] allergy allergy 2021-05 No .5mL Common extract extract 1-11 [facility]:00: - [facility] 00 [facility] allergy allergy 2021- No .5mL Common extract extract 1-11 [facility] 00:00: - [facility] allergy allergy 2021- No .5mL [facility] extract extract [facility] 00[facility]00: - [facility] allergy allergy 2021- No .5mL Common extract extract [facility] 00:00: - [facility] allergy allergy 2021- No .5mL Common extract extract [facility] 00[facility]00: - [facility] allergy allergy 2021- No .5mL Common extract extract [facility] 00:00: - [facility] allergy allergy 2021- No .5mL Common extract extract [facility] 00:00: - [facility] allergy allergy 2021- No .5mL Common extract extract [facility] 00:00: - [facility] 00 [facility] allergy allergy 2021- No .5mL Common extract extract [facility] 00:00: - [facility] 00 [facility] allergy allergy 2021- No .5mL Common extract extract [facility] 00:00: - [facility] 00 [facility] allergy allergy 2021- No .5mL Common extract extract [facility] 00:00: - [facility] 00 [facility] allergy allergy 2021- No .5mL Common extract extract [facility] 00:00: - [facility] 00 [facility] allergy allergy 2021- No .5mL Common extract extract [facility] 00:00: - [facility] allergy allergy 2021-05 No .5mL Common extract extract [facility] 00:00: - [facility] 00 [facility] allergy allergy 2021-05 No .5mL Common extract extract [facility] 00:00: - [facility] 00 [facility] allergy allergy 2021-05 No .5mL Common extract extract [facility] 00:00: - [facility] allergy allergy 2021-05 No .5mL Common extract extract [facility] 00:00: - [facility] 00 [facility] allergy allergy 2021-05 No .5mL Common extract extract [facility] 00:00: - [facility] allergy allergy 2021-05 No .5mL Common extract extract [facility] 00:00: - [facility] allergy allergy 2021-05 No .5mL Common extract extract [facility] 00:00: - [facility] allergy allergy 2021-05 No .5mL Common extract extract [facility] 00:00: - [facility] allergy allergy 2021-05 No .5mL Common extract extract [facility] 00:00: - [facility] allergy allergy 2021-05 No .5mL Common extract extract [facility] 00:00: - [facility] allergy allergy 2021-05 No .5mL Common extract extract [facility] 00:00: - [facility] allergy allergy 2021-05 No .5mL Common extract extract [facility] 00:00: - [facility] allergy allergy 2021-05 No .5mL Common extract extract [facility] 00:00: - [facility] allergy allergy 2021- No .5mL Common extract extract [facility] 00:00: - [facility] allergy allergy 2021- No .5mL Common extract extract [facility] 00:00: - [facility] allergy allergy 2021- No .5mL Common extract extract [facility] 00:00: - [facility] allergy allergy 2021- No .5mL Common extract extract [facility] 00:00: - [facility] allergy allergy 2021- No .5mL Common extract extract [facility] 00:00: - [facility] allergy allergy 2021-05 No .5mL Common extract extract [facility] 00:00: - [facility] allergy allergy 2021-05 No .5mL Common extract extract [facility] 00:00: - [facility] allergy allergy 2021-05 No .5mL Common extract extract [facility] 00:00: - [facility] allergy allergy 2021-05 No .5mL Common extract extract [facility] 00:00: - [facility] allergy allergy 2021-05 No .5mL Common extract extract [facility] 00:00: - [facility] allergy allergy 2021-05 No .5mL Common extract extract [facility] 00:00: - [facility] allergy allergy 2021-05 No .5mL Common extract extract [facility] 00:00: - [facility] allergy allergy 2021-05 No .5mL Common extract extract [facility] 00:00: - [facility] allergy allergy 2021-05 No .5mL Common extract extract [facility] 00:00: - [facility] allergy allergy 2021-05 No .5mL Common extract extract [facility] 00:00: - [facility] allergy allergy 2021-05 No .5mL Common extract extract [facility] 00:00: - [facility] allergy allergy 2021-05 No .5mL Common extract extract [facility] 00:00: - [facility] allergy allergy 2021-05 No .5mL Common extract extract [facility] 00:00: - [facility] allergy allergy 2021- No .5mL Common extract extract [facility] 00:00: - [facility] allergy allergy 2021- No .5mL Common extract extract [facility] 00:00: - [facility] allergy allergy 2021- No .5mL Common extract extract [facility] 00:00: - [facility] allergy allergy 2021- No .5mL Common extract extract [facility] 00:00: - [facility] allergy allergy 2021- No .5mL Common extract extract [facility] 00:00: - [facility] allergy allergy 2021-05 No .5mL Common extract extract [facility] 00:00: - [facility] allergy allergy 2021-05 No .5mL Common extract extract [facility] 00:00: - [facility] allergy allergy 2021- No .5mL Common extract extract [facility] 00:00: - [facility] allergy allergy 2021-05 No .5mL Common extract extract [facility] 00:00: - [facility] allergy allergy 2021- No .5mL Common extract extract [facility] 00:00: - [facility] allergy allergy 2021-05 No .5mL Common extract extract [facility] 00:00: - [facility] allergy allergy 2021-05 No .5mL Common extract extract [facility] 00:00: - [facility] allergy allergy 2021-05 No .5mL Common extract extract [facility] 00:00: - [facility] allergy allergy 2021- No .5mL Common extract extract [facility] 00:00: - [facility] allergy allergy 2021- No .5mL Common extract extract [facility] 00:00: - [facility] allergy allergy 2021- No .5mL Common extract extract [facility] 00:00: - [facility] allergy allergy 2021- No .5mL Common extract extract [facility] 00:00: - [facility] allergy allergy 2021- No .5mL Common extract extract [facility] 00:00: - [facility] allergy allergy 2021- No .5mL Common extract extract [facility] 00:00: - [facility] allergy allergy 2021- No .5mL Common extract extract [facility] 00:00: - [facility] allergy allergy 2021- No .5mL Common extract extract [facility] 00:00: - [facility] 00 [facility] allergy allergy 2021-05 No .5mL Common extract extract [facility] 00:00: - [facility] allergy allergy 2021-05 No .5mL Common extract extract [facility] 00:00: - [facility] 00 [facility] allergy allergy 2021-05 No .5mL Common extract extract [facility] 00:00: - [facility] allergy allergy 2021-05 No .5mL Common extract extract [facility] 00:00: - [facility] 00 [facility] allergy allergy 2021-05 No .4mL Common extract extract [facility] 00:00: - [facility] 00 [facility] allergy allergy 2021-05 No .4mL Common extract extract [facility] 00:00: - [facility] 00 [facility] allergy allergy 2021-05 No .4mL Common extract extract [facility] 00:00: - [facility] allergy allergy 2021-05 No .4mL Common extract extract [facility] 00:00: - [facility] allergy allergy 2021-05 No .4mL Common extract extract [facility] 00:00: - [facility] 00 [facility] allergy allergy 2021-05 No .4mL Common extract extract [facility] 00:00: - [facility] allergy allergy 2021-05 No .4mL Common extract extract [facility] 00:00: - [facility] 00 [facility] allergy allergy 2021-05 No .4mL Common extract extract [facility] 00:00: - [facility] 00 [facility] allergy allergy 2021-05 No .4mL Common extract extract [facility] 00:00: - [facility] 00 [facility] allergy allergy 2021-05 No .4mL Common extract extract [facility] 00:00: - [facility] 00 [facility] allergy allergy 2021-05 No .4mL Common extract extract [facility] 00:00: - [facility] 00 [facility] allergy allergy 2021-05 No .4mL Common extract extract [facility] 00:00: - [facility] allergy allergy 2021-05 No .4mL Common extract extract [facility] 00:00: - [facility] allergy allergy 2021-05 No .4mL Common extract extract [facility] 00:00: - [facility] 00 [facility] allergy allergy 2021-05 No .4mL Common extract extract [facility] 00:00: - [facility] allergy allergy 2021-05 No .4mL Common extract extract [facility] 00:00: - [facility] 00 [facility] allergy allergy 2021-05 No .4mL Common extract extract [facility] 00:00: - [facility] 00 [facility] allergy allergy 2021-05 No .4mL Common extract extract [facility] 00:00: - [facility] 00 [facility] allergy allergy 2021-05 No .4mL Common extract extract [facility] 00:00: - [facility] 00 [facility] allergy allergy 2021-05 No .4mL Common extract extract [facility] 00:00: - [facility] 00 [facility] allergy allergy 2021-05 No .4mL Common extract extract [facility] 00:00: - [facility] 00 [facility] allergy allergy 2021-05 No .4mL Common extract extract [facility] 00:00: - [facility] allergy allergy 2021-05 No .4mL Common extract extract [facility] 00:00: - [facility] 00 [facility] allergy allergy 2021-05 No .4mL Common extract extract [facility] 00:00: - [facility] 00 [facility] allergy allergy 2021-05 No .4mL Common extract extract [facility] 00:00: - [facility] 00 [facility] allergy allergy 2021-05 No .4mL Common extract extract [facility] 00:00: - [facility] 00 [facility] allergy allergy 2021-05 No .4mL Common extract extract [facility] 00:00: - [facility] 00 [facility] allergy allergy 2021-05 No .4mL Common extract extract [facility] 00:00: - [facility] 00 [facility] allergy allergy 2021-05 No .4mL Common extract extract [facility] 00:00: - [facility] 00 [facility] allergy allergy 2021-05 No .4mL Common extract extract [facility] 00:00: - [facility] allergy allergy 2021-05 No .4mL Common extract extract [facility] 00:00: - [facility] allergy allergy 2021-05 No .4mL Common extract extract [facility] 00:00: - [facility] allergy allergy 2021-05 No .4mL Common extract extract [facility] 00:00: - [facility] 00 [facility] allergy allergy 2021-05 No .4mL Common extract extract [facility] 00:00: - [facility] allergy allergy 2021-05 No .4mL Common extract extract [facility] 00:00: - [facility] allergy allergy 2021-05 No .4mL Common extract extract [facility] 00:00: - [facility] 00 [facility] allergy allergy 2021-05 No .4mL Common extract extract [facility] 00:00: - [facility] 00 [facility] allergy allergy 2021-05 No .4mL Common extract extract [facility] 00:00: - [facility] 00 [facility] allergy allergy 2021-05 No .4mL Common extract extract [facility] 00:00: - [facility] 00 [facility] allergy allergy 2021-05 No .4mL Common extract extract [facility] 00:00: - [facility] 00 [facility] allergy allergy 2021-05 No .4mL Common extract extract [facility] 00:00: - [facility] allergy allergy 2021-05 No .4mL Common extract extract [facility] 00:00: - [facility] 00 [facility] allergy allergy 2021-05 No .4mL Common extract extract [facility] 00:00: - [facility] allergy allergy 2021-05 No .4mL Common extract extract [facility] 00:00: - [facility] allergy allergy 2021-05 No .4mL Common extract extract [facility] 00:00: - [facility] 00 [facility] allergy allergy 2021-05 No .4mL Common extract extract [facility] 00:00: - [facility] 00 [facility] allergy allergy 2021-05 No .4mL Common extract extract [facility] 00:00: - [facility] 00 [facility] allergy allergy 2021-05 No .4mL Common extract extract [facility] 00:00: - [facility] allergy allergy 2021-05 No .4mL Common extract extract [facility] 00:00: - [facility] 00 [facility] allergy allergy 2021-05 No .4mL Common extract extract [facility] 00:00: - [facility] allergy allergy 2021-05 No .4mL Common extract extract [facility] 00:00: - [facility] allergy allergy 2021-05 No .4mL Common extract extract [facility] 00:00: - [facility] allergy allergy 2021-05 No .4mL Common extract extract [facility] 00:00: - [facility] allergy allergy 2021-05 No .4mL Common extract extract [facility] 00:00: - [facility] allergy allergy 2021-05 No .4mL Common extract extract [facility] 00:00: - [facility] 00 [facility] allergy allergy 2021-05 No .4mL Common extract extract [facility] 00:00: - [facility] 00 [facility] allergy allergy 2021-05 No .4mL Common extract extract [facility] 00:00: - [facility] allergy allergy 2021-05 No .4mL Common extract extract [facility] 00:00: - [facility] 00 [facility] allergy allergy 2021-05 No .4mL Common extract extract [facility] 00:00: - [facility] 00 [facility] allergy allergy 2021-05 No .4mL Common extract extract [facility] 00:00: - [facility] 00 [facility] allergy allergy 2021-05 No .4mL Common extract extract [facility] 00:00: - [facility] allergy allergy 2021-05 No .4mL Common extract extract [facility] 00:00: - [facility] 00 [facility] allergy allergy 2021-05 No .4mL Common extract extract [facility] 00:00: - [facility] 00 [facility] allergy allergy 2021-05 No .4mL Common extract extract [facility] 00:00: - [facility] 00 [facility] allergy allergy 2021- No .4mL Common extract extract [facility] 00:00: - [facility] 00 [facility] allergy allergy 2021-05 No .4mL Common extract extract [facility] 00:00: - [facility] 00 [facility] allergy allergy 2021-05 No .4mL Common extract extract [facility] 00:00: - [facility] 00 [facility] allergy allergy 2021-05 No .4mL Common extract extract [facility] 00:00: - [facility] 00 [facility] allergy allergy 2021-05 No .4mL Common extract extract [facility] 00:00: - [facility] 00 [facility] allergy allergy 2021-05 No .4mL Common extract extract [facility] 00:00: - [facility] 00 [facility] allergy allergy 2021-05 No .4mL Common extract extract [facility] 00:00: - [facility] 00 [facility] allergy allergy 2021-05 No .4mL Common extract extract [facility] 00:00: - [facility] 00 [facility] allergy allergy 2021-05 No .4mL Common extract extract [facility] 00:00: - [facility] 00 [facility] allergy allergy 2021-05 No .4mL Common extract extract [facility] 00:00: - [facility] 00 [facility] allergy allergy 2021-05 No .4mL Common extract extract [facility] 00:00: - [facility] 00 [facility] allergy allergy 2021-05 No .4mL Common extract extract [facility] 00:00: - [facility] 00 [facility] allergy allergy 2021-05 No .4mL Common extract extract [facility] 00:00: - [facility] 00 [facility] allergy allergy 2021-05 No .4mL Common extract extract [facility] 00:00: - [facility] 00 [facility] allergy allergy 2021-05 No .4mL Common extract extract [facility] 00:00: - [facility] allergy allergy 2021-05 No .4mL Common extract extract [facility] 00:00: - [facility] allergy allergy 2021-05 No .4mL Common extract extract [facility] 00:00: - [facility] 00 [facility] allergy allergy 2021-05 No .4mL Common extract extract [facility] 00:00: - [facility] 00 [facility] allergy allergy 2021-05 No .4mL Common extract extract [facility] 00:00: - [facility] 00 [facility] allergy allergy 2021-05 No .4mL Common extract extract [facility] 00:00: - [facility] 00 [facility] allergy allergy 2021-05 No .4mL Common extract extract [facility] 00:00: - [facility] 00 [facility] allergy allergy 2021-05 No .4mL Common extract extract [facility] 00:00: - [facility] 00 [facility] allergy allergy 2021-05 No .4mL Common extract extract [facility] 00:00: - [facility] 00 [facility] allergy allergy 2021-05 No .4mL Common extract extract [facility] 00:00: - [facility] 00 [facility] allergy allergy 2021-05 No .4mL Common extract extract [facility] 00:00: - [facility] allergy allergy 2021-05 No .4mL Common extract extract [facility] 00:00: - [facility] 00 [facility] allergy allergy 2021-05 No .4mL Common extract extract [facility] 00:00: - [facility] 00 [facility] allergy allergy 2021-05 No .4mL Common extract extract [facility] 00:00: - [facility] 00 [facility] allergy allergy 2021-05 No .4mL Common extract extract [facility] 00:00: - [facility] 00 [facility] allergy allergy 2021-05 No .4mL Common extract extract [facility] 00:00: - [facility] 00 [facility] allergy allergy 2021-05 No .4mL Common extract extract [facility] 00:00: - [facility] 00 [facility] allergy allergy 2021-05 No .4mL Common extract extract [facility] 00:00: - [facility] 00 [facility] allergy allergy 2021-05 No .4mL Common extract extract [facility] 00:00: - [facility] 00 [facility] allergy allergy 2021-05 No .4mL Common extract extract [facility] 00:00: - [facility] allergy allergy 2021-05 No .4mL Common extract extract [facility] 00:00: - [facility] 00 [facility] allergy allergy 2021-05 No .4mL Common extract extract [facility] 00:00: - [facility] 00 [facility] allergy allergy 2021-05 No .4mL Common extract extract [facility] 00:00: - [facility] 00 [facility] allergy allergy 2021-05 No .4mL Common extract extract [facility] 00:00: - [facility] 00 [facility] allergy allergy 2021-05 No .4mL Common extract extract [facility] 00:00: - [facility] 00 [facility] allergy allergy 2021-05 No .4mL Common extract extract [facility] 00:00: - [facility] 00 [facility] allergy allergy 2021-05 No .4mL Common extract extract [facility] 00:00: - [facility] 00 [facility] allergy allergy 2021-05 No .4mL Common extract extract [facility] 00:00: - [facility] 00 [facility] allergy allergy 2021-05 No .4mL Common extract extract [facility] 00:00: - [facility] allergy allergy 2021-05 No .4mL Common extract extract [facility] 00:00: - [facility] allergy allergy 2021-05 No .4mL Common extract extract [facility] 00:00: - [facility] allergy allergy 2021-05 No .4mL Common extract extract [facility] 00:00: - [facility] 00 [facility] allergy allergy 2021-05 No .4mL Common extract extract [facility] 00:00: - [facility] allergy allergy 2021-05 No .4mL Common extract extract [facility] 00:00: - [facility] 00 [facility] allergy allergy 2021-05 No .4mL Common extract extract [facility] 00:00: - [facility] 00 [facility] allergy allergy 2021-05 No .4mL Common extract extract [facility] 00:00: - [facility] 00 [facility] allergy allergy 2021-05 No .4mL Common extract extract [facility] 00:00: - [facility] allergy allergy 2021-05 No .4mL Common extract extract [facility] 00:00: - [facility] allergy allergy 2021-05 No .4mL Common extract extract [facility] 00:00: - [facility] allergy allergy 2021- No .4mL Common extract extract [facility] 00:00: - [facility] allergy allergy 2021- No .4mL Common extract extract [facility] 00:00: - [facility] allergy allergy 2021- No .4mL Common extract extract [facility] 00:00: - [facility] allergy allergy 2021- No .3mL Common extract extract [facility] 00:00: - [facility] allergy allergy 2021- No .3mL Common extract extract [facility] 00:00: - [facility] allergy allergy 2021- No .3mL Common extract extract [facility] 00:00: - [facility] allergy allergy 2021- No .3mL Common extract extract [facility] 00:00: - [facility] allergy allergy 2021- No .3mL Common extract extract [facility] 00:00: - [facility] allergy allergy 2021-05 No .3mL Common extract extract [facility] 00:00: - [facility] allergy allergy 2021- No .3mL Common extract extract [facility] 00:00: - [facility] allergy allergy 2021- No .3mL Common extract extract [facility] 00:00: - [facility] allergy allergy 2021- No .3mL Common extract extract [facility] 00:00: - [facility] allergy allergy 2021- No .3mL Common extract extract [facility] 00:00: - [facility] allergy allergy 2021- No .3mL Common extract extract [facility] 00:00: - [facility] allergy allergy 2021- No .3mL Common extract extract [facility] 00:00: - [facility] allergy allergy 2021- No .3mL Common extract extract [facility] 00:00: - [facility] allergy allergy 2021- No .3mL Common extract extract [facility] 00:00: - [facility] allergy allergy 2021- No .3mL Common extract extract [facility] 00:00: - [facility] allergy allergy 2021- No .3mL Common extract extract [facility] 00:00: - [facility] allergy allergy 2021- No .3mL Common extract extract [facility] 00:00: - [facility] allergy allergy 2021- No .3mL Common extract extract [facility] 00:00: - [facility] allergy allergy 2021- No .3mL Common extract extract [facility] 00:00: - [facility] allergy allergy 2021- No .3mL Common extract extract [facility] 00:00: - [facility] allergy allergy 2021- No .3mL Common extract extract [facility] 00:00: - [facility] allergy allergy 2021- No .3mL Common extract extract [facility] 00:00: - [facility] allergy allergy 2021- No .3mL Common extract extract [facility] 00:00: - [facility] allergy allergy 2021- No .3mL Common extract extract [facility] 00:00: - [facility] allergy allergy 2021- No .3mL Common extract extract [facility] 00:00: - [facility] allergy allergy 2021- No .3mL Common extract extract [facility] 00:00: - [facility] allergy allergy 2021- No .3mL Common extract extract [facility] 00:00: - [facility] allergy allergy 2021- No .3mL Common extract extract [facility] 00:00: - [facility] allergy allergy 2021- No .3mL Common extract extract [facility] 00:00: - [facility] allergy allergy 2021- No .3mL Common extract extract [facility] 00:00: - [facility] allergy allergy 2021- No .3mL Common extract extract [facility] 00:00: - [facility] allergy allergy 2021- No .3mL Common extract extract [facility] 00:00: - [facility] allergy allergy 2021- No .3mL Common extract extract [facility] 00:00: - [facility] allergy allergy 2021- No .3mL Common extract extract [facility] 00:00: - [facility] allergy allergy 2021- No .3mL Common extract extract [facility] 00:00: - [facility] allergy allergy 2021- No .3mL Common extract extract [facility] 00:00: - [facility] allergy allergy 2021- No .3mL Common extract extract [facility] 00:00: - [facility] allergy allergy 2021- No .3mL Common extract extract [facility] 00:00: - [facility] allergy allergy 2021- No .3mL Common extract extract [facility] 00:00: - [facility] allergy allergy 2021- No .3mL Common extract extract [facility] 00:00: - [facility] allergy allergy 2021- No .3mL Common extract extract [facility] 00:00: - [facility] allergy allergy 2021- No .3mL Common extract extract [facility] 00:00: - [facility] allergy allergy 2021- No .3mL Common extract extract [facility] 00:00: - [facility] allergy allergy 2021- No .3mL Common extract extract [facility] 00:00: - [facility] [facility]- No .3mL Common extract extract 0[facility] 00:00: - [facility] 00 [facility] allergy allergy 2021- No .3mL Common extract extract 0[facility]28 [facility] 00:00: - [facility] 00 [facility] allergy allergy 2021- No .3mL Common extract extract 0[facility] 00:00: - [facility] 00 [facility] allergy allergy 2021- No .3mL Common extract extract 0[facility] 00:[facility]: - [facility] 00 [facility] allergy allergy 2021- No .3mL Common extract extract 0[facility] 00:00: - [facility] 00 [facility] allergy allergy 2021- No .3mL Common extract extract 0[facility] 00:[facility]: - [facility] 00 [facility] allergy allergy 2021- No .3mL Common extract extract 0[facility] 00:00: - [facility] 00 [facility] allergy allergy 2021- No .3mL Common extract extract 0[facility] 00:00: - [facility] 00 [facility] allergy allergy 2021- No .3mL Common extract extract 0[facility] 00:00: - [facility] 00 [facility] allergy allergy 2021- No .3mL Common extract extract 0[facility] 00:00: - [facility] 00 [facility] allergy allergy 2021- No .3mL Common extract extract 0[facility] 00:00: - [facility] 00 [facility] allergy allergy 2021- No .3mL Common extract extract 0[facility]28 [facility] 00:00: - [facility] 00 [facility] allergy allergy 2021- No .3mL Common extract extract 0[facility] 00:00: - [facility] 00 [facility] allergy allergy 2021- No .3mL Common extract extract 0[facility]28 [facility] 00:00: - [facility] 00 [facility] allergy allergy 2021- No .3mL Common extract extract 0[facility]28 [facility] 00:00: - [facility] 00 [facility] allergy allergy 2021- No .3mL Common extract extract 0[facility] 00:00: - [facility] 00 [facility] allergy allergy 2021- No .3mL Common extract extract 0[facility]28 [facility] 00:00: - [facility] 00 [facility] allergy allergy 2021- No .3mL Common extract extract 0[facility]28 [facility] 00:00: - [facility] 00 [facility] allergy allergy 2021- No .3mL Common extract extract 0[facility] 00:00: - [facility] 00 [facility] allergy allergy 2021- No .3mL Common extract extract 0[facility] 00:00: - [facility] 00 [facility] allergy allergy 2021- No .3mL Common extract extract 0[facility]28 [facility] 00:00: - [facility] 00 [facility] allergy allergy 2021- No .3mL Common extract extract 0[facility] 00:00: - [facility] 00 [facility] allergy allergy 2021- No .3mL Common extract extract 0[facility] 00:00: - [facility] 00 [facility] allergy allergy 2021- No .3mL Common extract extract 0[facility] 00:00: - [facility] 00 [facility] allergy allergy 2021- No .3mL Common extract extract 0[facility] 00:00: - [facility] 00 [facility] allergy allergy 2021- No .3mL Common extract extract 0[facility] 00:00: - [facility] 00 [facility] allergy allergy 2021- No .3mL Common extract extract 0[facility] 00:00: - [facility] 00 [facility] allergy allergy 2021- No .3mL Common extract extract 0[facility] 00:00: - [facility] 00 [facility] allergy allergy 2021- No .3mL Common extract extract 0[facility] 00:00: - [facility] 00 [facility] allergy allergy 2021- No .3mL Common extract extract 0[facility] 00:00: - [facility] 00 [facility] allergy allergy 2021- No .3mL Common extract extract 0[facility] 00:00: - [facility] 00 [facility] allergy allergy 2021- No .3mL Common extract extract 0[facility] 00:00: - [facility] 00 [facility] allergy allergy 2021- No .3mL Common extract extract 0[facility] 00:00: - [facility] 00 [facility] allergy allergy 2021- No .3mL Common extract extract 0[facility] 00:00: - [facility] 00 [facility] allergy allergy 2021- No .3mL Common extract extract 0[facility] 00:00: - [facility] 00 [facility] allergy allergy 2021- No .3mL Common extract extract 0[facility] 00:00: - [facility] 00 [facility] allergy allergy 2021- No .3mL Common extract extract 0[facility] 00:00: - [facility] 00 [facility] allergy allergy 2021- No .3mL Common extract extract 0[facility] 00:00: - [facility] 00 [facility] allergy allergy 2021- No .3mL Common extract extract 0[facility] 00:00: - [facility] 00 [facility] allergy allergy 2021- No .3mL Common extract extract 0[facility] 00:00: - [facility] 00 [facility] allergy allergy 2021- No .3mL Common extract extract 0[facility] 00:00: - [facility] 00 [facility] allergy allergy 2021- No .3mL Common extract extract 0[facility] 00:00: - [facility] 00 [facility] allergy allergy 2021- No .3mL Common extract extract 0[facility] 00:00: - [facility] 00 [facility] allergy allergy 2021- No .3mL Common extract extract 0[facility] 00:00: - [facility] 00 [facility] allergy allergy 2021- No .3mL Common extract extract 0[facility] 00:00: - [facility] 00 [facility] allergy allergy 2021- No .3mL Common extract extract 0[facility] 00:00: - [facility] 00 [facility] allergy allergy 2021- No .3mL Common extract extract 0[facility] 00:00: - [facility] 00 [facility] allergy allergy 2021- No .3mL Common extract extract 0[facility] 00:00: - [facility] 00 [facility] allergy allergy 2021- No .3mL Common extract extract 0[facility] 00:00: - [facility] 00 [facility] allergy allergy 2021- No .3mL Common extract extract 0[facility] 00:00: - [facility] 00 [facility] allergy allergy 2021- No .3mL Common extract extract 0[facility] 00:00: - [facility] 00 [facility] allergy allergy 2021- No .3mL Common extract extract 0[facility] 00:00: - [facility] 00 [facility] allergy allergy 2021- No .3mL Common extract extract 0[facility] 00:00: - [facility] 00 [facility] allergy allergy 2021- No .3mL Common extract extract 0[facility] 00:00: - [facility] 00 [facility] allergy allergy 2021- No .3mL Common extract extract 0[facility] 00:00: - [facility] 00 [facility] allergy allergy 2021- No .3mL Common extract extract 0[facility] 00:00: - [facility] 00 [facility] allergy allergy 2021-05 No .3mL Common extract extract 0[facility] 00:00: - [facility] 00 [facility] allergy allergy 2021- No .3mL Common extract extract 0[facility] 00:00: - [facility] 00 [facility] allergy allergy 2021- No .3mL Common extract extract 0[facility] 00:00: - [facility] 00 [facility] allergy allergy 2021-05 No .3mL Common extract extract 0[facility] 00:00: - [facility] 00 [facility] allergy allergy 2021- No .3mL Common extract extract 0[facility] 00:00: - [facility] 00 [facility] allergy allergy 2021- No .3mL Common extract extract 0[facility] 00:00: - [facility] 00 [facility] allergy allergy 2021-05 No .3mL Common extract extract 0[facility] 00:00: - [facility] 00 [facility] allergy allergy 2021-05 No .3mL Common extract extract 0[facility] 00:00: - [facility] 00 [facility] allergy allergy 2021- No .3mL Common extract extract 0[facility] 00:00: - [facility] 00 [facility] allergy allergy 2021-05 No .3mL Common extract extract 0[facility] 00:00: - [facility] 00 [facility] allergy allergy 2021- No .3mL Common extract extract 0[facility] 00:00: - [facility] 00 [facility] allergy allergy 2021- No .3mL Common extract extract 0[facility] 00:00: - [facility] 00 [facility] allergy allergy 2021- No .3mL Common extract extract 0[facility] 00:00: - [facility] 00 [facility] allergy allergy 2021- No .3mL Common extract extract 0[facility] 00:00: - [facility] 00 [facility] allergy allergy 2021- No .3mL Common extract extract 0[facility] 00:00: - [facility] 00 [facility] allergy allergy 2021- No .3mL Common extract extract 0[facility] 00:00: - [facility] 00 [facility] allergy allergy 2021- No .3mL Common extract extract 0[facility] 00:00: - [facility] 00 [facility] allergy allergy 2021- No .3mL Common extract extract 0[facility] 00:00: - [facility] 00 [facility] allergy allergy 2021- No .3mL Common extract extract 0[facility] 00:00: - [facility] 00 [facility] allergy allergy 2021- No .3mL Common extract extract 0[facility] 00:00: - [facility] 00 [facility] allergy allergy 2021- No .3mL Common extract extract 0[facility] 00:00: - [facility] 00 [facility] allergy allergy 2021- No .3mL Common extract extract 0[facility] 00:00: - [facility] 00 [facility] allergy allergy 2021- No .3mL Common extract extract 0[facility] 00:00: - [facility] 00 [facility] allergy allergy 2021- No .3mL Common extract extract 0[facility] 00:00: - [facility] 00 [facility] allergy allergy 2021- No .05mL Common extract extract 0[facility] 00:00: - [facility] 00 [facility] allergy allergy 2021- No .05mL Common extract extract 0[facility] 00:00: - [facility] 00 [facility] allergy allergy 2021- No .05mL Common extract extract 0[facility] 00:00: - [facility] 00 [facility] allergy allergy 2021- No .05mL [facility] extract extract 0[facility] 00:00: - [facility] 00 [facility] allergy allergy 2021- No .05mL Common extract extract 0[facility] 00:00: - [facility] 00 [facility] allergy allergy 2021- No .05mL [facility] extract extract 0[facility] 00:00: - [facility] 00 [facility] allergy allergy 2021- No .05mL [facility] extract extract 0[facility] 00:00: - [facility] 00 [facility] allergy allergy 2021- No .05mL [facility] extract extract 0[facility] 00:00: - [facility] 00 [facility] allergy allergy 2021- No .05mL Common extract extract 0[facility]21 [facility] 00:00: - [facility] 00 [facility] allergy allergy 2021- No .05mL [facility] extract extract 0[facility] 00:00: - [facility] 00 [facility] allergy allergy 2021- No .05mL Common extract extract 0[facility] 00:00: - [facility] 00 [facility] allergy allergy 2021- No .05mL Common extract extract 0[facility] 00:00: - [facility] 00 [facility] allergy allergy 2021- No .05mL Common extract extract 0[facility] 00:00: - [facility] 00 [facility] allergy allergy 2021- No .05mL Common extract extract 0[facility] 00:00: - [facility] 00 [facility] allergy allergy 2021- No .05mL Common extract extract 0[facility] 00:00: - [facility] 00 [facility] allergy allergy 2021- No .05mL Common extract extract 0[facility] 00:00: - [facility] 00 [facility] allergy allergy 2021- No .05mL Common extract extract 0[facility]21 [facility] 00:00: - [facility] 00 [facility] allergy allergy 2021- No .05mL Common extract extract 0[facility] 00:00: - [facility] 00 [facility] allergy allergy 2021- No .05mL Common extract extract 0[facility] 00:00: - [facility] 00 [facility] allergy allergy 2021- No .05mL Common extract extract 0[facility]21 [facility] 00:00: - [facility] 00 [facility] allergy allergy 2021- No .05mL Common extract extract 0[facility] 00:00: - [facility] 00 [facility] allergy allergy 2021- No .05mL Common extract extract 0[facility] 00:00: - [facility] 00 [facility] allergy allergy 2021- No .05mL Common extract extract 0[facility] 00:00: - [facility] 00 [facility] allergy allergy 2021- No .05mL Common extract extract 0[facility]21 [facility] 00:00: - [facility] 00 [facility] allergy allergy 2021- No .05mL Common extract extract 0[facility] 00:00: - [facility] 00 [facility] allergy allergy 2021- No .05mL Common extract extract 0[facility]21 [facility] 00:00: - [facility] 00 [facility] allergy allergy 2021- No .05mL Common extract extract 0[facility]21 [facility] 00:00: - [facility] 00 [facility] allergy allergy 2021- No .05mL Common extract extract 0[facility] 00:00: - [facility] 00 [facility] allergy allergy 2021- No .05mL Common extract extract 0[facility]21 [facility] 00:00: - [facility] 00 [facility] allergy allergy 2021- No .05mL Common extract extract 0[facility] 00:00: - [facility] 00 [facility] allergy allergy 2021- No .05mL Common extract extract 0[facility] 00:00: - [facility] 00 [facility] allergy allergy 2021- No .05mL Common extract extract 0[facility] 00:00: - [facility] 00 [facility] allergy allergy 2021- No .05mL Common extract extract 0[facility] 00:00: - [facility] 00 [facility] allergy allergy 2021- No .05mL Common extract extract 0[facility] 00:00: - [facility] 00 [facility] allergy allergy 2021- No .05mL Common extract extract 0[facility]21 [facility] 00:00: - [facility] 00 [facility] allergy allergy 2021- No .05mL Common extract extract 0[facility] 00:00: - [facility] 00 [facility] allergy allergy 2021- No .05mL Common extract extract 0[facility]21 [facility] 00:00: - [facility] 00 [facility] allergy allergy 2021- No .05mL Common extract extract 0[facility]21 [facility] 00:00: - [facility] 00 [facility] allergy allergy 2021- No .05mL Common extract extract 0[facility]21 [facility] 00:00: - [facility] 00 [facility] allergy allergy 2021- No .05mL Common extract extract 0[facility]21 [facility] 00:00: - [facility] 00 [facility] allergy allergy 2021- No .05mL Common extract extract 0[facility]21 [facility] 00:00: - [facility] 00 [facility] allergy allergy 2021- No .05mL Common extract extract 0[facility]21 [facility] 00:00: - [facility] 00 [facility] allergy allergy 2021- No .05mL Common extract extract 0[facility] 00:00: - [facility] 00 [facility] allergy allergy 2021- No .05mL Common extract extract 0[facility]21 [facility] 00:00: - [facility] 00 [facility] allergy allergy 2021- No .05mL Common extract extract 0[facility]21 [facility] 00:00: - [facility] 00 [facility] allergy allergy 2021- No .05mL Common extract extract 0[facility]21 [facility] 00:00: - [facility] 00 [facility] allergy allergy 2021- No .05mL Common extract extract 0[facility]21 [facility] 00:00: - [facility] 00 [facility] allergy allergy 2021- No .05mL Common extract extract 0[facility] 00:00: - [facility] 00 [facility] allergy allergy 2021- No .05mL Common extract extract 0[facility] 00:00: - [facility] 00 [facility] allergy allergy 2021- No .05mL Common extract extract 0[facility]21 [facility] 00:00: - [facility] 00 [facility] allergy allergy 2021- No .05mL Common extract extract 0[facility] 00:00: - [facility] 00 [facility] allergy allergy 2021- No .05mL Common extract extract 0[facility] 00:00: - [facility] 00 [facility] allergy allergy 2021- No .05mL Common extract extract 0[facility]21 [facility] 00:00: - [facility] 00 [facility] allergy allergy 2021- No .05mL [facility] extract extract 0[facility] 00:00: - [facility] 00 [facility] allergy allergy 2021- No .05mL Common extract extract 0[facility] 00:00: - [facility] 00 [facility] allergy allergy 2021- No .05mL [facility] extract extract 0[facility] 00:00: - [facility] 00 [facility] allergy allergy 2021- No .05mL [facility] extract extract 0[facility]21 [facility] 00:00: - [facility] 00 [facility] allergy allergy 2021- No .05mL [facility] extract extract 0[facility] 00:00: - [facility] 00 [facility] allergy allergy 2021- No .05mL [facility] extract extract 0[facility] 00:00: - [facility] 00 [facility] allergy allergy 2021- No .05mL [facility] extract extract 0[facility] 00:00: - [facility] 00 [facility] allergy allergy 2021- No .05mL [facility] extract extract 0[facility] 00:00: - [facility] 00 [facility] allergy allergy 2021- No .05mL Common extract extract 0[facility] 00:00: - [facility] 00 [facility] allergy allergy 2021- No .05mL [facility] extract extract 0[facility] 00:00: - [facility] 00 [facility] allergy allergy 2021- No .05mL [facility] extract extract 0[facility] 00:00: - [facility] 00 [facility] allergy allergy 2021- No .05mL [facility] extract extract 0[facility] 00:00: - [facility] 00 [facility] allergy allergy 2021- No .05mL [facility] extract extract 0[facility] 00:00: - [facility] 00 [facility] allergy allergy 2021- No .05mL [facility] extract extract 0[facility] 00:00: - [facility] 00 [facility] allergy allergy 2021- No .05mL [facility] extract extract 0[facility] 00:00: - [facility] 00 [facility] allergy allergy 2021- No .05mL [facility] extract extract 0[facility] 00:00: - [facility] 00 [facility] allergy allergy 2021- No .05mL [facility] extract extract 0[facility] 00:00: - [facility] 00 [facility] allergy allergy 2021- No .05mL [facility] extract extract 0[facility] 00:00: - [facility] 00 [facility] allergy allergy 2021- No .05mL [facility] extract extract 0[facility] 00:00: - [facility] 00 [facility] allergy allergy 2021- No .05mL [facility] extract extract 0[facility]21 [facility] 00:00: - [facility] 00 [facility] allergy allergy 2021- No .05mL [facility] extract extract 0[facility] 00:00: - [facility] 00 [facility] allergy allergy 2021- No .05mL [facility] extract extract 0[facility] 00:00: - [facility] 00 [facility] allergy allergy 2021- No .05mL [facility] extract extract 0[facility] 00:00: - [facility] 00 [facility] allergy allergy 2021- No .05mL [facility] extract extract 0[facility] 00:00: - [facility] 00 [facility] allergy allergy 2021- No .05mL [facility] extract extract 0[facility] 00:00: - [facility] 00 [facility] allergy allergy 2021- No .05mL [facility] extract extract 0[facility]21 [facility] 00:00: - [facility] 00 [facility] allergy allergy 2021-1 No .05mL [facility] extract extract 0[facility]21 [facility] 00:00: - [facility] 00 [facility] allergy allergy 2021- No .05mL [facility] extract extract 0[facility] 00:00: - [facility] 00 [facility] allergy allergy 2021- No .05mL [facility] extract extract 0[facility]21 [facility] 00:00: - [facility] 00 [facility] allergy allergy 2021- No .05mL [facility] extract extract 0[facility] 00:00: - [facility] 00 [facility] allergy allergy 2021- No .05mL [facility] extract extract 0[facility] 00:00: - [facility] 00 [facility] allergy allergy 2021- No .05mL [facility] extract extract 0[facility] 00:00: - [facility] 00 [facility] allergy allergy 2021- No .05mL [facility] extract extract 0[facility] 00:00: - [facility] 00 [facility] allergy allergy 2021- No .05mL [facility] extract extract 0[facility] 00:00: - [facility] 00 [facility] allergy allergy 2021- No .05mL [facility] extract extract 0[facility] 00:00: - [facility] 00 [facility] allergy allergy 2021- No .05mL [facility] extract extract 0[facility] 00:00: - [facility] 00 [facility] allergy allergy 2021- No .05mL [facility] extract extract 0[facility] 00:00: - [facility] 00 [facility] allergy allergy 2021- No .05mL [facility] extract extract 0[facility] 00:00: - [facility] 00 [facility] allergy allergy 2021- No .05mL [facility] extract extract 0[facility]21 [facility] 00:00: - [facility] 00 [facility] allergy allergy 2021- No .05mL [facility] extract extract 0[facility] 00:00: - [facility] 00 [facility] allergy allergy 2021- No .05mL [facility] extract extract 0[facility] 00:00: - [facility] 00 [facility] allergy allergy 2021- No .05mL [facility] extract extract 0[facility] 00:00: - [facility] 00 [facility] allergy allergy 2021- No .05mL [facility] extract extract 0[facility] 00:00: - [facility] 00 [facility] allergy allergy 2021- No .05mL [facility] extract extract 0[facility]21 [facility] 00:00: - [facility] 00 [facility] allergy allergy 2021- No .05mL [facility] extract extract 0[facility] 00:00: - [facility] 00 [facility] allergy allergy 2021- No .05mL [facility] extract extract 0[facility] 00:00: - [facility] 00 [facility] allergy allergy 2021- No .05mL [facility] extract extract 0[facility] 00:00: - [facility] 00 [facility] allergy allergy 2021- No .05mL [facility] extract extract 0[facility] 00:00: - [facility] 00 [facility] allergy allergy 2021- No .05mL [facility] extract extract 0[facility] 00:00: - [facility] 00 [facility] allergy allergy 2021- No .05mL [facility] extract extract 0[facility] 00:00: - [facility] 00 [facility] allergy allergy 2021- No .05mL [facility] extract extract 0[facility] 00:00: - [facility] 00 [facility] allergy allergy 2021- No .05mL [facility] extract extract 0[facility] 00:00: - [facility] 00 [facility] allergy allergy 2021- No .05mL [facility] extract extract 0[facility] 00:00: - [facility] 00 [facility] allergy allergy 2021- No .05mL [facility] extract extract 0[facility] 00:00: - [facility] 00 [facility] allergy allergy 2021- No .05mL [facility] extract extract 0[facility] 00:00: - [facility] 00 [facility] allergy allergy 2021- No .05mL [facility] extract extract 0[facility] 00:00: - [facility] 00 [facility] allergy allergy 2021- No .05mL [facility] extract extract 0[facility] 00:00: - [facility] 00 [facility] allergy allergy 2021- No .05mL [facility] extract extract 0[facility] 00:00: - [facility] 00 [facility] allergy allergy 2021- No .05mL [facility] extract extract 0[facility] 00:00: - [facility] 00 [facility] allergy allergy 2021- No .05mL [facility] extract extract 0[facility] 00:00: - [facility] 00 [facility] allergy allergy 2021- No .05mL [facility] extract extract 0[facility] 00:00: - [facility] 00 [facility] allergy allergy 2021- No .05mL [facility] extract extract 0[facility] 00:00: - [facility] 00 [facility] allergy allergy 2021- No .05mL [facility] extract extract 0[facility] 00:00: - [facility] 00 [facility] allergy allergy 2021- No .05mL [facility] extract extract 0[facility] 00:00: - [facility] 00 [facility] allergy allergy 2021- No .05mL [facility] extract extract 0[facility] 00:00: - [facility] 00 [facility] allergy allergy 2021- No .05mL [facility] extract extract 0[facility] 00:00: - [facility] 00 [facility] allergy allergy 2021- No .05mL [facility] extract extract 0[facility] 00:00: - [facility] 00 [facility] allergy allergy 2021- No .05mL [facility] extract extract 0[facility] 00:00: - [facility] 00 [facility] allergy allergy 2021- No .05mL [facility] extract extract 0[facility] 00:00: - [facility] 00 [facility] allergy allergy 2021- No .05mL [facility] extract extract 0[facility] 00:00: - [facility] 00 [facility] allergy allergy 2021- No .05mL [facility] extract extract 0[facility] 00:00: - [facility] 00 [facility] allergy allergy 2021- No .05mL [facility] extract extract 0[facility] 00:00: - [facility] 00 [facility] allergy allergy 2021- No .05mL [facility] extract extract 0[facility] 00:00: - [facility] 00 [facility] allergy allergy 2021- No .05mL [facility] extract extract 0[facility] 00:00: - [facility] 00 [facility] allergy allergy 2021- No .05mL [facility] extract extract 0[facility] 00:00: - [facility] 00 [facility] allergy allergy 2021- No .05mL [facility] extract extract 0[facility] 00:00: - [facility] 00 [facility] allergy allergy 2021- No .05mL [facility] extract extract 0[facility] 00:00: - [facility] 00 [facility] allergy allergy 2021- No .05mL [facility] extract extract 0[facility] 00:00: - [facility] 00 [facility] allergy allergy 2022-1 No .05mL Common extract extract 0- [facility] 00:00: - [facility] allergy allergy 2-0 No .1mL Common extract extract 01-09 [facility] 00:00: - [facility] 00 [facility] allergy allergy 2-0 No .1mL [facility] extract extract 01-09 [facility] 00:00: - [facility] 00 [facility] allergy allergy 2-0 No .1mL [facility] extract extract 01-09 [facility] 00:00: - [facility] 00 [facility] allergy allergy 2-0 No .1mL [facility] extract extract 01-09 [facility] 00:00: - [facility] allergy allergy 2-0 No .1mL [facility] extract extract 01-09 [facility] 00:00: - [facility] allergy allergy 2-0 No .1mL [facility] extract extract 01-09 [facility] 00:00: - [facility] allergy allergy 2-0 No .1mL [facility] extract extract 01-09 [facility] 00:00: - [facility] allergy allergy 2-0 No .1mL Common extract extract 01-09 [facility] 00:00: - [facility] allergy allergy 2-0 No .1mL Common extract extract 01-09 [facility] 00:00: - [facility] allergy allergy 2-0 No .1mL [facility] extract extract 01-09 [facility] 00:00: - [facility] allergy allergy 2-0 No .1mL Common extract extract 01-09 [facility] 00:00: - [facility] allergy allergy 2022-0 No .1mL [facility] extract extract 01-09 [facility] 00:00: - [facility] 00 [facility] allergy allergy 2022-0 No .1mL [facility] extract extract 01-09 [facility] 00:00: - [facility] 00 [facility] allergy allergy 2022-0 No .1mL [facility] extract extract 01-09 [facility] 00:00: - [facility] 00 [facility] allergy allergy 2022-0 No .1mL [facility] extract extract 01-09 [facility] 00:00: - [facility] 00 [facility] allergy allergy 2022-0 No .1mL [facility] extract extract 01-09 [facility] 00:00: - [facility] 00 [facility] allergy allergy 2022-0 No .1mL [facility] extract extract 01-09 [facility] 00:00: - [facility] 00 [facility] allergy allergy 2022-0 No .1mL [facility] extract extract 01-09 [facility] 00:00: - [facility] 00 [facility] allergy allergy 2022-0 No .1mL [facility] extract extract 01-09 [facility] 00:00: - [facility] 00 [facility] allergy allergy 2022-0 No .1mL Common extract extract 01-09 [facility] 00:00: - [facility] allergy allergy 2022-0 No .1mL Common extract extract 01-09 Spirit 00:00: - [facility] allergy allergy 2022-0 No .1mL Common extract extract 01-09 [facility] 00:00: - [facility] allergy allergy 2-0 No .1mL Common extract extract 01-09 Spirit 00:00: - [facility] allergy allergy 2022-0 No .1mL Common extract extract 01-09 Spirit 00:00: - [facility] allergy allergy 2022-0 No .1mL Common extract extract 01-09 Spirit 00:00: - [facility] allergy allergy 2022-0 No .1mL Common extract extract 01-09 [facility] 00:00: - [facility] allergy allergy 2022-0 No .1mL Common extract extract 01-09 [facility] 00:00: - [facility] allergy allergy 2022-0 No .1mL Common extract extract 01-09 [facility] 00:00: - [facility] allergy allergy 2022-0 No .1mL Common extract extract 01-09 [facility] 00:00: - [facility] allergy allergy 2022-0 No .1mL Common extract extract 01-09 [facility] 00:00: - [facility] allergy allergy 2022-0 No .1mL Common extract extract 01-09 [facility] 00:00: - [facility] allergy allergy 2022-0 No .1mL Common extract extract 01-09 [facility] 00:00: - [facility] allergy allergy 2022-0 No .1mL Common extract extract 01-09 [facility] 00:00: - [facility] allergy allergy 2022-0 No .1mL Common extract extract 01-09 [facility] 00:00: - [facility] allergy allergy 2022-0 No .1mL Common extract extract 01-09 [facility] 00:00: - [facility] allergy allergy 2022-0 No .1mL Common extract extract 01-09 [facility] 00:00: - [facility] allergy allergy 2022-0 No .1mL Common extract extract 01-09 [facility] 00:00: - [facility] allergy allergy 2022-0 No .1mL Common extract extract 01-09 [facility] 00:00: - [facility] allergy allergy 2022-0 No .1mL Common extract extract 01-09 [facility] 00:00: - [facility] allergy allergy 2022-0 No .1mL Common extract extract 01-09 [facility] 00:00: - [facility] allergy allergy 2-0 No .1mL Common extract extract 01-09 [facility] 00:00: - [facility] allergy allergy 2-0 No .1mL Common extract extract 01-09 [facility] 00:00: - [facility] allergy allergy 2022-0 No .1mL Common extract extract 01-09 [facility] 00:00: - [facility] allergy allergy 2022-0 No .1mL Common extract extract 01-09 [facility] 00:00: - [facility] allergy allergy 2022-0 No .1mL Common extract extract 01-09 [facility] 00:00: - [facility] allergy allergy 2022-0 No .1mL Common extract extract 01-09 [facility] 00:00: - [facility] allergy allergy 2022-0 No .1mL Common extract extract 01-09 [facility] 00:00: - [facility] allergy allergy 2022-0 No .1mL Common extract extract 01-09 [facility] 00:00: - [facility] allergy allergy 2022-0 No .1mL Common extract extract 01-09 [facility] 00:00: - [facility] allergy allergy 2022-0 No .1mL Common extract extract 01-09 [facility] 00:00: - [facility] allergy allergy 2022-0 No .1mL Common extract extract 01-09 [facility] 00:00: - [facility] allergy allergy 2022-0 No .1mL Common extract extract 01-09 [facility] 00:00: - [facility] allergy allergy 2022-0 No .1mL Common extract extract 01-09 [facility] 00:00: - [facility] allergy allergy 2022-0 No .1mL Common extract extract 01-09 [facility] 00:00: - [facility] allergy allergy 2-0 No .1mL Common extract extract 01-09 [facility] 00:00: - [facility] allergy allergy 2022-0 No .1mL Common extract extract 01-09 [facility] 00:00: - [facility] allergy allergy 2-0 No .1mL Common extract extract 01-09 [facility] 00:00: - [facility] allergy allergy 2-0 No .1mL Common extract extract 01-09 [facility] 00:00: - [facility] allergy allergy 2-0 No .1mL Common extract extract 01-09 [facility] 00:00: - [facility] allergy allergy 2022-0 No .1mL Common extract extract 01-09 [facility] 00:00: - [facility] allergy allergy 2-0 No .1mL Common extract extract 01-09 [facility] 00:00: - [facility] allergy allergy 2-0 No .1mL Common extract extract 01-09 [facility] 00:00: - [facility] allergy allergy 2022-0 No .1mL Common extract extract 01-09 [facility] 00:00: - [facility] allergy allergy 2022-0 No .1mL Common extract extract 01-09 [facility] 00:00: - [facility] allergy allergy 2022-0 No .1mL Common extract extract 01-09 [facility] 00:00: - [facility] allergy allergy 2022-0 No .1mL Common extract extract 01-09 [facility] 00:00: - [facility] allergy allergy 2022-0 No .1mL Common extract extract 01-09 [facility] 00:00: - [facility] allergy allergy 2022-0 No .1mL Common extract extract 01-09 [facility] 00:00: - [facility] allergy allergy 2022-0 No .1mL Common extract extract 01-09 [facility] 00:00: - [facility] allergy allergy 2-0 No .1mL Common extract extract 01-09 [facility] 00:00: - [facility] allergy allergy 2-0 No .1mL Common extract extract 01-09 [facility] 00:00: - [facility] allergy allergy 2022-0 No .1mL Common extract extract 01-09 [facility] 00:00: - [facility] allergy allergy 2-0 No .1mL Common extract extract 01-09 [facility] 00:00: - [facility] allergy allergy 2-0 No .1mL Common extract extract 01-09 [facility] 00:00: - [facility] allergy allergy 2-0 No .1mL Common extract extract 01-09 [facility] 00:00: - [facility] allergy allergy 2-0 No .1mL Common extract extract 01-09 [facility] 00:00: - [facility] allergy allergy 2-0 No .1mL Common extract extract 01-09 [facility] 00:00: - [facility] allergy allergy 2-0 No .1mL Common extract extract 01-09 [facility] 00:00: - [facility] allergy allergy 2-0 No .1mL Common extract extract 01-09 [facility] 00:00: - [facility] allergy allergy 2-0 No .1mL Common extract extract 01-09 [facility] 00:00: - [facility] allergy allergy 2022-0 No .1mL Common extract extract 01-09 [facility] 00:00: - [facility] allergy allergy 2022-0 No .1mL Common extract extract 01-09 [facility] 00:00: - [facility] allergy allergy 2022-0 No .1mL Common extract extract 01-09 [facility] 00:00: - [facility] allergy allergy 2022-0 No .1mL Common extract extract 01-09 [facility] 00:00: - [facility] allergy allergy 2022-0 No .1mL Common extract extract 01-09 [facility] 00:00: - [facility] allergy allergy 2022-0 No .1mL Common extract extract 01-09 [facility] 00:00: - [facility] allergy allergy 2022-0 No .1mL Common extract extract 01-09 [facility] 00:00: - [facility] allergy allergy 2022-0 No .1mL Common extract extract 01-09 [facility] 00:00: - [facility] allergy allergy 2022-0 No .1mL Common extract extract 01-09 [facility] 00:00: - [facility] allergy allergy 2022-0 No .1mL Common extract extract 01-09 [facility] 00:00: - [facility] allergy allergy 2-0 No .1mL Common extract extract 01-09 [facility] 00:00: - [facility] allergy allergy 2-0 No .1mL Common extract extract 01-09 [facility] 00:00: - [facility] allergy allergy 2-0 No .1mL Common extract extract 01-09 [facility] 00:00: - [facility] allergy allergy 2-0 No .1mL Common extract extract 01-09 [facility] 00:00: - [facility] allergy allergy 2022-0 No .1mL Common extract extract 01-09 [facility] 00:00: - [facility] allergy allergy 2022-0 No .1mL Common extract extract 01-09 [facility] 00:00: - [facility] allergy allergy 2022-0 No .1mL Common extract extract 01-09 [facility] 00:00: - [facility] allergy allergy 2022-0 No .1mL Common extract extract 01-09 [facility] 00:00: - [facility] allergy allergy 2022-0 No .1mL Common extract extract 01-09 [facility] 00:00: - [facility] allergy allergy 2022-0 No .1mL Common extract extract 01-09 [facility] 00:00: - [facility] allergy allergy 2022-0 No .1mL Common extract extract 01-09 [facility] 00:00: - [facility] allergy allergy 2022-0 No .1mL Common extract extract 01-09 [facility] 00:00: - [facility] allergy allergy 2022-0 No .1mL Common extract extract 01-09 [facility] 00:00: - [facility] allergy allergy 2022-0 No .1mL Common extract extract 01-09 [facility] 00:00: - [facility] allergy allergy 2022-0 No .1mL Common extract extract 01-09 [facility] 00:00: - [facility] allergy allergy 2022-0 No .1mL Common extract extract 01-09 [facility] 00:00: - [facility] allergy allergy 2022-0 No .1mL Common extract extract 01-09 [facility] 00:00: - [facility] allergy allergy 2022-0 No .1mL Common extract extract 01-09 [facility] 00:00: - [facility] allergy allergy 2022-0 No .1mL Common extract extract 01-09 [facility] 00:00: - [facility] allergy allergy 2022-0 No .1mL Common extract extract 01-09 [facility] 00:00: - [facility] allergy allergy 2-0 No .1mL Common extract extract 01-09 [facility] 00:00: - [facility] allergy allergy 2022-0 No .1mL Common extract extract 01-09 [facility] 00:00: - [facility] allergy allergy 2022-0 No .1mL Common extract extract 01-09 [facility] 00:00: - [facility] allergy allergy 2022-0 No .1mL Common extract extract 01-09 [facility] 00:00: - [facility] allergy allergy 2022-0 No .1mL Common extract extract 01-09 [facility] 00:00: - [facility] allergy allergy 2022-0 No .1mL Common extract extract 01-09 [facility] 00:00: - [facility] allergy allergy 2022-0 No .1mL Common extract extract 01-09 [facility] 00:00: - [facility] allergy allergy 2022-0 No .1mL Common extract extract 01-09 [facility] 00:00: - [facility] allergy allergy 2022-0 No .1mL Common extract extract 01-09 [facility] 00:00: - [facility] allergy allergy 2022-0 No .1mL Common extract extract 01-09 [facility] 00:00: - [facility] allergy allergy 2022-0 No .1mL Common extract extract 01-09 [facility] 00:00: - [facility] allergy allergy 2022-0 No .1mL Common extract extract 01-09 [facility] 00:00: - [facility] allergy allergy 2022-0 No .1mL Common extract extract 01-09 [facility] 00:00: - [facility] allergy allergy 2022-0 No .1mL Common extract extract 01-09 [facility] 00:00: - [facility] allergy allergy 2022-0 No .1mL Common extract extract 01-09 [facility] 00:00: - [facility] allergy allergy 2-0 No .1mL Common extract extract 01-09 [facility] 00:00: - [facility] allergy allergy 2-0 No .1mL Common extract extract 01-09 [facility] 00:00: - [facility] allergy allergy 2-0 No .1mL Common extract extract 01-09 [facility] 00:00: - [facility] allergy allergy 2022-0 No .1mL Common extract extract 01-09 [facility] 00:00: - [facility] allergy allergy 2022-0 No .1mL Common extract extract 01-09 [facility] 00:00: - [facility] allergy allergy 2022-0 No .1mL Common extract extract 01-09 [facility] 00:00: - [facility] allergy allergy 2022-0 No .1mL Common extract extract 01-09 [facility] 00:00: - [facility] allergy allergy 2022-0 No .1mL Common extract extract 01-09 [facility] 00:00: - [facility] allergy allergy 2022-0 No .1mL Common extract extract 01-09 [facility] 00:00: - [facility] allergy allergy 2022-0 No .1mL Common extract extract 01-09 [facility] 00:00: - [facility] allergy allergy 2022-0 No .1mL Common extract extract 01-09 [facility] 00:00: - [facility] allergy allergy 2022-0 No .1mL Common extract extract 01-09 [facility] 00:00: - [facility] allergy allergy 2022-0 No .1mL Common extract extract 01-09 [facility] 00:00: - [facility] allergy allergy 2-0 No .1mL Common extract extract 01-09 [facility] 00:00: - [facility] allergy allergy 2-0 No .1mL Common extract extract 01-09 [facility] 00:00: - [facility] allergy allergy 2-0 No .1mL Common extract extract 01-09 [facility] 00:00: - [facility] allergy allergy 2-0 No .1mL Common extract extract 01-09 [facility] 00:00: - [facility] allergy allergy 2-0 No .1mL Common extract extract 01-09 [facility] 00:00: - [facility] allergy allergy 2-0 No .1mL Common extract extract 01-09 [facility] 00:00: - [facility] Trelegy Trelegy 2021-0 No 1{puff} QD Trelegy Ellipta Ellipta 7-19 Ellipta 200-62.5-25 200-62.5-25 00:00: 200-62.5-2 MCG/INH MCG/INH 00 5 MCG/INH Trelegy Trelegy 2021-0 No 1{puff} QD Trelegy Ellipta Ellipta 7-19 Ellipta 200-62.5-25 200-62.5-25 00:00: 200-62.5-2 MCG/INH MCG/INH 00 5 MCG/INH Trelegy Trelegy 2021-0 No 1{puff} QD Trelegy Ellipta Ellipta 7-19 Ellipta 200-62.5-25 200-62.5-25 00:00: 200-62.5-2 MCG/INH MCG/INH 00 5 MCG/INH Trelegy Trelegy 2-0 No 1{puff} QD Trelegy Ellipta Ellipta 7-19 Ellipta 200-62.5-25 200-62.5-25 00:00: 200-62.5-2 MCG/INH MCG/INH 00 5 MCG/INH Trelegy Trelegy 2-0 No 1{puff} QD Trelegy Ellipta Ellipta 7-19 Ellipta 200-62.5-25 200-62.5-25 00:00: 200-62.5-2 MCG/INH MCG/INH 00 5 MCG/INH Trelegy Trelegy 2-0 No 1{puff} QD Trelegy Ellipta Ellipta 7-19 Ellipta 200-62.5-25 200-62.5-25 00:00: 200-62.5-2 MCG/INH MCG/INH 00 5 MCG/INH Trelegy Trelegy 2-0 No 1{puff} QD Trelegy Ellipta Ellipta 7-19 Ellipta 200-62.5-25 200-62.5-25 00:00: 200-62.5-2 MCG/INH MCG/INH 00 5 MCG/INH Trelegy Trelegy 2021-0 No 1{puff} QD Trelegy Ellipta Ellipta 7-19 Ellipta 200-62.5-25 200-62.5-25 00:00: 200-62.5-2 MCG/INH MCG/INH 00 5 MCG/INH Trelegy Trelegy 2021-0 No 1{puff} QD Trelegy Ellipta Ellipta 7-19 Ellipta 200-62.5-25 200-62.5-25 00:00: 200-62.5-2 MCG/INH MCG/INH 00 5 MCG/INH Trelegy Trelegy 2021-0 No 1{puff} QD Trelegy Ellipta Ellipta 7-19 Ellipta 200-62.5-25 200-62.5-25 00:00: 200-62.5-2 MCG/INH MCG/INH 00 5 MCG/INH Trelegy Trelegy 2021-0 No 1{puff} QD Trelegy Ellipta Ellipta 7-19 Ellipta 200-62.5-25 200-62.5-25 00:00: 200-62.5-2 MCG/INH MCG/INH 00 5 MCG/INH Trelegy Trelegy 2-0 No 1{puff} QD Trelegy Ellipta Ellipta 7-19 Ellipta 200-62.5-25 200-62.5-25 00:00: 200-62.5-2 MCG/INH MCG/INH 00 5 MCG/INH Trelegy Trelegy 2021-0 No 1{puff} QD Trelegy Ellipta Ellipta 7-19 Ellipta 200-62.5-25 200-62.5-25 00:00: 200-62.5-2 MCG/INH MCG/INH 00 5 MCG/INH Trelegy Trelegy 2021-0 No 1{puff} QD Trelegy Ellipta Ellipta 7-19 Ellipta 200-62.5-25 200-62.5-25 00:00: 200-62.5-2 MCG/INH MCG/INH 00 5 MCG/INH Trelegy Trelegy 2021-0 No 1{puff} QD Trelegy Ellipta Ellipta 7-19 Ellipta 200-62.5-25 200-62.5-25 00:00: 200-62.5-2 MCG/INH MCG/INH 00 5 MCG/INH Trelegy Trelegy 2021-0 No 1{puff} QD Trelegy Ellipta Ellipta 7-19 Ellipta 200-62.5-25 200-62.5-25 00:00: 200-62.5-2 MCG/INH MCG/INH 00 5 MCG/INH Trelegy Trelegy 2021-0 No 1{puff} QD Trelegy Ellipta Ellipta 7-19 Ellipta 200-62.5-25 200-62.5-25 00:00: 200-62.5-2 MCG/INH MCG/INH 00 5 MCG/INH Trelegy Trelegy 2021-0 No 1{puff} QD Trelegy Ellipta Ellipta 7-19 Ellipta 200-62.5-25 200-62.5-25 00:00: 200-62.5-2 MCG/INH MCG/INH 00 5 MCG/INH Trelegy Trelegy 2021-0 No 1{puff} QD Trelegy Ellipta Ellipta 7-19 Ellipta 200-62.5-25 200-62.5-25 00:00: 200-62.5-2 MCG/INH MCG/INH 00 5 MCG/INH Trelegy Trelegy 2021-0 No 1{puff} QD Trelegy Ellipta Ellipta 7-19 Ellipta 200-62.5-25 200-62.5-25 00:00: 200-62.5-2 MCG/INH MCG/INH 00 5 MCG/INH methylPREDN 1-0 Yes FOLLOW [facility] ISolone 4 3-10 PACKAGE [facility]y of mg tablets 00:00: DIRE[facility] methylPREDN 2021-0 Yes FOLLOW [facility] ISolone 4 3-10 PACKAGE ity of mg tablets 00:00: DIRECTIONS [facility] methylPREDN 1-0 Yes FOLLOW [facility] ISolone 4 3-10 PACKAGE [facility]y of mg tablets 00:00: DIRECTIONS [facility] methylPREDN 2021-0 Yes FOLLOW [facility] ISolone 4 3-10 PACKAGE [facility]y of mg tablets 00:00: DIRECTIONS [facility] methylPREDN 1-0 Yes FOLLOW [facility] ISolone 4 3-10 PACKAGE ity of mg tablets 00:00: DIRECTIONS [facility] methylPREDN 1-0 Yes FOLLOW [facility] ISolone 4 3-10 PACKAGE ity of mg tablets 00:00: DIRECTIONS [facility] methylPREDN 2021-0 Yes FOLLOW [facility] ISolone 4 3-10 PACKAGE ity of mg tablets 00:00: DIRECTIONS [facility] methylPREDN 1-0 Yes FOLLOW [facility] ISolone 4 3-10 PACKAGE [facility]y of mg tablets 00:00: DIRECTIONS [facility] Ondansetron Ondansetron No 1{table Ondansetro HCl 4 MG HCl 4 MG t} n HCl 4 MG Albuterol Albuterol No Albuterol Sulfate HFA Sulfate HFA Sulfate 108 (90 108 (90 HFA 108 Base) Base) (90 Base) MCG/ACT MCG/ACT MCG/ACT No Known No Known No Common Medications Medications [facility] Ondansetron Ondansetron No 1{table Ondansetro HCl 4 MG HCl 4 MG t} n HCl 4 MG Albuterol Albuterol No Albuterol Sulfate HFA Sulfate HFA Sulfate 108 (90 108 (90 HFA 108 Base) Base) (90 Base) MCG/ACT MCG/ACT MCG/ACT Albuterol Albuterol No Albuterol Sulfate HFA Sulfate HFA Sulfate 108 (90 108 (90 HFA 108 Base) Base) (90 Base) MCG/ACT MCG/ACT MCG/ACT Ondansetron Ondansetron No 1{table Ondansetro HCl 4 MG HCl 4 MG t} n HCl 4 MG Albuterol Albuterol No Albuterol Sulfate HFA Sulfate HFA Sulfate 108 (90 108 (90 HFA 108 Base) Base) (90 Base) MCG/ACT MCG/ACT MCG/ACT Ondansetron Ondansetron No 1{table Ondansetro HCl 4 MG HCl 4 MG t} n HCl 4 MG Albuterol Albuterol No Albuterol Sulfate HFA Sulfate HFA Sulfate 108 (90 108 (90 HFA 108 Base) Base) (90 Base) MCG/ACT MCG/ACT MCG/ACT Ondansetron Ondansetron No 1{table Ondansetro HCl 4 MG HCl 4 MG t} n HCl 4 MG Ondansetron Ondansetron No 1{table Ondansetro HCl 4 MG HCl 4 MG t} n HCl 4 MG Albuterol Albuterol No Albuterol Sulfate HFA Sulfate HFA Sulfate 108 (90 108 (90 HFA 108 Base) Base) (90 Base) MCG/ACT MCG/ACT MCG/ACT Ondansetron Ondansetron No 1{table Ondansetro HCl 4 MG HCl 4 MG t} n HCl 4 MG Albuterol Albuterol No Albuterol Sulfate HFA Sulfate HFA Sulfate 108 (90 108 (90 HFA 108 Base) Base) (90 Base) MCG/ACT MCG/ACT MCG/ACT Ondansetron Ondansetron No 1{table Ondansetro HCl 4 MG HCl 4 MG t} n HCl 4 MG Albuterol Albuterol No Albuterol Sulfate HFA Sulfate HFA Sulfate 108 (90 108 (90 HFA 108 Base) Base) (90 Base) MCG/ACT MCG/ACT MCG/ACT Albuterol Albuterol No Albuterol Sulfate HFA Sulfate HFA Sulfate 108 (90 108 (90 HFA 108 Base) Base) (90 Base) MCG/ACT MCG/ACT MCG/ACT Ondansetron Ondansetron No 1{table Ondansetro HCl 4 MG HCl 4 MG t} n HCl 4 MG Albuterol Albuterol No Albuterol Sulfate HFA Sulfate HFA Sulfate 108 (90 108 (90 HFA 108 Base) Base) (90 Base) MCG/ACT MCG/ACT MCG/ACT Ondansetron Ondansetron No 1{table Ondansetro HCl 4 MG HCl 4 MG t} n HCl 4 MG Ondansetron Ondansetron No 1{table Ondansetro HCl 4 MG HCl 4 MG t} n HCl 4 MG Albuterol Albuterol No Albuterol Sulfate HFA Sulfate HFA Sulfate 108 (90 108 (90 HFA 108 Base) Base) (90 Base) MCG/ACT MCG/ACT MCG/ACT Ondansetron Ondansetron No 1{table Ondansetro HCl 4 MG HCl 4 MG t} n HCl 4 MG Albuterol Albuterol No Albuterol Sulfate HFA Sulfate HFA Sulfate 108 (90 108 (90 HFA 108 Base) Base) (90 Base) MCG/ACT MCG/ACT MCG/ACT Ondansetron Ondansetron No 1{table Ondansetro HCl 4 MG HCl 4 MG t} n HCl 4 MG Albuterol Albuterol No Albuterol Sulfate HFA Sulfate HFA Sulfate 108 (90 108 (90 HFA 108 Base) Base) (90 Base) MCG/ACT MCG/ACT MCG/ACT Ondansetron Ondansetron No 1{table Ondansetro HCl 4 MG HCl 4 MG t} n HCl 4 MG Albuterol Albuterol No Albuterol Sulfate HFA Sulfate HFA Sulfate 108 (90 108 (90 HFA 108 Base) Base) (90 Base) MCG/ACT MCG/ACT MCG/ACT Meclizine Meclizine No Meclizine HCl 25 MG HCl 25 MG HCl 25 MG Albuterol Albuterol No Albuterol Sulfate HFA Sulfate HFA Sulfate 108 (90 108 (90 HFA 108 Base) Base) (90 Base) MCG/ACT MCG/ACT MCG/ACT Ondansetron Ondansetron No 1{table Ondansetro HCl 4 MG HCl 4 MG t} n HCl 4 MG Albuterol Albuterol No Albuterol Sulfate HFA Sulfate HFA Sulfate 108 (90 108 (90 HFA 108 Base) Base) (90 Base) MCG/ACT MCG/ACT MCG/ACT Ondansetron Ondansetron No 1{table Ondansetro HCl 4 MG HCl 4 MG t} n HCl 4 MG Albuterol Albuterol No Albuterol Sulfate HFA Sulfate HFA Sulfate 108 (90 108 (90 HFA 108 Base) Base) (90 Base) MCG/ACT MCG/ACT MCG/ACT Albuterol Albuterol No Albuterol Sulfate HFA Sulfate HFA Sulfate 108 (90 108 (90 HFA 108 Base) Base) (90 Base) MCG/ACT MCG/ACT MCG/ACT Albuterol Albuterol No Albuterol Sulfate HFA Sulfate HFA Sulfate 108 (90 108 (90 HFA 108 Base) Base) (90 Base) MCG/ACT MCG/ACT MCG/ACT Ondansetron Ondansetron No 1{table Ondansetro HCl 4 MG HCl 4 MG t} n HCl 4 MG Albuterol Albuterol No Albuterol Sulfate HFA Sulfate HFA Sulfate 108 (90 108 (90 HFA 108 Base) Base) (90 Base) MCG/ACT MCG/ACT MCG/ACT Immunizations Ordered Filled Date Status Comments Source Immunization Name Immunization Name SARS-COV-2 COVID-19 2020-07-20 Completed [facility] PFIZER VACCINE 00:00:00 [facility] SARS-COV-2 COVID-19 2020-07-20 Completed [facility] PFIZER VACCINE 00:00:00 [facility] SARS-COV-2 COVID-19 2020-07-20 Completed [facility] PFIZER VACCINE 00:00:00 [facility] SARS-COV-2 COVID-19 2020-06-24 Completed [facility] PFIZER VACCINE 00:00:00 [facility] SARS-COV-2 COVID-19 2020-06-24 Completed [facility] PFIZER VACCINE 00:00:00 [facility] SARS-COV-2 COVID-19 2020-06-24 Completed [facility] PFIZER VACCINE 00:00:00 [facility] SARS-COV-2 COVID-19 2020-06-24 Completed [facility] PFIZER VACCINE 00:00:00 [facility] SARS-COV-2 COVID-19 2020-06-24 Completed [facility] PFIZER VACCINE 00:00:00 [facility] Influenza Virus 2020-04-16 Completed [facility] Vaccine [facility] 00:00:00 [place] [facility] 6+ [facility] [place] Influenza Virus 2020-04-16 Completed [facility] Vaccine [facility] 00:00:00 [place] [facility] Multi-dose 6+ [facility] Influenza Virus 2020-04-16 Completed [facility] Vaccine [facility] 00:00:00 [place] [facility] Multi-dose 6+ [facility] Influenza Virus 2020-04-16 Completed [facility] Vaccine [facility] 00:00:00 [place] [facility] Multi-dose 6+ [facility] Influenza Virus 2020-04-16 Completed [facility] Vaccine [facility] 00:00:00 [place] [facility] Multi-dose 6+ [facility] Influenza Virus 2019-03-08 Completed [facility] Vaccine 00:00:00 [facility] Influenza Virus 2019-03-08 Completed [facility] Vaccine 00:00:00 [facility] Influenza Virus 2019-03-08 Completed [facility] Vaccine 00:00:00 [facility] Influenza Virus 2019-03-08 Completed [facility] Vaccine 00:00:00 [facility] Influenza Virus 2019-03-08 Completed [facility] Vaccine 00:00:00 [facility] Influenza Virus 2017-06-03 Completed [facility] Vaccine 00:00:00 [facility] Influenza Virus 2017-06-03 Completed [facility] Vaccine 00:00:00 [facility] Influenza Virus 2017-06-03 Completed [facility] Vaccine 00:00:00 [facility] Influenza Virus 2017-06-03 Completed [facility] Vaccine 00:00:00 [facility] Influenza Virus 2017-06-03 Completed [facility] Vaccine 00:00:00 [facility] SARS-COV-2 COVID-19 Unknown Completed [facility] PFIZER VACCINE [facility] Influenza Virus Unknown Completed [facility] Vaccine [facility] Influenza Virus Unknown Completed [facility] Vaccine [facility] Influenza Virus Unknown Completed [facility] Vaccine [facility] [place] [facility] Multi-dose 6+ [facility] SARS-COV-2 COVID-19 Unknown Completed [facility] PFIZER VACCINE [facility] Influenza Virus Unknown Completed [facility] Vacc[facility] Influenza Virus Unknown Completed [facility] Vaccine [facility] Influenza Virus Unknown Completed [facility] of Vaccine [facility] [place] [facility] 6+ [facility] SARS-COV-2 COVID-19 Unknown Completed Unive rsity of PFIZER VACCINE [facility] SARS-COV-2 COVID-19 Unknown Completed Unive rsity of PFIZER VACCINE [facility] Influenza Virus Unknown Completed Universit y of Vaccine [facility] Influenza Virus Unknown Completed Universit y of Vaccine [facility] Influenza Virus Unknown Completed Universit y of Vaccine [facility] [place] [facility] Multi-dose 6+ [facility] SARS-COV-2 COVID-19 Unknown Completed Unive rsity of PFIZER VACCINE [facility] SARS-COV-2 COVID-19 Unknown Completed Unive rsity of PFIZER VACCINE [facility] Influenza Virus Unknown Completed Universit y of Vaccine [facility] Influenza Virus Unknown Completed Universit y of Vaccine [facility] Influenza Virus Unknown Completed Universit y of Vaccine [facility] [place] [facility] Multi-dose 6+ [facility] SARS-COV-2 COVID-19 Unknown Completed Unive rsity of PFIZER VACCINE [facility] Vital Signs Vital Name Observation Time Observation Value Comments Source height 2022-09-02 13:00:00 64 [in_i] [facility] weight 2022-09-02 13:00:00 200 [lb_av] [facility] temperature 2022-09-02 13:00:00 98.2 [degF] [facility] bmi 2022-09-02 13:00:00 34.33 kg/m2 [facility] oximetry 2022-09-02 13:00:00 97 % [facility] respiratory rate 2022-09-02 13:00:00 16 /min Comm on [facility] blood pressure 2022-09-02 13:00:00 114 mm[Hg] [facility] - systolic [facility] blood pressure 2022-09-02 13:00:00 75 mm[Hg] [facility] - diastolic [facility] height 2022-08-17 16:30:00 64 [in_i] [facility] weight 2022-08-17 16:30:00 201.6 [lb_av] [facility] temperature 2022-08-17 16:30:00 98.7 [degF] [facility] bmi 2022-08-17 16:30:00 34.6 kg/m2 [facility] oximetry 2022-08-17 16:30:00 98 % Common [facility] respiratory rate 2022-08-17 16:30:00 18 /min Comm on [facility] blood pressure 2022-08-17 16:30:00 115 mm[Hg] Common [facility] - systolic [facility] blood pressure 2022-08-17 16:30:00 69 mm[Hg] Common [facility] - diastolic [facility] height 2022-08-14 11:40:00 64 [in_i] Common [facility] weight 2022-08-14 11:40:00 200 [lb_av] Common [facility] temperature 2022-08-14 11:40:00 98.1 [degF] [facility] bmi 2022-08-14 11:40:00 34.33 kg/m2 [facility] oximetry 2022-08-14 11:40:00 98 % [facility] respiratory rate 2022-08-14 11:40:00 16 /min Comm on [facility] blood pressure 2022-08-14 11:40:00 126 mm[Hg] Common [facility] - systolic [facility] blood pressure 2022-08-14 11:40:00 70 mm[Hg] Common [facility] - diastolic [facility] height 2022-07-21 11:40:00 64 [in_i] Common [facility] weight 2022-07-21 11:40:00 200 [lb_av] Common [facility] temperature 2022-07-21 11:40:00 98.1 [degF] Common [facility] bmi 2022-07-21 11:40:00 34.33 kg/m2 Common [facility] oximetry 2022-07-21 11:40:00 98 % [facility] respiratory rate 2022-07-21 11:40:00 16 /min Comm on [facility] blood pressure 2022-07-21 11:40:00 126 mm[Hg] Common [facility] - systolic [facility] blood pressure 2022-07-21 11:40:00 70 mm[Hg] [facility] - diastolic [facility] height 2022-07-03 10:00:00 64 [in_i] Common [facility] weight 2022-07-03 10:00:00 200 [lb_av] Common [facility] temperature 2022-07-03 10:00:00 99 [degF] Common [facility] bmi 2022-07-03 10:00:00 34.33 kg/m2 [facility] height 2022-05-22 11:40:00 64 [in_i] [facility] weight 2022-05-22 11:40:00 202 [lb_av] [facility] temperature 2022-05-22 11:40:00 91.1 [degF] [facility] bmi 2022-05-22 11:40:00 34.67 kg/m2 [facility] oximetry 2022-05-22 11:40:00 100 % [facility] respiratory rate 2022-05-22 11:40:00 16 /min Comm on [facility] blood pressure 2022-05-22 11:40:00 116 mm[Hg] Common [facility] - systolic [facility] blood pressure 2022-05-22 11:40:00 80 mm[Hg] [facility] - diastolic [facility] height 2022-05-15 11:40:00 64 [in_i] [facility] weight 2022-05-15 11:40:00 202.8 [lb_av] [facility] temperature 2022-05-15 11:40:00 97.6 [degF] [facility] bmi 2022-05-15 11:40:00 34.81 kg/m2 Common S pirit [facility] oximetry 2022-05-15 11:40:00 98 % Common S pirit - [facility] respiratory rate 2022-05-15 11:40:00 16 /min Comm on [facility] blood pressure 2022-05-15 11:40:00 105 mm[Hg] Common [facility] - systolic [facility] blood pressure 2022-05-15 11:40:00 74 mm[Hg] [facility] - diastolic [facility] height 2022-05-01 11:40:00 64 [in_i] Common [facility] weight 2022-05-01 11:40:00 200 [lb_av] Common [facility] temperature 2022-05-01 11:40:00 98.2 [degF] Common [facility] bmi 2022-05-01 11:40:00 34.33 kg/m2 Common S [facility] oximetry 2022-05-01 11:40:00 98 % Common [facility] respiratory rate 2022-05-01 11:40:00 16 /min Comm on [facility] blood pressure 2022-05-01 11:40:00 101 mm[Hg] Common [facility] - systolic [facility] blood pressure 2022-05-01 11:40:00 73 mm[Hg] Common [facility] - diastolic [facility] height 2022-04-23 15:00:00 64 [in_i] [facility] weight 2022-04-23 15:00:00 199.6 [lb_av] Common [facility] temperature 2022-04-23 15:00:00 97.3 [degF] [facility] bmi 2022-04-23 15:00:00 34.26 kg/m2 Common [facility] oximetry 2022-04-23 15:00:00 97 % Common [facility] respiratory rate 2022-04-23 15:00:00 16 /min Comm on [facility] blood pressure 2022-04-23 15:00:00 104 mm[Hg] [facility] - systolic [facility] blood pressure 2022-04-23 15:00:00 67 mm[Hg] [facility] - diastolic [facility] height 2022-04-17 11:40:00 64 [in_i] [facility] weight 2022-04-17 11:40:00 202 [lb_av] Common S pirit [facility] temperature 2022-04-17 11:40:00 97.5 [degF] [facility] bmi 2022-04-17 11:40:00 34.67 kg/m2 Common [facility] oximetry 2022-04-17 11:40:00 98 % Common [facility] respiratory rate 2022-04-17 11:40:00 16 /min Comm on [facility] blood pressure 2022-04-17 11:40:00 117 mm[Hg] Common [facility] - systolic [facility] blood pressure 2022-04-17 11:40:00 74 mm[Hg] Common [facility] - diastolic [facility] height 2022-04-10 11:00:00 64 [in_i] Common [facility] weight 2022-04-10 11:00:00 202.2 [lb_av] Common [facility] temperature 2022-04-10 11:00:00 97.69 [degF] Common S pirit [facility] bmi 2022-04-10 11:00:00 34.7 kg/m2 Common [facility] oximetry 2022-04-10 11:00:00 98 % Common [facility] respiratory rate 2022-04-10 11:00:00 16 /min Comm on [facility] blood pressure 2022-04-10 11:00:00 117 mm[Hg] Common [facility] - systolic [facility] blood pressure 2022-04-10 11:00:00 80 mm[Hg] [facility] - diastolic [facility] height 2022-04-03 11:40:00 64 [in_i] Common S pirit [facility] weight 2022-04-03 11:40:00 201.8 [lb_av] Common [facility] temperature 2022-04-03 11:40:00 97.0 [degF] Common S pirit - [facility] bmi 2022-04-03 11:40:00 34.64 kg/m2 Common S pirit [facility] oximetry 2022-04-03 11:40:00 98 % Common S pirit [facility] respiratory rate 2022-04-03 11:40:00 16 /min Comm on [facility] blood pressure 2022-04-03 11:40:00 113 mm[Hg] Common [facility] - systolic [facility] blood pressure 2022-04-03 11:40:00 76 mm[Hg] [facility] - diastolic [facility] height 2022-03-24 08:20:00 64 [in_i] Common S pirit [facility] weight 2022-03-24 08:20:00 201.6 [lb_av] [facility] temperature 2022-03-24 08:20:00 97.6 [degF] Common [facility] bmi 2022-03-24 08:20:00 34.6 kg/m2 Common S pirit [facility] oximetry 2022-03-24 08:20:00 97 % Common S pirit [facility] respiratory rate 2022-03-24 08:20:00 16 /min Comm on [facility] blood pressure 2022-03-24 08:20:00 111 mm[Hg] [facility] - systolic [facility] blood pressure 2022-03-24 08:20:00 75 mm[Hg] [facility] - diastolic [facility] height 2022-03-20 11:40:00 64 [in_i] Common S pirit [facility] weight 2022-03-20 11:40:00 205 [lb_av] Common [facility] temperature 2022-03-20 11:40:00 97.3 [degF] Common S pirit [facility] bmi 2022-03-20 11:40:00 35.18 kg/m2 Common [facility] oximetry 2022-03-20 11:40:00 99 % Common [facility] respiratory rate 2022-03-20 11:40:00 16 /min Comm on [facility] blood pressure 2022-03-20 11:40:00 119 mm[Hg] [facility] - systolic [facility] blood pressure 2022-03-20 11:40:00 80 mm[Hg] Common [facility] - diastolic [facility] height 2022-03-13 08:20:00 64 [in_i] Common [facility] weight 2022-03-13 08:20:00 202 [lb_av] [facility] temperature 2022-03-13 08:20:00 97.8 [degF] Common [facility] bmi 2022-03-13 08:20:00 34.67 kg/m2 [facility] oximetry 2022-03-13 08:20:00 97 % [facility] respiratory rate 2022-03-13 08:20:00 16 /min Comm on [facility] blood pressure 2022-03-13 08:20:00 105 mm[Hg] [facility] - systolic [facility] blood pressure 2022-03-13 08:20:00 74 mm[Hg] [facility] - diastolic [facility] height 2022-03-06 11:40:00 64 [in_i] Common [facility] weight 2022-03-06 11:40:00 202 [lb_av] Common [facility] temperature 2022-03-06 11:40:00 97.6 [degF] Common S pirit [facility] bmi 2022-03-06 11:40:00 34.67 kg/m2 Common S pirit [facility] oximetry 2022-03-06 11:40:00 98 % Common S pirit [facility] respiratory rate 2022-03-06 11:40:00 16 /min Comm on [facility] blood pressure 2022-03-06 11:40:00 108 mm[Hg] [facility] - systolic [facility] blood pressure 2022-03-06 11:40:00 73 mm[Hg] [facility] - diastolic [facility] height 2022-02-27 11:40:00 64 [in_i] Common S pirit [facility] weight 2022-02-27 11:40:00 204 [lb_av] Common S pirit [facility] temperature 2022-02-27 11:40:00 98.4 [degF] Common S pirit [facility] bmi 2022-02-27 11:40:00 35.01 kg/m2 Common S pirit [facility] oximetry 2022-02-27 11:40:00 98 % [facility] respiratory rate 2022-02-27 11:40:00 16 /min Comm on [facility] blood pressure 2022-02-27 11:40:00 114 mm[Hg] Common [facility] - systolic [facility] blood pressure 2022-02-27 11:40:00 74 mm[Hg] [facility] - diastolic [facility] height 2022-02-20 11:20:00 64 [in_i] Common S pirit [facility] weight 2022-02-20 11:20:00 204 [lb_av] Common S pirit [facility] temperature 2022-02-20 11:20:00 97.4 [degF] Common S pirit [facility] bmi 2022-02-20 11:20:00 35.01 kg/m2 Common S pirit [facility] oximetry 2022-02-20 11:20:00 99 % [facility] respiratory rate 2022-02-20 11:20:00 16 /min Comm on [facility] blood pressure 2022-02-20 11:20:00 114 mm[Hg] [facility] systolic [facility] blood pressure 2022-02-20 11:20:00 73 mm[Hg] Common [facility] - diastolic [facility] height 2022-01-15 09:00:00 64 [in_i] [facility] weight 2022-01-15 09:00:00 203 [lb_av] [facility] temperature 2022-01-15 09:00:00 99 [degF] [facility] bmi 2022-01-15 09:00:00 34.84 kg/m2 [facility] height 2022-01-09 13:40:00 64 [in_i] [facility] weight 2022-01-09 13:40:00 200 [lb_av] [facility] temperature 2022-01-09 13:40:00 97.9 [degF] [facility] bmi 2022-01-09 13:40:00 34.33 kg/m2 [facility] oximetry 2022-01-09 13:40:00 98 % [facility] respiratory rate 2022-01-09 13:40:00 18 /min Comm on [facility] height 2021-12-10 11:00:00 64 [in_i] Common [facility] weight 2021-12-10 11:00:00 200 [lb_av] [facility] bmi 2021-12-10 11:00:00 34.33 kg/m2 [facility] height 2021-11-28 14:40:00 64 [in_i] [facility] weight 2021-11-28 14:40:00 203 [lb_av] Common [facility] temperature 2021-11-28 14:40:00 97.2 [degF] Common [facility] bmi 2021-11-28 14:40:00 34.84 kg/m2 Common S pirit [facility] oximetry 2021-11-28 14:40:00 98 % [facility] respiratory rate 2021-11-28 14:40:00 18 /min Comm on Spirit - [facility] blood pressure 2021-11-28 14:40:00 112 mm[Hg] [facility] - systolic [facility] blood pressure 2021-11-28 14:40:00 70 mm[Hg] Common [facility] - diastolic [facility] Systolic blood 2020-07-18 18:56:00 102 mm[Hg] Univer [facility] Diastolic blood 2020-07-18 18:56:00 78 mm[Hg] Unive rsity [facility] Heart rate 2020-07-18 18:56:00 67 /min [facility] Body temperature 2020-07-18 18:56:00 36.67 [facility] 2020-07-18 18:56:00 18 /min [facility] Body height 2020-07-18 18:56:00 162.6 cm [facility] Body weight 2020-07-18 18:56:00 90.629 kg [facility] BMI 2020-07-18 18:56:00 34.30 kg/m2 [facility] Procedures Procedure Date / Time Performed Performing Clinician Sourc e PVR 2022-08-17 00:00:00 Common Spiri t [facility] nter POCT TEST 2020-07-18 00:00:00 Stephani Barrett [facility] Plan of Care Planned Activity Planned Date Details Comments Source Future Scheduled 2023-03-24 COVID-19 VACCINE [facility] Test 09:00:34 (#1) [code = COVID-19 VACCINE (#1)] Future Scheduled 2023-03-24 [facility] 09:00:34 screening (procedure) [code = 588677361] Future Scheduled 2023-03-24 [facility]ening for [facility] Test 09:00:34 malignant neoplasm of cervix (procedure) [code = 725634932] Future Scheduled 2023-03-24 [facility] 09:00:34 (#1) [code = INFLUENZA VACCINE (#1)] Encounters Start End Encounter Admission Attending Care Care Encounter Source Date/Time Date/Time Type Type Clinicians Facility Department ID 2022-12-22 [facility] [id number] Common 08:43:01 Courtney [id number] [facility] 2022-01-22 [facility] [id number] Common 08:04:02 Courtney [facility] 2021-12-22 [facility] [id number] Common 09:54:01 Courtney [facility] 2021-11-28 [facility] [id number] Common 13:17:01 Courtney [facility] 2023-03-18 2023-03-18 [id number] [facility] 00:00:00 00:00:00 [facility] [id number] i ty of [place] [id number] Ramon as MARYSE?BLEA [phone] [address] MEDICAL OFFICE BUILDING 2022-09-25 2022-09-25 NON-BILLAB [facility] [id number] Common 00:00:00 00:00:00 LE VISIT [facility] 2022-09-18 2022-09-18 NON-BILLAB [facility] [id number] Common 00:00:00 00:00:00 LE VISIT [facility] 2022-09-09 2022-09-09 (TEL) [facility] [id number] Co mmon 00:00:00 00:00:00 Spirit - [facility] 2022-09-09 2022-09-09 (TEL) STLMLC ST[facility] [id number] Co mmon 00:00:00 00:00:00 Spirit - [facility] 2022-09-02 2022-09-02 OFFICE STLMLC STLMLC [id number] Co mmon 00:00:00 00:00:00 VISIT Spirit ESTAB PT - CHI LEVEL 4 [facility] 2022-08-28 2022-08-28 NON-BILLAB STLMLC STLMLC [id number] Common 00:00:00 00:00:00 LE VISIT [facility] t [facility] 2022-08-21 2022-08-21 NON-BILLAB STLMLC STLMLC [id number] Common 00:00:00 00:00:00 LE VISIT [facility] t [facility] 2022-08-17 2022-08-17 OFFICE STLMLC STLMLC [id number] Co mmon 00:00:00 00:00:00 VISIT NEW Spir it PT LEVEL 2 - [facility] 2022-08-17 2022-08-17 (TEL) STLMLC STLMLC [id number] Co mmon 00:00:00 00:00:00 [facility] 2022-08-14 2022-08-14 NON-BILLAB STLMLC STLMLC [id number] Common 00:00:00 00:00:00 [facility] 2022-08-07 2022-08-07 OFFICE STLMLC STLMLC [id number] Co mmon 00:00:00 00:00:00 VISIT Spirit ESTAB PT - CHI LEVEL 4 [facility] 2022-07-31 2022-07-31 OFFICE STLMLC STLMLC [id number] Co mmon 00:00:00 00:00:00 VISIT Spirit ESTAB PT - CHI LEVEL 4 [facility] 2022-07-23 2022-07-23 (TEL) STLMLC STLMLC [id number] Co mmon 00:00:00 00:00:00 [facility] 2022-07-21 2022-07-21 OFFICE STLMLC STLMLC [id number] Co mmon 00:00:00 00:00:00 VISIT Spirit CHANELL PT - CHI LEVEL 4 [facility] 2022-07-08 2022-07-08 (TEL) STLMLC STLMLC [id number] Co mmon 00:00:00 00:00:00 Spirit - [facility] 2022-07-03 2022-07-03 OFFICE STLMLC STLMLC [id number] Co mmon 00:00:00 00:00:00 VISIT Power LUA PT - CHI LEVEL 3 [facility] 2022-06-19 2022-06-19 NON-BILLAB STLMLC STLMLC [id number] Common 00:00:00 00:00:00 LE VISIT [facility] 2022-06-12 2022-06-12 NON-BILLAB STLMLC STLMLC [id number] Common 00:00:00 00:00:00 LE VISIT [facility] 2022-05-29 2022-05-29 NON-BILLAB STLMLC STLMLC [id number] Common 00:00:00 00:00:00 LE VISIT [facility] 2022-05-22 2022-05-22 NON-BILLAB STLMLC STLMLC [id number] Common 00:00:00 00:00:00 LE VISIT [facility] 2022-05-15 2022-05-15 NON-BILLAB STLMLC STLMLC [id number] Common 00:00:00 00:00:00 LE VISIT [facility] 2022-05-01 2022-05-01 NON-BILLAB STLMLC STLMLC [id number] Common 00:00:00 00:00:00 LE VISIT [facility] 2022-04-23 2022-04-23 NON-BILLAB STLMLC STLMLC [id number] Common 00:00:00 00:00:00 LE VISIT [facility] 2022-04-17 2022-04-17 NON-BILLAB STLMLC STLMLC [id number] Common 00:00:00 00:00:00 LE VISIT [facility] 2022-04-10 2022-04-10 NON-BILLAB STLMLC STLMLC [id number] Common 00:00:00 00:00:00 LE VISIT [facility] 2022-04-03 2022-04-03 NON-BILLAB STLMLC STLMLC [id number] Common 00:00:00 00:00:00 LE VISIT [facility] 2022-03-24 2022-03-24 NON-BILLAB STLMLC STLMLC [id number] Common 00:00:00 00:00:00 LE VISIT [facility] 2022-03-20 2022-03-20 NON-BILLAB STLMLC STLMLC [id number] Common 00:00:00 00:00:00 LE VISIT [facility] 2022-03-13 2022-03-13 NON-BILLAB STLMLC STLMLC [id number] Common 00:00:00 00:00:00 LE VISIT [facility] 2022-03-06 2022-03-06 NON-BILLAB STLMLC STLMLC [id number] Common 00:00:00 00:00:00 LE VISIT [facility] 2022-02-27 2022-02-27 NON-BILLAB STLMLC STLMLC [id number] Common 00:00:00 00:00:00 LE VISIT [facility] 2022-02-20 2022-02-20 NON-BILLAB STLMLC STLMLC [id number] Common 00:00:00 00:00:00 LE VISIT [facility] 2022-01-15 2022-01-15 (TEL) STLMLC STLMLC [id number] Co mmon 00:00:00 00:00:00 [facility] 2022-01-15 2022-01-15 OFFICE STLMLC STLMLC [id number] Co mmon 00:00:00 00:00:00 VISIT EST Spir it PT LEVEL 3 [facility] 2022-01-09 2022-01-09 NON-BILLAB STLMLC STLMLC [id number] Common 00:00:00 00:00:00 LE VISIT Spiri t - [facility] 2021-12-10 2021-12-10 OFFICE STLMLC STLMLC [id number] Co mmon 00:00:00 00:00:00 VISIT EST Spir it PT LEVEL 3 - [facility] 2021-11-28 2021-11-28 OFFICE STLMLC STLMLC [id number] Co mmon 00:00:00 00:00:00 VISIT EST Spir it PT LEVEL 3 - [facility] 2021-07-30 2021-07-30 [facility] [id number] Univers 11:00:00 11:00:00 STEPHANI maria elena [facility] 2020-08-21 2020-08-21 [facility] [id number] Univers 00:00:00 00:00:00 [place] [id number] i [id number] [id number] De dic[address] 2020-08-20 2020-08-20 Telephone Yanira Perry [facility] [id number] Univers 00:00:00 00:00:00 Cam Gibran [id number] [id number] [id number] De dic[address] 2020-07-20 2020-07-20 Outpatient Jv BARBER [facility] [id number] Univers 10:00:00 10:00:00 [facility] 2020-07-20 2020-07-20 Out[address]BER [facility] [id number] Univers 09:15:00 09:15:00 [facility] 2020-07-18 2020-07-18 [facility] [id number] Univers 13:29:11 14:47:00 Visit Stephani Leary [id number] [id number] [id number] De dical nal [address] [facility] 2020-07-18 2020-07-18 Outpatient Jv BARRETT, [facility] [id number] Univers 13:30:00 13:30:00 STEPHANI [facility] 2020-07-15 2020-07-15 Outpatient Jv BARBER, [facility] [id number] Univers 08:40:00 08:40:00 ISSAC [facility] 2020-07-13 2020-07-13 Patient Doctor ELIDA [id number] Univers 00:00:00 00:00:00 Secure Msg Unassigned, KEYA [id number] ity [facility] [id number] Ramon as [phone] [address] 2020-06-24 2020-06-24 [facility] [id number] [facility] 08:30:00 08:30:00 [facility] [facility] 2020-06-05 2020-06-05 [facility] [id number] [place] 00:00:00 00:00:00 KRIST[place] [address] 2020-05-08 2020-05-08 [facility] [id number] [place] 00:00:00 00:00:00 KRISTIN [address] 2020-04-30 2020-04-[address] [facility] [id number] [place] 00:00:00 00:00:00 KRISTIN [address] 2020-04-25 2020-04-25 [facility] [id number] [place] 00:00:00 00:00:00 KRISTIN [address] 2020-01-31 2020-01-31 [facility] [id number] [place] 00:00:00 00:00:00 KRISTIN [address] Results Test Description Test Time Test Comments Results Result Comments Source POCT TEST 2020-07-18 19:14:00 Test Item Value Reference Range Interpretation Comme nts POCT PREG (test code = 1605) Negative On board controls acceptable with C Line (test code = 3574) Yes POCT PREG LOT # (test code = 3575) POCT PREG TEST DATE (test code = 3576) Lab Interpretation (test code = 52387-3) [id number] Test Item Value Reference Range Interpretation Comments POCT PREG (test code = 1605) Negative On board controls acceptable with C Yes Line (test code = 3574) POCT PREG LOT # (test code = 3575) POCT PREG TEST DATE (test code = 3576) Lab Interpretation (test code = Normal 38617-6) [facility] [Presence] in Respiratory specimen by ADAM with probe [id number] 17:08:58 Test Item Value Reference Range Interpretation Comments SARS-CoV-2 (COVID-19) RNA Not detected Not-Detected [Presence] in Respiratory specimen by ADAM with probe detection (test code = 08524-5) I[facility] GARAY, COVID 19 Antigen + [facility] + Flu by Ella
[2023-03-24 09:40] LABS: Albumin 3.6 g/dL (3.4-5.0); Bilirubin Direct 0.2 mg/dL (0-0.2); Bilirubin Indirect, Calculated 0.2 mg/dL (0.2-0.8); Bilirubin Total 0.4 mg/dL (0.2-1.0); Magnesium 2.1 mg/dL (1.6-2.4); Potassium 3.6 mEq/L (3.5-5.1); Protein, Total 7.3 g/dL (6.4-8.2); Thyroid Stimulating Hormone 1.26 uIU/mL (0.358-3.740); Troponin High Sensitivity 3.8 pg/mL (<58.9)
--- NOTE | 2023-03-24 10:14 | RAD REPORT ---
EXAM DESCRIPTION: Afsaneht Single View03/24/2023 9:25 am CLINICAL HISTORY: PALPITATIONS COMPARISON: Chest Pa And Lat (2 Views) dated 10/20/2021 TECHNIQUE: Portable AP view of the chest. FINDINGS: The lungs are clear. No pneumothorax or effusion. The cardiomediastinal contours are unre markable. IMPRESSION: No acute cardiopulmonary process.
--- NOTE | 2023-03-24 10:19 | RAD REPORT ---
EXAM DESCRIPTION: CT - Head Brain Wo Cont - 03/24/2023 9:12 am CLINICAL HISTORY: dizzy, syncope COMPARISON: Head Brain Wo Cont dated 08/07/2015 TECHNIQUE: Noncontrast head CT images were obtained without IV contrast. Multiplanar reformats were generated and reviewed. All CT scans are performed using dose optimization technique as appropriate and may include automated exposure control or mA/KV adjustment according to patient size. FINDINGS: No intracranial hemorrhage, mass, or edema. Midline structures are unremarkable. Normal ventricular caliber for age. Hooks-white matter differentiation is preserved, without evidence of acute infarct. No abnormal extra- axial fluid collections. Mastoid air cells and visualized portions of the paranasal sinuses are clear. No acute bony findings. IMPRESSION: No evidence of an acute intracranial process.
--- NOTE | 2023-03-24 10:38 | ER ---
Nurse's Notes [facility] Name: Elysia Coles Age: 37 yrs Sex: Female : 1985 Arrival Date: 03/24/2023 Time: 08:50 Bed 2 Private MD: Diagnosis: Syncope;Palpitations Presentation: 03/24 09:00 Chief complaint: Patient states: last night she got really hot and flush, she vomited iw once and then she passed out, today she still felt dizzy, felt like she was going to pass out at work, felt like her heart was racing. Coronavirus screen: At this time, the client does not indicate any symptoms associated with coronavirus-19. Ebola Screen: Patient negative for fever greater than or equal to 101.5 degrees Fahrenheit, and additional compatible Ebola Virus Disease symptoms Patient denies exposure to infectious person. Patient denies travel to an Ebola-affected area in the 21 days before illness onset. No symptoms or risks identified at this time. Initial Sepsis Screen: Does the patient meet any 2 criteria? No. Patient's initial sepsis screen is negative. Does the patient have a suspected source of infection? No. Patient's initial sepsis screen is negative. Risk Assessment: Do you want to hurt yourself or someone else? Patient reports no desire to harm self or others. Onset of symptoms was March 23, 2023. 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 - Family history:: not pertinent. - Social history:: Smoking status: unknown. - Hospitalizations: : No recent hospitalization is reported. Screenin:32 [facility] ED Fall Risk Assessment (Adult) History of falling in the last 3 months, ap3 including since admission No falls in past 3 months (0 pts). Abuse screen: Denies threats or abuse. Nutritional screening: No deficits noted. Tuberculosis screening: No symptoms or risk factors identified. Assessment: 09:33 General: Appears in no apparent distress. Behavior is calm, cooperative, anxious. Pain: ap3 Complains of pain in chest Pain does not radiate. Quality of pain is described as burning, Pain began gradually. Neuro: Level of Consciousness is awake, alert, obeys commands, Oriented to person, place, time, situation. Cardiovascular: Patient's skin is warm and dry. Rhythm is regular. 10:24 Reassessment: Patient appears in no apparent distress at this time. Patient and/or hb family updated on plan of care and expected duration. Pain level reassessed. Patient is alert, oriented x 3, equal unlabored respirations, skin warm/dry/pink. Vital Signs: 09:00 BP 125 / 78; Pulse 85; Resp 16; Temp 98.1; Pulse Ox 100% on R/A; iw 09:35 BP 106 / 76; Pulse 71; Resp 18; Pulse Ox 99% ; ap3 10:24 BP 103 / 75; Pulse 68; Resp 16; Pulse Ox 100% on R/A; hb ED Course: 08:51 Patient arrived in ED. rg4 08:54 Shen Peacock MD is Attending Physician. rn 08:54 Cherelle Victoria RN is Primary Nurse. ap3 09:02 Triage completed. iw 09:05 EKG done, by ED staff, reviewed by Shen Peacock MD. Inserted saline lock: 22 gauge in ap3 right antecubital area, using aseptic technique. Blood collected. Patient maintains SpO2 saturation greater than 95% on room air. 09:12 CT Head Brain wo Cont In Process Unspecified. EDMS 09:27 XRAY Chest (1 view) In Process Unspecified. EDMS 09:33 Arm band placed on right wrist. ap3 09:33 Patient has correct armband on for positive identification. Placed in gown. Bed in low ap3 position. Call light in reach. Side rails up X 1. monitoring tech on. Pulse ox on. NIBP on. 10:50 No provider procedures requiring assistance completed. IV discontinued, intact, ap3 bleeding controlled, No redness/swelling at site. Pressure dressing applied. 10:50 Provided Education on: discharge education . ap3 Administered Medications: No medications were administered Medication: 09:34 VIS not applicable for this client. ap3 Outcome: 10:37 Discharge ordered by MD. rn 10:50 Discharged to home ambulatory, with family, ap3 10:50 Condition: good 10:50 Discharge instructions given to patient, family, Instructed on discharge instructions, follow up and referral plans. Demonstrated understanding of instructions, follow-up care, 10:53 Patient left the ED. ap3 Signatures: Dispatcher [employer] Margaret Riojas, RN Shen Mckeon MD MD rn Baxter, Heather, RN RN hb Garcia, Rubi 4 Cherelle Victoria RN RN ap3
--- NOTE | 2023-03-24 10:38 | EDPHYS ---
Physician Documentation [facility] Name: Elysia Coles Age: 37 yrs Sex: Female : 1985 Arrival Date: 03/24/2023 Time: 08:50 Bed 2 Private MD: ED Physician Shen Peacock HPI: 03/24 09:24 This 37 yrs old Female presents to ER via Wheelchair with complaints of Passed Out rn Prior To Arrival. 09:24 The patient presents with dizziness, feeling faint, generalized weakness, rn lightheadedness. Onset: The symptoms/episode began/occurred last night. Modifying factors: The symptoms are alleviated by nothing, the symptoms are aggravated by standing up, changing position. Associated signs and symptoms: Pertinent positives: palpitations, Pertinent negatives: abdominal pain, chest pain, focal weakness, headache, shortness of breath, vomiting. Severity of symptoms: At their worst the symptoms were moderate in the emergency department the symptoms have improved. The patient has experienced similar episodes in the past. The patient has not recently seen a physician. Patient reports dizziness that began last night, intermittent, episodes last a few minutes, worse with changing position and standing up. Last night she got flushed, dizzy and lightheaded, had syncopal episode. No trauma from syncope. Went to work this morning and happened again except no syncope at this time, just lightheaded. Patient reports during episodes feels heart racing and palpitations. Denies any chest pain or shortness of breath before during or after episodes. Does not take any medication. Does report her twin has cardiac problems with arrhythmia and atrial fibrillation requiring ablation but she has been evaluated multiple times and no cardiac problems found. Currently feels a lot better. Does not feel ill. No recent infection. No fever.. 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 - Family history:: not pertinent. - Social history:: Smoking status: unknown. - Hospitalizations: : No recent hospitalization is reported. ROS: 09:24 Constitutional: Negative for fever, chills, and weight loss, Neck: Negative for injury, rn pain, and swelling, Cardiovascular: Positive for palpitations Respiratory: Negative for shortness of breath, cough, wheezing, and pleuritic chest pain, Abdomen/GI: Negative for abdominal pain, nausea, vomiting, diarrhea, and constipation, Back: Negative for injury and pain, MS/Extremity: Negative for injury and deformity, Skin: Negative for injury, rash, and discoloration, Neuro: Negative for headache, weakness, numbness, tingling, and seizure, Exam: 09:07 ECG was reviewed by the Attending Physician. rn 09:24 Constitutional: This is a well developed, well nourished patient who is awake, alert, rn and in no acute distress. Head/Face: Normocephalic, atraumatic. Eyes: Pupils equal round and reactive to light, extra-ocular motions intact. ENT: Moist mucous membranes, no stridor Cardiovascular: Regular rate and rhythm. No pulse deficits. Respiratory: No increased work of breathing, no retractions or nasal flaring. Abdomen/GI: Soft, non-tender Skin: Warm, dry MS/ Extremity: Pulses equal, no cyanosis. Equal circumference Neuro: Awake and alert, GCS 15, oriented to person, place, time, and situation. Cranial nerves II-XII grossly intact. Motor strength 5/5 in all extremities. Sensory grossly intact. Vital Signs: 09:00 BP 125 / 78; Pulse 85; Resp 16; Temp 98.1; Pulse Ox 100% on R/A; iw 09:35 BP 106 / 76; Pulse 71; Resp 18; Pulse Ox 99% ; ap3 10:24 BP 103 / 75; Pulse 68; Resp 16; Pulse Ox 100% on R/A; hb MDM: 08:54 Patient medically screened. rn 10:36 Differential diagnosis: cardiac arrhythmia, generalized weakness, GI bleed, rn hyperventilation, hypovolemia, idiopathic dizziness, near-syncope, , syncope, TIA, vertigo. Data reviewed: vital signs, nurses notes, lab test result(s), EKG, radiologic studies, CT scan, plain films, and as a result, I will discharge patient. Counseling: I had a detailed discussion with the patient and/or guardian regarding the historical points, exam findings, and any diagnostic results supporting the discharge/admit diagnosis, lab results, radiology results, the need for outpatient follow up, to return to the emergency department if symptoms worsen or persist or if there are any questions or concerns that arise at home. Response to treatment: the patient's symptoms have markedly improved after treatment, and as a result, I will discharge patient. Special discussion: I discussed with the patient/guardian in detail that at this point there is no indication for admission to the hospital. It is understood, however, that if the symptoms persist or worsen the patient needs to return immediately for re-evaluation. Based on the history and exam findings, there is no indication for further emergent testing or inpatient evaluation. I discussed with the patient/guardian the need to see the substitute teacher for further evaluation of the symptoms. I discussed with the patient/guardian the need to see the primary care provider for further evaluation of the symptoms. ED course: No acute findings and workup. No evidence of tachycardia or arrhythmia entire time she has been here and on [address] head negative. Chest x-ray negative. I have personally reviewed all of the results, including but not limited to blood tests and imaging deemed necessary to safely discharge this patient at this time. All results given to and printed out for patient. I personally went over all the results with the patient and answered all questions. Patient will follow-up with PCP and or specialist as discussed. Return precautions given and understood. Recommend follow-up with cardiology as her twin with cardiac problems and patient presents with syncope and palpitations.. 03/24 09:02 Order name: Basic Metabolic Panel; Complete Time: :48 rn 03/24 09:02 Order name: CBC with Diff; Complete Time: :48 03/24 09:02 Order name: LFT's; Complete Time: :48 rn 03/24 09:02 Order name: Magnesium; Complete Time: :48 rn 03/24 09:02 Order name: NT PRO-BNP; Complete Time: :48 03/24 09:02 Order name: Troponin HS; Complete Time: :48 rn 03/24 09:03 Order name: TSH; Complete Time: :48 rn 03/24 09:03 Order name: T4 Free; Complete Time: :48 rn 03/24 09:02 Order name: XRAY Chest (1 view); Complete Time: 10:17 rn 03/24 09:02 Order name: CT Head Brain wo Cont; Complete Time: rn 03/24 09:02 Order name: EKG; Complete Time: : rn 03/24 09:02 Order name: Cardiac monitoring; Complete Time: : rn 03/24 09:02 Order name: EKG - Nurse/Tech; Complete Time: : rn 03/24 09:02 Order name: IV Saline Lock; Complete Time: 09: rn 03/24 09:02 Order name: Labs collected and sent; Complete Time: : rn 03/24 09:02 Order name: O2 Per Protocol; Complete Time: : rn 03/24 09:02 Order name: O2 Sat Monitoring; Complete Time: : rn EC:07 Rate is 74 beats/min. Rhythm is regular. QRS [place] is Normal. LA interval is normal. QRS rn interval is normal. QT interval is normal. No Q waves. T waves are Normal. No ST changes noted. Clinical impression: Normal ECG. Interpreted by me. Reviewed by me. Administered Medications: No medications were administered Disposition Summary: 03/24/23 10:37 Discharge Ordered Notes: Location: Home rn Problem: new rn Symptoms: have improved rn Condition: Stable rn Diagnosis - Syncope rn - Palpitations rn Followup: rn - With: Private Physician - When: As needed - Reason: Recheck today's complaints, Re-evaluation by your physician Discharge Instructions: - Discharge Summary Sheet rn - Palpitations rn - Syncope rn Forms: - Medication Reconciliation Form rn - Thank You Letter rn - Antibiotic sales management intern - Prescription Opioid Use rn - Patient Portal Instructions rn - Leadership Thank You Letter rn Signatures: Dispatcher [employer] Shen Hebert MD MD rn Prokisch, Amanda, RN RN ap3
[2023-03-24 11:08] VITALS: TEMP 98.1
[2023-03-24 11:11] VITALS: BP 103/75; O2SAT 100
--- NOTE | 2023-03-29 17:01 | EKG ---
Test Date: 2023-03-24 Test Time: 08:58:19 Gasoline Catalyst Operator: ALP MEASUREMENT RESULTS: Intervals: Rate: 74 OH: 138 QRSD: 80 QT: 376 QTc: 417 [place]: P: 68 OH: 138 QRS: 35 T: 50 INTERPRETIVE STATEMENTS: Normal sinus rhythm Normal ECG No previous ECG available for comparison Electronically Signed On 03-29-23 16:54:31 LUMBER PLANER by Jean-Paul Reynolds
== END 2023-03-24 10:53 | disposition home or self-care (01) ==
LOC: SUPCPDRO 08:50 → ER 08:50
DX: R55 Syncope and collapse (principal); R00.2 Palpitations
CPT/HCPCS: 36415; 70450; 71045; 80048; 80076; 83735; 83880; 84439; 84443; 84484; 85025; 93005; 99285

== ENCOUNTER 2024-02-23 10:17 | Emergency (ER) | payer BC ==
[2024-02-23] MEDS ORDERED: NA CHLORIDE 0.9% 1,000 ML ONE (11:45)
[2024-02-23] MEDS ORDERED: ASPIRIN 81 MG CHEWABLE TABLET ONE (11:45)
[2024-02-23 11:48] LABS: Protime INR 1.07
[2024-02-23 12:10] LABS: ALT/SGPT 41 U/L (13-56); AST/SGOT 22 U/L (15-37); Albumin 3.5 g/dL (3.4-5.0); Albumin/Globulin Ratio 0.9 (1.1-1.8); Alkaline Phosphatase 96 U/L (45-117); Anion Gap 7.8 mEq/L (5.0-15.0); BUN Blood Urea Nitrogen 13 mg/dL (7-18); Bicarbonate 26 mEq/L (21-32); Bilirubin Total 0.4 mg/dL (0.2-1.0); Glomerular Filtration Rate 98 ml/min (=/>90); Glucose Level 107 mg/dL (74-106); Lipase 31 U/L (13-75); Magnesium 2.2 mg/dL (1.6-2.4); NT PRO-BNP 58 pg/mL (<125); Potassium 3.8 mEq/L (3.5-5.1); Protein, Total 7.5 g/dL (6.4-8.2); Sodium Level 138 mEq/L (136-145)
[2024-02-23 12:11] LABS: Bilirubin Direct < 0.2 mg/dL (0-0.2); Bilirubin Indirect, Calculated 0.2 mg/dL (0.2-0.8); Troponin High Sensitivity < 3.0 pg/mL (<58.9)
[2024-02-23 12:12] LABS: Absolute Eosinophils 0.1 K/uL (0-0.5); Absolute Lymphocytes (CBC) 1.8 K/uL (0.7-4.9); Absolute Monocytes 0.4 K/uL (0.1-1.3); Absolute Neutrophil 3.6 K/uL (1.8-8.0); Basophils % 0.6 % (0-1.3); Eosinophils % 1.6 % (0-4.4); Hemoglobin 12.4 g/dL (12.0-15.0); Lymphocytes % 30.2 % (15.3-44.8); MCH 28.7 pg (27.0-35.0); MCHC 32.7 g/dL (32.0-36.0); MCV 87.7 fL (80-100); MPV 9.5 fL (7.6-11.3); Monocytes % 7.5 % (3.3-12.3); Neutrophils % 60.1 % (41.7-73.7); Platelets 252 thou/uL (152-406); RBC Red Blood Cell Count 4.33 M/uL (3.86-4.86)
--- NOTE | 2024-02-23 12:59 | RAD REPORT ---
Procedure: Chest Single View HISTORY: Chest pain COMPARISON: 2022 FINDINGS: The lungs appear clear of acute infiltrate. No significant pleural effusion noted. The heart is normal size. IMPRESSION: No acute abnormality is displayed.
[2024-02-23 14:07] LABS: Barbiturates NEGATIVE (NEGATIVE); Benzodiazepines NEGATIVE (NEGATIVE); Cocaine NEGATIVE (NEGATIVE); METHAMPHETAM NEGATIVE (NEGATIVE); Methadone NEGATIVE (NEGATIVE); Opiates NEGATIVE (NEGATIVE); Phencyclidine NEGATIVE (NEGATIVE); THC Cannibis NEGATIVE (NEGATIVE)
[2024-02-23 14:10] LABS: Specific Gravity 1.016 (1.005-1.030)
[2024-02-23] MEDS ORDERED: MECLIZINE HCL 12.5 MG TAB ONE (14:13)
[2024-02-23] MEDS ORDERED: METOCLOPRAMIDE 10 MG/2mL INJ ONE (14:13)
[2024-02-23] MEDS ORDERED: DIPHENHYDRAMINE 50 MG/ML VIAL ONE (14:13)
[2024-02-23] MEDS ORDERED: KETOROLAC 30 MG/ML INJ ONE (14:13)
[2024-02-23 14:29] LABS: Specific Gravity 1.016 (1.005-1.030); Sqamous Epithelial <5 /HPF (None Seen); Urine Bacteria <20 /HPF (<20); Urine Bilirubin NEGATIVE (Negative); Urine Blood Negative (Negative); Urine Clarity Turbid (Clear); Urine Color Light-Yellow (Yellow); Urine Culture Reflex Order NOT NEEDED; Urine Glucose NEGATIVE (Negative); Urine Ketones NEGATIVE (Negative); Urine Microscopic Reflex YN ORDER UMIC; Urine Mucus Slight /HPF (None Seen); Urine Nitrite NEGATIVE (Negative); Urine Protein NEGATIVE (Negative); Urine RBC <5 /HPF (None Seen); Urine Urobilinogen Normal (Normal); Urine WBC <5 /HPF (<5)
--- NOTE | 2024-02-23 14:53 | RAD REPORT ---
EXAMINATION: US CAROTID DUPLEX CLINICAL INDICATION: Dizziness TECHNIQUE: Real-time grayscale, color flow and spectral Doppler sonographic images were obtained of t extracranial carotid system using a linear transducer. COMPARISON: No prior exam. FINDINGS: The velocity of the right internal carotid artery 92 cm/s The right ICA/CCA ratio normal The velocity left internal carotid artery 90 cm/s The left ICA/CCA ratio normal No significant plaque visualized within the arteries. Vertebral arteries demonstrate anterograde flow. No significant abnormality external carotid arteries Methods for NASCET criteria: mild stenosis, 0% to 49%; moderate, 50% to 69%; severe stenosis, 70% to 99% IMPRESSION: No significant vascular abnormality displayed
--- NOTE | 2024-02-23 15:47 | ER ---
Nurse's Notes [facility] Name: Elysia Coles Age: 38 yrs Sex: Female : 1985 Arrival Date: 02/23/2024 Time: 10:17 Bed 6 Private MD: Diagnosis: Chest pain, unspecified;Dizziness and giddiness;Headache;UTI/ Urinary tract infection, site not specified Presentation: 02/22 10:42 Chief complaint: Patient states: Was sitting at work and patient started having cm10 dizziness, blurred vision and some chest heaviness. Pt states that this began at 0830. Coronavirus screen: Client denies travel out of the [place] in the last 14 days. Ebola Screen: Patient denies travel to an Ebola-affected area in the 21 days before illness onset. No symptoms or risks identified at this time. Initial Sepsis Screen: Does the patient meet any 2 criteria? No. Patient's initial sepsis screen is negative. Does the patient have a suspected source of infection? No. Patient's initial sepsis screen is negative. Risk Assessment: Do you want to hurt yourself or someone else? Patient reports no desire to harm self or others. Onset of symptoms was February 23, 2024. 10:42 Method Of Arrival: Wheelchair cm10 10:42 Acuity: GIORGIO 3 cm10 Triage Assessment: 10:43 General: Appears in no apparent distress. uncomfortable, Behavior is calm, cooperative. cm10 Neuro: No deficits noted. Level of Consciousness is awake, alert, obeys commands, Oriented to person, place, time, situation, Appropriate for age Reports blurred vision dizziness. Respiratory: No deficits noted. Airway is patent Respiratory effort is even, unlabored, Respiratory pattern is regular, symmetrical. Historical: - Allergies: 10:43 No Known Allergies; cm10 - Home Meds: 10:43 None [Active]; cm10 - PMHx: 10:43 Syncope; cm10 - Immunization history:: Adult Immunizations up to date. - Infectious Disease History:: Denies. - Social history:: Smoking status: Patient denies any tobacco usage or history of. Screenin:29 [facility] ED Fall Risk Assessment (Adult) History of falling in the last 3 months, hb including since admission No falls in past 3 months (0 pts) Confusion or Disorientation No (0 pts) Intoxicated or Sedated No (0 pts) Impaired Gait Yes (1 pt) Mobility Assist Device Used No (0 pt) Altered Elimination No (0 pt) Score/Fall Risk Level 3 or more points = High Risk Oriented to surroundings, Maintained a safe environment, Educated pt \T\ family on fall prevention, incl call for assistance when getting out of bed, Assessed \T\ reinforced patient's understanding of fall precautions. Abuse screen: Denies threats or abuse. Denies injuries from another. Nutritional screening: No deficits noted. Tuberculosis screening: No symptoms or risk factors identified. Assessment: 11:22 General: Appears in no apparent distress. Behavior is calm, cooperative. Pain: Pain hb currently is 5 out of 10 on a pain scale. Neuro: GCS 15. Reports dizziness, headache. Cardiovascular: Patient's skin is warm and dry. Respiratory: Respiratory effort is even, unlabored, Respiratory pattern is regular, symmetrical. GI: No signs and/or symptoms were reported involving the gastrointestinal system. : No signs and/or symptoms were reported regarding the genitourinary system. EENT: No signs and/or symptoms were reported regarding the EENT system. Derm: Skin is pink, warm \T\ dry. Musculoskeletal: No signs and/or symptoms reported regarding the musculoskeletal system. 12:45 Reassessment: Patient appears in no apparent distress at this time. Patient and/or hb family updated on plan of care and expected duration. Pain level reassessed. Patient is alert, oriented x 3, equal unlabored respirations, skin warm/dry/pink. 14:45 Reassessment: Patient appears in no apparent distress at this time. Patient and/or hb family updated on plan of care and expected duration. Pain level reassessed. Patient is alert, oriented x 3, equal unlabored respirations, skin warm/dry/pink. 16:02 Reassessment: DC ON HOLD FOR IV ABX. bp Vital Signs: 10:42 BP 115 / 78; Pulse 66; Resp 16; Temp 97.4; Pulse Ox 100% on R/A; Weight 90.72 kg; cm10 Height 5 ft. 4 in. ; Pain 5/10; 11:59 BP 106 / 86; Pulse 67; Resp 17; Pulse Ox 98% on R/A; Pain 0/10; hb 13:19 BP 116 / 82; Pulse 69; Resp 14; Pulse Ox 100% on R/A; hb 15:00 BP 126 / 86; Pulse 77; Resp 19; Pulse Ox 100% ; bp 16:00 BP 119 / 85; Pulse 69; Resp 19; Pulse Ox 100% ; bp 10:42 Body Mass Index 34.33 (90.72 kg, 162.56 cm) cm10 10:42 Pain Scale: Adult cm10 11:59 Pain Scale: Adult hb ED Course: 10:19 Patient arrived in ED. im 10:21 Ephraim Barahona MD is Attending Physician. chloe 10:43 Triage completed. cm10 10:44 Arm band placed on left wrist. Patient placed in waiting room. EKG completed in triage. cm10 Results shown to MD. 10:50 Errol Taylor, RN is Primary Nurse. bp 11:25 Radiology exam delayed due to IV insertion attempt and/or patient not having mh1 appropriate IV at this time. 11:28 Initial lab(s) drawn, by me. Inserted saline lock: 20 gauge in right antecubital area, hb using aseptic technique. Blood collected. Flushed with 10 mL NS. 11:29 Patient has correct armband on for positive identification. Provided Education on: use hb of call light . 12:49 XRAY Chest (1 view) In Process Unspecified. EDMS 13:46 UDS Sent. hb 13:46 PREGU Sent. hb 13:46 Urinalysis w/ reflexes Sent. hb 14:21 Patient moved to MRI via wheelchair. hb 14:34 US Carotid Artery Bilateral In Process Unspecified. EDMS 15:35 Brain Wo Cont In Process Unspecified. EDMS 15:46 Dale Mendez MD is Referral Physician. chloe 15:46 Jean-Paul Reynolds MD is Referral Physician. chloe 16:04 No provider procedures requiring assistance completed. bp 16:54 IV discontinued, intact, bleeding controlled, No redness/swelling at site. Pressure hb dressing applied. Administered Medications: 11:15 Drug: Aspirin PO Chewable Tablet 81 mg PO once Route: PO; bp 15:59 Follow up: Response: No adverse reaction bp 11:15 Drug: NS 0.9% IV 1000 ml IV at 1000 ml once; to be given as a bolus over 60 minutes bp Route: IV; Rate: 1000 ml; Site: right antecubital; 15:59 Follow up: IV Status: Completed infusion bp 14:20 Drug: Ketorolac IVP 30 mg IVP once Route: IVP; Site: right antecubital; hb 15:59 Follow up: Response: No adverse reaction bp 14:20 Drug: Meclizine PO 25 mg PO once Route: PO; hb 15:59 Follow up: Response: No adverse reaction bp 14:21 Drug: metoCLOPramide IVP 10 mg IVP once; over 1 to 2 minutes Route: IVP; Site: right hb antecubital; 15:59 Follow up: Response: No adverse reaction bp 14:21 Drug: diphenhydrAMINE IVP 37.5 mg IVP once Route: IVP; Site: right antecubital; hb 15:59 Follow up: Response: No adverse reaction bp 15:58 Drug: Rocephin IV 1 grams IV at per protocol once; Given slow IV push per pharmacy bp instructions Route: IV; Rate: per protocol; Site: right antecubital; 16:54 Follow up: Response: No adverse reaction; IV Status: Completed infusion; IV Intake: 50mlhb Medication: 11:29 VIS not applicable for this client. hb Intake: 16:54 IV: 50ml; Total: 50ml. hb Outcome: 15:46 Discharge ordered by . chloe 16:53 Discharged to home ambulatory, with friend, 16:53 Condition: stable 16:53 Discharge instructions given to patient, Instructed on discharge instructions, follow up and referral plans. medication usage, Demonstrated understanding of instructions, follow-up care, medications, Prescriptions given X 4, 16:55 Patient left the ED. Signatures: Dispatcher [employer] EDMS Ephraim Barahona MD MD cha Harvey, [facility] Skyla Ibarra, BO RN Errol Taylor, RN RN bp Pooja Milian Clarissa, RN RN cm10 Corrections: (The following items were deleted from the chart) 10:43 10:43 Home Meds: Unable to obtain; cm10 cm10 10:44 10:42 Chief complaint: Patient states: Was sitting at work and patient started having cm10 dizziness, blurred vision and some chest heaviness. Pt states that she did not have a syncopal episode. cm10
--- NOTE | 2024-02-23 15:47 | EDPHYS ---
Physician Documentation [facility] Name: Elysia Coles Age: 38 yrs Sex: Female : 1985 Arrival Date: 02/23/2024 Time: 10:17 Bed 6 Private MD: JERMAIN Physician Ephraim Barahona HPI: 02/22 14:04 This 38 yrs old Female presents to ER via Wheelchair with complaints of Chest chloe Pain, Blurred Vision, Dizziness, Syncope. 14:04 The patient or guardian reports chest pain that is located primarily in the substernal chloe area. Historical: - Allergies: 10:43 No Known Allergies; cm10 - Home Meds: 10:43 None [Active]; cm10 - PMHx: 10:43 Syncope; cm10 - Immunization history:: Adult Immunizations up to date. - Infectious Disease History:: Denies. - Social history:: Smoking status: Patient denies any tobacco usage or history of. ROS: 14:05 Constitutional: Negative for fever, chills, and weight loss, Eyes: Negative for injury, chloe pain, redness, and discharge, ENT: Negative for injury, pain, and discharge, Neck: Negative for injury, pain, and swelling, Respiratory: Negative for shortness of breath, cough, wheezing, and pleuritic chest pain, Abdomen/GI: Negative for abdominal pain, nausea, vomiting, diarrhea, and constipation, Back: Negative for injury and pain, : Negative for injury, bleeding, discharge, and swelling, MS/Extremity: Negative for injury and deformity, Skin: Negative for injury, rash, and discoloration, Psych: Negative for depression, anxiety, suicide ideation, homicidal ideation, and hallucinations, Allergy/Immunology: Negative for hives, rash, and allergies, Endocrine: Negative for neck swelling, polydipsia, polyuria, polyphagia, and marked weight changes, Hematologic/Lymphatic: Negative for swollen nodes, abnormal bleeding, and unusual bruising, 14:05 Cardiovascular: Positive for chest pain, 14:05 Neuro: Positive for dizziness, headache, Exam: 14:05 Constitutional: This is a well developed, well nourished patient who is awake, alert, chloe and in no acute distress. Head/Face: Normocephalic, atraumatic. Eyes: Pupils equal round and reactive to light, extra-ocular motions intact. Lids and lashes normal. Conjunctiva and sclera are non-icteric and not injected. Cornea within normal limits. Periorbital areas with no swelling, redness, or edema. ENT: Nares patent. No nasal discharge, no septal abnormalities noted. Tympanic membranes are normal and external auditory canals are clear. Oropharynx with no redness, swelling, or masses, exudates, or evidence of obstruction, uvula midline. Mucous membranes moist. Neck: Trachea midline, no thyromegaly or masses palpated, and no cervical lymphadenopathy. Supple, full range of motion without nuchal rigidity, or vertebral point tenderness. No Meningismus. Chest/axilla: Normal chest wall appearance and motion. Nontender with no deformity. No lesions are appreciated. Cardiovascular: Regular rate and rhythm with a normal S1 and S2. No gallops, murmurs, or rubs. Normal PMI, no JVD. No pulse deficits. Respiratory: Lungs have equal breath sounds bilaterally, clear to auscultation and percussion. No rales, rhonchi or wheezes noted. No increased work of breathing, no retractions or nasal flaring. Abdomen/GI: Soft, non-tender, with normal bowel sounds. No distension or tympany. No guarding or rebound. No evidence of tenderness throughout. Back: No spinal tenderness. No costovertebral tenderness. Full range of motion. Pelvic Exam: Normal external genitalia. Speculum exam with closed cervical os, no discharge or bleeding noted. Bimanual exam with normal adnexa, no adnexal or cervical motion tenderness. Normal uterus. Skin: Warm, dry with normal turgor. Normal color with no rashes, no lesions, and no evidence of cellulitis. MS/ Extremity: Pulses equal, no cyanosis. Neurovascular intact. Full, normal range of motion. Neuro: Awake and alert, GCS 15, oriented to person, place, time, and situation. Cranial nerves II-XII grossly intact. Motor strength 5/5 in all extremities. Sensory grossly intact. Cerebellar exam normal. Normal gait. Psych: Awake, alert, with orientation to person, place and time. Behavior, mood, and affect are within normal limits. 14:05 ECG was reviewed by the Attending Physician. 14:05 Musculoskeletal/extremity: DVT Exam: No signs of deep vein thrombosis. no pain, no swelling, no tenderness, negative Homans' sign noted on exam, no appreciated bluish discoloration, no erythema, no increased warmth, Vital Signs: 10:42 BP 115 / 78; Pulse 66; Resp 16; Temp 97.4; Pulse Ox 100% on R/A; Weight 90.72 kg; cm10 Height 5 ft. 4 in. ; Pain 5/10; 11:59 BP 106 / 86; Pulse 67; Resp 17; Pulse Ox 98% on R/A; Pain 0/10; hb 13:19 BP 116 / 82; Pulse 69; Resp 14; Pulse Ox 100% on R/A; hb 15:00 BP 126 / 86; Pulse 77; Resp 19; Pulse Ox 100% ; bp 16:00 BP 119 / 85; Pulse 69; Resp 19; Pulse Ox 100% ; bp 10:42 Body Mass Index 34.33 (90.72 kg, 162.56 cm) cm10 10:42 Pain Scale: Adult cm10 11:59 Pain Scale: Adult hb MDM: 10:21 Medical Screening Exam initiated chloe 14:07 Differential diagnosis: abnormal EKG, acute myocardial infarction, acute pericarditis, chloe anxiety, coronary artery disease chest wall pain, pancreatitis, peptic ulcer disease, pericarditis, pleurisy, pneumonia, pulmonary embolus, stable angina, thoracic aortic disection, unstable angina. HEART Score: History: Slightly Suspicious (0), ECG: Non specific repolarization disturbance / LBTB / PM (1), Age: > 45 and < 65 years (1), Risk Factors: 1 or 2 risk factors (1), [+ Family HX] Troponin: < or = 1 x Normal Limit (0). HEART Score: Total Score = 3. LUDIVINA Risk Score: TOTAL SCORE =. Data reviewed: vital signs, nurses notes, lab test result(s), EKG, radiologic studies, doppler, MRI, plain films. Consideration of Admission/Observation Escalation of care including admission/observation considered. I considered the following discharge prescriptions or medication management in the emergency department Medications were administered in the Emergency Department. See MAR. Independent interpretation of the following test(s) in the Emergency Department EKG: See my EKG interpretation above. Test considered but Not performed: Ultrasound NO 2 D ECHO. Historians other than the Patient: Parent: MPM WELL INFORMED. Care significantly affected by the following chronic conditions: Obesity, SYNCOPE, POTS. Counseling: I had a detailed discussion with the patient and/or guardian regarding the historical points, exam findings, and any diagnostic results supporting the discharge/admit diagnosis, lab results, radiology results, the need for outpatient follow up, for definitive care, a nut former, a family practitioner, a neurologist. 02/22 10:22 Order name: Basic Metabolic Panel; Complete Time: 13:01 02/22 10:22 Order name: CBC with Diff; Complete Time: 13:02/22 10:22 Order name: LFT's; Complete Time: 13:02/22 10:22 Order name: Magnesium; Complete Time: 13:02/22 10:22 Order name: NT PRO-BNP; Complete Time: 13:02/22 10: Order name: PT-INR; Complete Time: 13:02/22 10:22 Order name: Troponin HS; Complete Time: 13:02/22 10:22 Order name: Lipase; Complete Time: 13:02/22 10:22 Order name: Urinalysis w/ reflexes; Complete Time: 15:37 02/22 10:22 Order name: PREGU; Complete Time: 15:37 02/22 10:22 Order name: UDS; Complete Time: 15:37 02/22 14:04 Order name: Troponin High Sensitivity: NOW; Complete Time: 15:37 02/22 14:05 Order name: D-Dimer; Complete Time: 15:37 02/22 10:22 Order name: XRAY Chest (1 view); Complete Time: 13:01 02/22 14:02 Order name: US Carotid Artery Bilateral; Complete Time: 15:37 02/22 15:05 Order name: Brain Wo Cont EDMS 02/22 10:22 Order name: EKG; Complete Time: 10:23 02/22 10:22 Order name: Cardiac monitoring; Complete Time: 11:14 02/22 10:22 Order name: EKG - Nurse/Tech; Complete Time: 11:13 02/22 10:22 Order name: IV Saline Lock; Complete Time: 11:32 02/22 10:22 Order name: Labs collected and sent; Complete Time: 11:32 chloe 02/22 10:22 Order name: O2 Per Protocol; Complete Time: 11:14 02/22 10:22 Order name: O2 Sat Monitoring; Complete Time: : chloe EC:05 Rate is 73 beats/min. Rhythm is regular. QRS [place] is Normal. [place] interval is normal. QRS chloe interval is normal. QT interval is normal. No Q waves. T waves are Normal. No ST changes noted. Clinical impression: NSR w/ Non-specific ST/T Changes and No evidence of ischemia. Interpreted by me. Reviewed by me. Administered Medications: 11:15 Drug: Aspirin PO Chewable Tablet 81 mg PO once Route: PO; bp 15:59 Follow up: Response: No adverse reaction bp 11:15 Drug: NS 0.9% IV 1000 ml IV at 1000 ml once; to be given as a bolus over 60 minutes bp Route: IV; Rate: 1000 ml; Site: right antecubital; 15:59 Follow up: IV Status: Completed infusion bp 14:20 Drug: Ketorolac IVP 30 mg IVP once Route: IVP; Site: right antecubital; hb 15:59 Follow up: Response: No adverse reaction bp 14:20 Drug: Meclizine PO 25 mg PO once Route: PO; hb 15:59 Follow up: Response: No adverse reaction bp 14:21 Drug: metoCLOPramide IVP 10 mg IVP once; over 1 to 2 minutes Route: IVP; Site: right hb antecubital; 15:59 Follow up: Response: No adverse reaction bp 14:21 Drug: diphenhydrAMINE IVP 37.5 mg IVP once Route: IVP; Site: right antecubital; hb 15:59 Follow up: Response: No adverse reaction bp 15:58 Drug: Rocephin IV 1 grams IV at per protocol once; Given slow IV push per pharmacy bp instructions Route: IV; Rate: per protocol; Site: right antecubital; 16:54 Follow up: Response: No adverse reaction; IV Status: Completed infusion; IV Intake: 50mlhb Disposition Summary: 02/23/24 15:46 Discharge Ordered Notes: Location: Home chloe Problem: new chloe Symptoms: have improved chloe Condition: Stable chloe Diagnosis - Chest pain, unspecified chloe - Dizziness and giddiness chloe - Headache chloe - UTI/ Urinary tract infection, site not specified chloe Followup: chloe - With: Private Physician - When: 2 - 3 days - Reason: Recheck today's complaints, Continuance of care, Re-evaluation by your physician Followup: chloe - With: Dale Mendez MD - When: 2 - 3 days - Reason: Recheck today's complaints, Re-evaluation by your physician Followup: chloe - With: Jean-Paul Reynolds MD - When: 2 - 3 days - Reason: Recheck today's complaints, Re-evaluation by your physician Discharge Instructions: - Discharge Summary Sheet chloe - Benign Positional Vertigo chloe - Nonspecific Chest Pain, Adult chloe - Dizziness chloe - General Headache Without Cause chloe - Urinary Tract Infection, Adult chloe - Urinary Tract Infection, Adult, [id number] chloe - Nonspecific Chest Pain, Adult, [id number] chloe - Vertigo, [id number] chloe - Aspirin and Your Heart chloe - General Headache Without Cause, [id number] chloe Forms: - Medication Reconciliation Form chloe - Antibiotic Education chloe - Prescription Opioid Use chloe - Patient Portal Instructions chloe - Leadership Thank You Letter [facility] Prescriptions: - Fioricet with Codeine [id number] mg Oral capsule - take 2 capsule ORAL route every 4 hours as needed for pain; do not exceed 6 chloe caps per day; 20 capsule; Refills: 0, Product Selection Permitted - ondansetron 4 mg Oral Tablet,disintegrating - take 1 tablet ORAL route every 6 to 8 hours as needed for nausea and vomiting; chloe 2 tablet; Refills: 0, Product Selection Permitted - cefdinir 300 mg Oral capsule - take 1 capsule ORAL route 2 times per day for 5 days; 10 capsule; Refills: 0, [facility] Product Selection Permitted - Meclizine 25 mg Oral Tablet - take 1 tablet ORAL route every 8 hours As needed; 30 tablet; Refills: 0, [facility] Product Selection Permitted Signatures: Dispatcher [employer] EDMS Ephraim Barahona MD MD cha Baxter, Heather, RN RN Errol Taylor RN RN bp Martinez, Clarissa, RN RN cm10 Corrections: (The following items were deleted from the chart) 10:43 10:43 Home Meds: Unable to obtain; cm10 cm10 14:03 14:03 MR STROKE PROTOCOL+MRI.RAD.BRZ ordered. EDMS EDMS 14:04 14:04 Troponin High Sensitivity+C.LAB.BRZ ordered. EDMS EDMS
--- NOTE | 2024-02-23 15:53 | RAD REPORT ---
EXAMINATION: MRI BRAIN WITHOUT CONTRAST CLINICAL INDICATION: Headache and dizziness TECHNIQUE: Multiplanar multisequence MR images of the brain were obtained without intravenous contras t. Unless otherwise specified, incidental findings do not require dedicated imaging follow-up. COMPARISON: [address] FINDINGS: No significant abnormal signal within the brain. Diffusion weighted/ADC mapping does not reveal evidence of an acute infarction. Ventricles are normal caliber. No extra-axial fluid collection. No fluid within the sinuses/mastoid seen IMPRESSION: No acute abnormalities displayed
[2024-02-23] MEDS ORDERED: CEFTRIAXONE 1000 MG/VIAL ONE (15:54)
[2024-02-23] MEDS ORDERED: NA CHLORIDE 0.9% 100 ML ONE (15:54)
[2024-02-23 22:53] VITALS: TEMP 97.4
[2024-02-23 23:03] VITALS: O2SAT 100
[2024-02-23 23:05] VITALS: BP 119/85
--- NOTE | 2024-02-24 12:18 | EKG ---
Test Date: 2024-02-23 Test Time: 10:40:19 [employer] Officer: GLADIS MEASUREMENT RESULTS: Intervals: Rate: 73 AR: 144 QRSD: 68 QT: 378 QTc: 416 [place]: P: 57 AR: 144 QRS: -32 T: 52 INTERPRETIVE STATEMENTS: Normal sinus rhythm Left axis deviation Low voltage QRS Abnormal ECG Compared to ECG 03/24/2023 09:27:42 Left-axis deviation now present Low QRS voltage now present Electronically Signed On 02-24-24 12:14:49 CDT by Gt [employer]ill
== END 2024-02-23 16:55 | disposition home or self-care (01) ==
LOC: ER 10:17
DX: R07.9 Chest pain, unspecified (principal); N39.0 Urinary tract infection, site not specified; R42 Dizziness and giddiness; R51.9 Headache, unspecified
CPT/HCPCS: 96365; 96361; 93005; 85025; 81001; 80048; 36415; 83735; 81025; 85610; 85379; 80076; 84484 ×2; 83690; 83880; 80307; 71045; 93880; 70551; 96375; 99285; J8597; J2765; J1200; J7030; J0696